=== PATIENT | male | born 1945 | race Caucasian/White ===

== ENCOUNTER 2021-10-22 07:07 | Day surgery (SDC) | payer OTHER ==
[2021-10-22] MEDS ORDERED: CEFAZOLIN SODIUM 1 GM/VIAL ONE (07:29)
[2021-10-22] MEDS ORDERED: Ringers Lactate 1,000 ML IV ONE (07:29)
[2021-10-22] MEDS ORDERED: propofoL 200 MG/20 ML VIAL IV ONE (07:58)
[2021-10-22] MEDS ORDERED: LIDOCAINE 1% MPF 5 ML VIAL ONE (07:58)
--- NOTE | 2021-10-22 08:40 | ENDO RPT ---
[address], [address] EGD WITH PEG PROCEDURE REPORT EXAM DATE: 10/22/2021 PATIENT NAME: Balwinder Cox MR #: [id number] BIRTHDATE: 1945 ATTENDING: Jesse Church DR STATUS: outpatient [employer] VESSEL: Kristine Ledezma RN and El Hobson [facility] INDICATIONS: The patient is a 76 yr old Male here for an EGD with PEG due to dysphagia and Oropharyngeal Cancer PROCEDURE PERFORMED: EGD with PEG placement EGD with snare polypectomy MEDICATIONS: Per Anesthesia. TOPICAL ANESTHETIC: none CONSENT: The patient understands the risks and benefits of the procedure and understands that these risks include, but are not limited to: sedation, allergic reaction, infection, perforation and/or bleeding. Alternative means of evaluation and treatment include, among others: physical exam, x-rays, and/or surgical intervention. The patient elects to proceed with this endoscopic procedure. DESCRIPTION OF PROCEDURE: During intra-op preparation period all mechanical medical equipment was checked for proper function. Hand hygiene and appropriate measures for infection prevention was taken. After the risks, benefits and alternatives of the procedure were thoroughly explained, Informed consent was verified, confirmed and timeout was successfully executed by the treatment team. The patient was anesthetized with topical anesthesia and the EG-[id number] ([id number]) endoscope was introduced through the mouth and advanced to the second portion of the duodenum. The instrument was slowly withdrawn as the mucosa was fully examined. A pedunculated polyp was found in the bulb of the duodenum. Monopolar cautery was performed. Polyp was snared, then cauterized with monopolar cautery. Polyp was retrieved and sent to pathology. The stomach was then inflated with air, and by a combination of transillumination and manual palpation, the site for the gastrostomy tube placement was selected and marked on the anterior abdominal wall. The skin of the anterior abdomen was surgically prepped and draped with sterile towels. Utilizing strict sterile technique, the selected site was then anesthetized with 1% xylocaine by injection into the skin and subcutaneous tissue. A 1 cm incision was made through the skin and subcutaneous tissue, and the needle/cannula assembly was then passed through the abdominal wall and through the anterior wall of the stomach, maintaining visualization with the endoscope. A snare device previously placed through the instrument channel was then opened and placed around the cannula, the needle was removed, and the insertion wire was passed through the cannula and into the stomach lumen. The snare was then loosened from the cannula, and repositioned to snare the insertion wire. The snare was then pulled up to the endoscope distal tip, and the scope was then withdrawn bringing with it the snare and insertion wire. The insertion wire was then released from the snare, and then loop-attached to the PEG PULL gastrostomy tube. Using the pull technique, the G-tube was then pulled into place by traction on the insertion wire at the abdominal wall end. The G-tube insertion site was then cleansed once again, and the external bolster was placed over the tube to secure it to the abdominal wall. A sterile dressing was then applied, and the procedure terminated. Retroflexed views revealed no abnormalities. The gastroscope was then slowly withdrawn and removed. ADVERSE EVENT: There were no complications. IMPRESSIONS: A pedunculated polyp was found in the bulb of the duodenum RECOMMENDATIONS: 1. acid suppression therapy 2. await biopsy results 3. follow-up: office 2 week(s) 4. begin feeding tomorrow 5. avoid NSAIDS 6. follow PEG suggestions REPEAT EXAM: for EGD. Jesse Church DR eSigned: Jesse Church DR 10/22/2021 8:40 AM cc: CPT CODES: ICD9 CODES: PATIENT NAME: Balwinder Cox MR#: [id number]
[2021-10-22 08:58] VITALS: BP 111/58; TEMP 97.6; O2SAT 99
[2021-10-22] MEDS ORDERED: HYDROCODONE/APAP 10/325 TAB ONE (09:04)
== END 2021-10-22 09:35 | disposition home or self-care (01) ==
LOC: OR 07:07
PROVIDERS: ATTEND Surgery
PROC: 0DB98ZX Excision of Duodenum, Via Natural or Artificial Opening Endoscopic, Diagnostic (ICD-10-PCS; 2021-10-22)
PROC: 0DH63UZ Insertion of Feeding Device into Stomach, Percutaneous Approach (ICD-10-PCS; principal; 2021-10-22 08:00)
DX: R13.10 Dysphagia, unspecified (principal); C10.9 Malignant neoplasm of oropharynx, unspecified; K63.5 Polyp of colon
CPT/HCPCS: 88305; 43246; 43251; J2704; J7120; J0690

== ENCOUNTER 2021-12-15 17:10 | Inpatient (IN) | payer OTHER ==
--- NOTE | 2021-12-21 10:51 | R.PREADM ---
PRE-ADMISSION SCREENING FORM SCREENING DATE AND TIME 12/15/2021 08:34 (CDT) ANTICIPATED REHAB ADMISSION DATE 12/17/2021 REFERRING FACILITY [facility] REFERRAL DATE AND TIME 12/15/2021 08:34 (CDT) REFERRAL ROOM# 203 ACUTE ADMIT DATE 12/09/2021 Previous Rehabilitation(s): No. 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 Mikal Clancy M.D. MR# [id number] NAME YE HAMILTON ADDRESS [address] [place] [address] PHONE [facility] [address] DATE OF 1945 AGE 76 SSN# [id number] GENDER male MARITAL STATUS PREF. LANGUAGE (IF NON-MALTESE) Macedonian ADMIT FROM 02 - [facility] PRE-HOSPITAL LIVING SETTING 01 - Home (private home/apt. board/care, assisted living, care home, transitional living) HOME TYPE AND DETAILS Type of home: single family house # of levels in the residence: 1 # of steps within the residence: 0 # of steps to enter the residence: 0 PRE-HOSPITAL LIVING WITH Family/Relatives FAMILY SUPPORT Yes PRIMARY FAMILY CONTACT NAME Ny Hamilton PRIMARY FAMILY CONTACT PHONE PRIMARY FAMILY CONTACT RELATIONSHIP Spouse PHONE PRIMARY FAMILY CONTACT ON ADM.? no IS PRIMARY FAMILY CONTACT AUTH. REP.? no 1ST EMERGENCY CONTACT Ny Hamilton 1ST CONTACT PHONE 1ST CONTACT RELATIONSHIP Spouse PHONE 1ST CONTACT ON ADM. no IS 1ST CONTACT AUTH. REP.? no PHONE 2ND CONTACT ON ADM.? no PATIENT EMPLOYMENT STATUS Retired (for age) PATIENT EMPLOYER No Employer PAYOR INFORMATION: 1ST PAYOR NAME [employer] 1ST PAYOR PHONE [phone] 1ST PAYOR INJURY/ILLNESS DUE TO ACCIDENT? No ANOTHER GREEN PARTY RESPONSIBLE? No PRIMARY REHAB/ACUTE DIAGNOSIS: Bilateral Pneumonia Bilateral Pneumonitis ONSET DATE 12/09/2021 REHAB IMPAIRMENT CATEGORY (CARMEN): 20 Miscellaneous (Misc) does NOT meet 60% rule PRIMARY DIAGNOSIS-RELATED SURGERIES: N/A INTERVENTIONS: - A-Fib Vitals will be monitored regularly and medications administered as indicated by Physician - Hypertension Blood pressure will be monitored regularly and medications administer per MD to manage effective bloo d pressure. - Pancytopenia Monitor lab values regularly and treat medically as indicated by physician - Pneumonia Interval Chest X-Rays as needed pt will be instructed on use of and be encouraged to use incentive spirometry Regular OOB activity and exercise to reduced risk for progression of condition patient has been receiving 2 antibiotics to address this - Orthostatic Hypotension Regularly assess standing blood pressures Manage condition medically as indicated by physician Use of compression stockings and abdominal binder as indicated Monitor level of hydration and ensure adequate fluid consumption - Malnutrition pt has been not tolerating tube feeds well Progress and monitor response to tube feeding to ensure adequate nutrition - Weakness Daily therapy services to enhance patient's functional strength and abilities. - Thrombocytopenia Regularly monitor lab values and transfuse platelets when needed. - COPD Educate pt on use of incentive spirometer and deep breathing exercises Monitory O2 saturation and other vitals RISK FOR COMPLICATIONS: - Weakness Strengthening exercises to be performed Regular therapeutic activity and exercise - Cardiac monitoring heart rate/signs and symptoms for cardiac distress medication management by physician - Skin Breakdown Nursing will assess skin daily using assessment tool and will place on Skin Breakdown Precautions as Indicated per protocol - Malnutrition Progress and monitor response to tube feeding to ensure adequate nutrition - Respiratory Failure pt presenting with pneumonia and bilateral pneumonitis Monitor patient's vitals and provide supplemental O2 if warranted Educate patient on and encourage use of incentive spirometry - Falls Educated pt on fall prevention strategies to reduce/eliminate fall risk pt is high risk for falls due to significant weakness. Monitor and treat orthostatic hypotension - Pain Educate patient on pain management strategies Clinical staff will assess patient's pain level every shift per protocol to monitor for pain manageme nt effectiveness SUMMARY OF ACUTE HOSPITALIZATION: Pt. is a 76 yo Right-handed male. On 12/09/2021 he was admitted to [facility] with diagnosis Bilateral Pneumonia. His impairment category is Medically Complex Conditions 17 - Respiratory Disorders - Non-ventilator Dependent (17.52). Pre-morbidly, Pt. was independent/mod-I in Locomotion, Safety Awareness, and Social Cognition; and he had good Transfers Control, Self-Care, Sphincter Control, Communication, and Endurance. Currently, he has deficits of Locomotion, Safety Awareness, Social Cognition, Balance, Sphincter Cont rol, Self-Care, Communication, Endurance, and Transfers Control. Pt. is now referred to [facility] for acute in-patient rehabilitation in order to maximize patient's functional independence in activities of daily living, strength, ROM, and mobi lity. Patient has realistic goal of being discharged at assistance level 7-Ind to reside at Home with Fami ly/Relatives. PAST MEDICAL HISTORY A-FIB HYPERTENSION Hypo-osmolality and hyponatremia (E87.1) COPD CANCER THROAT CHEMOTHERAPY DIZZINESS SHORTNESS OF BREATH ANEMIA Bilateral Pneumonitis Occlusion and stenosis of right carotid artery (I65.21) LEUKOPENIA Pancytopenia (D61.81) Thrombocytopenia Physical Deconditioning Orthostatic hypotension (I95.1) Autonomic Dysfunction Malnutrition PAST SURGICAL HISTORY: KNEE SURGERY PEG TUBE MEDICATION ALLERGIES: No Known Drug Allergies (NKDA) ENVIRONMENTAL ALLERGIES: - Substance Allergies None Known - Other Allergies None Known CODE STATUS: Full code WEIGHT/HEIGHT/BMI: WEIGHT 210 lbs BMI N/A DIET: - Diet Type Regular - Diet - Solid Texture Regular - Diet - Liquid Texture Regular - Tube Feed N/A SKIN DIAGRAM: on Chest; extent - small; stage - NS(Not Stageable). Treatment - . REVIEW OF SYSTEMS: - Gen Alert and awake Lying in bed No apparent distress Oriented to: person, time, and place - Vital Signs Temperature: 98.0 F SBP/DBP: 136/78 Pulse: 78 Resp: 17 Vital signs stable, afebrile - CVS RRR VITAL SIGNS Temperature: 98.0 F SBP/DBP: 136/78 Pulse: 78 Resp: 17 Vital signs stable, afebrile MEDICATIONS/TREATMENT: Other- See attached MAR (Medication Administration Record). CURRENT SPHINCTER CONTROL: Pre-hospital bladder status: unspecified # of bladder accidents in the last 7 days prior to screenin Pre-hospital bowel status: unspecified # of bowel accidents in the last 7 days prior to screenin Last Bowel Movement Date: 12/15/2021 CURRENT LOCOMOTION STATUS: distance walked 5 feet DETAILED CURRENT FUNCTIONAL STATUS: - Bladder accident frequency: 7-Ind - No accidents in the past 7 days - Bowel accident frequency: 7-Ind - No accidents in the past 7 days - Walking score based on distance walked: 0(N/A) score based on distance walked: 1(<=50ft) - Wheelchair score based on distance traveled: 0(N/A) QI SCORES: - Self-Care A. Eating 03-Partial/moderate assistance B. Oral hygiene 02-Substantial/maximal assistance C. Toileting hygiene 02-Substantial/maximal assistance E. Shower/bathe self 02-Substantial/maximal assistance F. Upper body dressing 02-Substantial/maximal assistance G. Lower body dressing 02-Substantial/maximal assistance H. Putting on/taking off footwear 88-Not attempted due to medical condition or safety concerns - Mobility A. Roll left and right 03-Partial/moderate assistance B. Sit to lying 03-Partial/moderate assistance C. Lying to sitting on side of bed 03-Partial/moderate assistance D. Sit to stand 02-Substantial/maximal assistance E. Chair/wmy-uc-ldayd transfer 02-Substantial/maximal assistance F. Toilet transfer 02-Substantial/maximal assistance G. Car transfer 88-Not attempted due to medical condition or safety concerns I. Walk 10 feet 88-Not attempted due to medical condition or safety concerns J. Walk 50 feet with two turns 88-Not attempted due to medical condition or safety concerns K. Walk 150 feet 88-Not attempted due to medical condition or safety concerns L. Walking 10 feet on uneven surfaces 88-Not attempted due to medical condition or safety concerns M. 1 step (curb) 88-Not attempted due to medical condition or safety concerns N. 4 steps 88-Not attempted due to medical condition or safety concerns O. 12 steps 88-Not attempted due to medical condition or safety concerns P. Picking up object 88-Not attempted due to medical condition or safety concerns R. Wheel 50 feet with two turns 88-Not attempted due to medical condition or safety concerns S. Wheel 150 feet 88-Not attempted due to medical condition or safety concerns - Bladder and Bowel Bladder continence Bowel continence - Endurance Fair - Balance Poor - Safety Awareness Fair CURRENT FUNC. DEFICITS: Self-Care, Mobility, Endurance, Balance, and Safety Awareness CURRENT / PREVIOUS ASSISTIVE DEVICES: Rolling Walker HISTORY OF FALLS. HAS THE PATIENT HAD TWO OR MORE FALLS IN THE PAST YEAR OR ANY FALL WITH INJURY IN T HE PAST YEAR?: Unknown PRIOR SURGERY. DID THE PATIENT HAVE MAJOR SURGERY DURING THE 100 DAYS PRIOR TO ADMISSION?: Yes THERAPY NOTES FROM ACUTE CARE: Attached. SPECIAL NEEDS: - Safety Concerns Skin breakdown precautions needed due to skin breakdown risk PATIENT NEEDS ACTIVE AND ONGOING THERAPEUTIC INTERVENTION OF MULTIPLE THERAPY DISCIPLINES, INCLUDING: - Dietary and Nutrition Adequate Nutrition. Nutritional Education. Nutritional Supplements. Evaluate and Treat. - Occupational Therapy Cognitive Retraining. Patient needs Occupational Therapy for a daily minimum of 1.5 hours at least 5 out of 7 days, to improve Activities of Daily Living, including: Eating, Grooming, Bathing, Dressing, Toileting, Toilet Transfers, Community Reintegration, Higher functional activities, Adaptive Equipme nt, Splinting, Household Tasks, and Other activities as determined. ADL Training. Safety Awareness. H ousehold Tasks. Evaluate and Treat. Patient/Family Education. UE Strengthening. Visual Perceptual Tra ining. - Speech Therapy Cognitive Training. Expressive Language Skills. Memory Strategies. Patient needs Speech Therapy for a daily minimum of 1.5 hours at least 5 out of 7 days, to improve: Swallowing, Cognition, Language Ski lls, and Compensatory Strategies. Receptive Language Skills. Speech Intelligibility Training. Evaluat e and Treat. - Physical Therapy Patient needs Physical Therapy for a daily minimum of 1.5 hours at least 5 out of 7 days, to improve: Mobility, Strengthening, Transfers, Stretching, ROM, Endurance, Ability to manage stairs, Gait, and Balance. Balance Training. Evaluate and Treat. Gait Training. Safety Awareness. LE Strengthening. Tra nsfer Training. Mobility Training. PATIENT NEEDS CLOSE MEDICAL SUPERVISION BY A REHABILITATION PHYSICIAN FOR: Coordination of Treatment Team Wound Care Pain Management Medical and Co-Morbidity Management DVT Management Bowel and Bladder Management PATIENT REQUIRES 24X7 REHAB NURSING FOR MEDICAL AND FUNCTIONAL MGT. OF THE FOLLOWING DEFICITS: Disease Management Medication Management Patient requires 24x7 Rehabilitation Nursing for: Pain Issues, Identifying and preventing risk factor s, Monitoring and reporting current medical conditions, Assisting with ambulation and transfer, Oscar ting with all ADL-s, Teaching patients about disease process and medications, Family teaching, Provid ing safe environment, Bowel and Bladder Issues, Skin Integrity, and Medication Management Patient/Family Education Providing Safe Environment Skin Integrity PATIENT REQUIRES INTENSIVE, COORDINATED INTERDISCIPLINARY APPROACH TO REHAB: Arranging Home Equipment/Services Discharge Planning Family Intervention/Training Patient needs Dietary and Nutrition Services for: Adequate Nutrition, Nutritional Supplements, and Nu tritional Education Patient needs Rubber Goods Finisher and/or Case Management for: Discharge Planning, Arranging Home Equipmen t or Services, and Family Interventions Rubber Goods Finisher/Case Management PATIENT REHAB POTENTIAL: Mumtaz HAMILTON is able and expected to receive 3 hours of individualized therapy daily on at least 5 of every 7 days Mumtaz HAMILTON's prognosis for significant practical improvement within a reasonable period of time appe ars Good Expected level of measurable improvement will be of a practical value to Mumtaz HAMILTON's functional cap acity or adaptations to impairments Has a viable Discharge Plan Medically appropriate; condition is sufficiently stable to participate in intensive rehab program DISCHARGE PLAN: - Estimated Length of Stay (days) 13. - Consensus on plan Discharge plan has been discussed with primary caregiver. Patient/Family is in agreement with the marilyn n. Primary caregiver is in agreement with the plan. - Patient/Family Goals Return home independently. - Planned Living Setting Upon Discharge Home, to live with Family/Relatives. Transitional Living. RECOMMENDED CARE LEVEL: IRF RECOMMENDATION DETAILS: Recommended Admission to Comprehensive Rehabilitation Program to Increase Functional [place] SCREENER'S COMPLETENESS CONFIRMATION: - Screening Confirmation The patient data collection on this preadmission screening form is finished PHYSICIANS REVIEW AND ADMISSION DETERMINATION Admit - Based on my review of the Pre-Admission Screening results, in my medical judgment and experie nce, I concur with the findings and recommend admission to [facility], as this patient requires an IRF level of care. SIGNATURE PANEL: Tube Machine Operator - [electronically] signed by Howard Crooks on 12/20/2021 at 12:22 (CDT) Tube Machine Operator - [electronically] signed by Jorge Green PT on 12/21/2021 at 10:19 (CDT) Physician Reviewer - [electronically] signed by Dr. Mikal Clancy M.D. on 12/21/2021 at 10:50 (CDT )
--- OUTSIDE RECORDS SUMMARY | 2021-12-21 14:26 | XMS REPORT | Continuity of Care Document ---
:1945 Author Organization [facility] t Address [address] [place] [address] Care Team Providers Name Role Phone LISANDRO Primary Care Physician Unavailable Ghassan Attending Clinician Unavailable LISANDRO Attending Clinician Unavailable Ghassan Admitting Clinician Unavailable LISANDRO Admitting Clinician Unavailable Payers Payer Name Policy Type Policy Number Effective Date Expiration Date Juan BARDALES (MEDICARE [id number] 2019 REPLACEMENT PPO) 00:00:00 Problems Condition Condition Condition Status Onset Resolution Last Treating Co mments Source Name Details Category Date Date Treatment Clinician Date Hyperlipid Hyperlipid Problem Active [facility] Essential Essential Problem Active [facility] hypertensi Hypertensi da on [facility] Deep Deep Problem Active [facility] venous Venous da thrombosis Thrombosis Me dical of lower of Lower Group extremity Extremity 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 Social History Smoking Status Start Date Stop Date Source Former Smoker [facility] Medications Ordered Filled Start Stop Current Ordering Indication Dosage Frequency Signature Comments Components Source Medication Medication Date Date Medication? Clinician (SIG) Name Name atorvastati atorvastati No atorvastat [facility] n 40 mg n 40 mg in 40 mg da tablet tablet tablet Medical Group losartan losartan No losartan [facility] 100 mg 100 mg 100 mg da tablet TAKE tablet TAKE tablet Medical 1 TABLET BY 1 TABLET BY TAKE 1 Group MOUTH EVERY MOUTH EVERY TABLET BY DAY DAY MOUTH DIRECTED DIRECTED EVERY DAY DIRECTED losartan losartan No 1 Q1D losartan [facility] 100 100 100 da mg-hydrochl mg-hydrochl mg-hydroch Medical orothiazide orothiazide [facility] 25 mg 25 mg de 25 mg tablet Take tablet Take tablet 1 tablet 1 tablet Take 1 every day every day tablet by oral by oral every day route. route. by oral route. Mucinex Mucinex No Mucinex [facility] sotalol 80 sotalol 80 No sotalol 80 [facility] mg tablet mg tablet mg tablet da Take 1 Take 1 Take 1 Medical tablet tablet tablet Group twice a day twice a day twice a by oral by oral day by route as route as oral route directed directed as for 30 for 30 directed days. days. for 30 days. tamsulosin tamsulosin No tamsulosin [facility] 0.4 mg 0.4 mg 0.4 mg da capsule capsule capsule Medica l Take 1 Take 1 Take 1 Group capsule capsule capsule every day every day every day by oral by oral by oral route as route as route as directed directed directed for 30 for 30 for 30 days. days. days. Tylenol Tylenol No Tylenol [facility] Vitamin D2 Vitamin D2 No Vitamin D2 [facility] Xarelto 20 Xarelto 20 No Xarelto 20 [facility] mg tablet 1 mg tablet 1 mg tablet da tab po qd tab po qd 1 tab po M edical qd Group Zyrtec 10 Zyrtec 10 No 1 Q1D Zyrtec 10 [facility] mg tablet mg tablet mg tablet da Take 1 Take 1 Take 1 Medical tablet tablet tablet Group every day every day every day by oral by oral by oral route. route. route. Vital Signs Vital Name Observation Time Observation Value Comments Source BP Diastolic 2019-08-07 00:00:00 79 mm[Hg] [facility] Height 2019-08-07 00:00:00 74 [in_i] [facility] BMI (Body Mass 2019-08-07 00:00:00 34.8 kg/m2 [facility] Group BP Systolic 2019-08-07 00:00:00 162 mm[Hg] [facility] Body Weight 2019-08-07 00:00:00 271.4 [lb_av] [facility] Procedures Procedure Date / Time Performed Performing Clinician [facility] e TYMPANOMETRY 2019-08-07 00:00:00 [facility] K[facility] Tonsillectomy [facility] Plan of Care Planned Activity Planned Date Details Comments Source Instructions [facility] Encounters Start End Encounter Admission Attending Care Care Encounter Source Date/Time Date/Time Type Type Clinicians Facility Department ID 2020-06-12 2020-06-12 [facility] [id number] [facility] 02:20:00 02:20:00 [id number] 2019-11-03 2019-11-03 [facility] [id number] [facility] 01:25:00 01:25:00 [id number] 2019-09-29 2019-09-29 [facility] [id number] [facility] 10:37:00 10:37:00 0306 [facility] 2019-08-25 2019-08-25 [facility] [id number] [facility] 12:05:00 12:05:00 0131 [facility] 2019-08-09 2019-08-09 [facility] [id number] [facility] 04:06:00 04:06:00 0115 [facility] 2019-08-07 2019-08-07 Out[facility] MMG [id number] [facility] 05:25:00 05:25:00 0113 [facility] 2019-08-07 2019-08-07 [facility] [place] - [id number] [facility] 00:00:00 00:00:00 MD Venancio: [address] - [address], Otolaryngol [place], [facility] [place] [address] , Ph. Results Test Description Test Time Test Comments Results Result Comments Source tympanogram 2019-08-07 14:41:31 Test Item Value Reference Range Interpretation Comme nts Right (test code = Right) Type C Peak is on Left [facility] Disease [id number] 13:43:00 Test Item Value Reference Range Interpretation Comments HLA-B27 Negative HLA-B*27 Negati veB27 allele (test code = interpretation for all loci based 820484) on IMGT/HLAdata base version 3.25This test w as developed and its performance characteristics determined by [facility]. It combs s not been cleared or approvedby [facility] Food and Drug Administration. HLA Lab CLIA ID Number [id number] test was performed using PCR (Polymerase Chain Reaction) /SSOP(Sequence Specific Oligon ucleotide Probes) technique. SBT (SequenceBased Typing) and/or SSP (Sequence Specific Primer s) may be used assupplemental methods when necessary. Ple ase contact HLA CustomerService at if you have any questions. Director of HLA Laboratory Dr Sorin Reza, PhD Sed Rate ESR ([place])2017-04-30 19:13:00 Test Item Value Reference Range Interpretation Comments ESR (test code = HESR) 20 mm/Hr 0-9 H Lipid [id number] 18:59:00 Test Item Value Reference Range Interpretation Comments Cholesterol (test 239 mg/dL 0-200 H code = CHOL) Triglycerides (test 80 mg/dL 9-200 N code = TRIG) HDL (test code = 48 mg/dL 40-60 N HDL) Chol/HDL (test code 5.0 Ratio 0.0-5.0 N = CHOLPHDL) LDL, Calculated 175 mg/dL 0-130 H (NOTE)RISK O F HEART (test code = LDLC) DISEASEPu blished by [place] Heart AssociationAnal yte Optim al Boderline Increased RiskC HOL <200 200-239 >240TRI G <150 150-199 >200HDL Male: >60 <40HDL Female: >60 <50 LDL < 100 130-15 9 >160 LDL NEAR OPTIMAL IS 100- 129 VLDL (test code = 16 mg/dL 5-40 N VLDL) LDL/HDL (test code = 4 LDLPHDL) Comprehensive Metabolic [id number] 18:59:00 Test Item Value Reference Range Interpretation Comments Sodium (test code = 139 mmol/L 135-145 N NA) Potassium (test 4.9 mmol/L 3.5-5.1 N code = K) Chloride (test code 103 mmol/L 98-105 N = CL) Carbon Dioxide 26 mmol/L 22-29 N (test code = CO2) Glucose (test code 92 mg/dL 70-115 N = GLU) Blood Urea Nitrogen 26 mg/dL 8-23 H (test code = BUN) Creatinine (test 1.4 mg/dL 0.7-1.2 H code = CREAT) Calcium (test code 8.8 mg/dL 8.3-10.5 N = CA) Prot Total (test 6.7 g/dL 6.4-8.3 N code = TP) Albumin (test code 4.1 g/dL 3.5-5.2 N = ALB) A/G Ratio (test 1.6 Ratio code = AGRATIO) Globulin (test code 2.6 2.9-3.1 L = GLOB) Bili Total (test 0.5 mg/dL 0.1-0.9 N code = TBIL) Alk Phos (test code 53 U/L 40-129 N = APHOS) AST (test code = 15 U/L 1-40 N AST) ALT (test code = 14 U/L 1-41 N ALT) BUN/Creatinine 18.6 Ratio (test code = BCRATIO) Anion Gap (test 10 mmol/L 7-16 N code = AGAP) Estimated GFR (test 53 eGFR (es timated code = GFR) mL/min/1.73m2 Glomerular Raul tration Rate) is an est imated value,calculate d from the patient's s ti creatinine usin g the MDRD equation.I t is NOT the patient 's actual GFR. The eGFR provides a more clinicallyusefu l measure of kidn ey disease than se rum creatinine alone.This calculation aleksandra es sex and race into account, if the informationis provided. If th e race is not provided , and the patient isAfrican-Ameri can, multiply by 1.2 12. If sex is not prov ided, and thepatient is female, multipl y by 0.742. Results for patients <18 ye ars ofage have not been validated by th e MDRD study and shoul d be interpretedwith caution.eGFR Re sult Interpretation: eGFR > or = 60 is in t he Normal RangeeGF R < 60 may mean kidney diseaseeGFR < 1 5 may mean kidney failureRange s recommended by the National Kidney Foundation,http ://nkd ep.nih.gov [id number] 18:59:00 Test Item Value Reference Range Interpretation Comments NT ProBnp (test code = PBNP) 454 pg/mL 0-124 H CBC with [id number] 18:04:00 Test Item Value Reference Range Interpretation Comments WBC (test code = WBC) 5.4 K/cumm 4.4-10.5 N RBC (test code = RBC) 4.31 M/cumm 4.10-5.70 N Hemoglobin (test code = HGB) 13.7 gm/dL 13.4-17.4 N Hematocrit (test code = HCT) 42.0 % 38.7-52.0 N MCV (test code = MCV) 97.3 fL 80-100 N MCH (test code = MCH) 31.7 pg 27.0-32.5 N MCHC (test code = MCHC) 32.5 g/dL 32.0-37.5 N RDW (test code = RDW) 13.9 % 11.5-14.5 N Platelet Count (test code = 176 K/cumm 140-440 N PLTCT) MPV (test code = MPV) 9.6 fL Diff Method (test code = DIFFM) Auto Neutrophil (test code = NEUT) 65.1 % 36-70 N Lymphocyte (test code = LYMPH) 23.0 % 12-44 N Monocyte (test code = MONO) 7.8 % 0-11 N Eosinophil (test code = EOS) 3.6 % 0-7 N Basophil (test code = BASO) 0.4 % 0-2 N Neutro Abs (test code = ANEUT) 3.5 K/cumm 1.6-7.4 N Lymph Abs (test code = ALYMPH) 1.3 K/cumm 0.5-4.6 N [place] Abs (test code = AMONO) 0.4 K/cumm 0.0-1.2 N Eos Abs (test code = AEOS) 0.20 K/cumm 0.00-0.74 N Baso Abs (test code = ABASO) 0.0 K/cumm 0.00-0.21 N
[2021-12-21] MEDS ORDERED: HYDROCODONE/APAP 5/325 MG TAB PO PRN (15:29)
[2021-12-21] MEDS ORDERED: ACETAMINOPHEN 500 MG TAB PO PRN (15:31)
[2021-12-21] MEDS ORDERED: MAGNESIUM HYDROXIDE 8% 30 ML PO PRN (15:34)
[2021-12-21] MEDS ORDERED: ONDANSETRON 4 MG (ODT) TAB PO PRN (15:40)
[2021-12-21] MEDS ORDERED: IPRATROPIUM BROM 0.5MG/2.5ML NEB PRN (15:41)
[2021-12-21] MEDS ORDERED: LACTULOSE 20 GM/30 ML UCUP PO PRN (15:45)
[2021-12-21] MEDS ORDERED: MECLIZINE HCL 12.5 MG TAB PO PRN (15:46)
[2021-12-21 16:04] VITALS: BMI 26.8
[2021-12-21] MEDS ORDERED: SODIUM CHLORIDE 1 GM TAB PO SCH (17:00)
[2021-12-21] MEDS: JEVITY 1.5 CAL LIQUID 1,000 ML BOT FT SCH ×2 (17:46→19:45)
[2021-12-21 17:54] LABS: Urine Appearance Clear (Clear); Urine Bilirubin Negative (Negative); Urine Blood Negative (Negative); Urine Color Yellow (Yellow); Urine Glucose Negative (Negative); Urine Protein Negative (Negative); Urine Urobilinogen 0.2 mg/dL (0.2-1.0); Urine pH 8.5 (5.0-7.0)
[2021-12-21] MEDS ORDERED: JEVITY 1.5 CAL LIQUID 1,000 ML BOT FT SCH (18:00)
[2021-12-21 18:08] LABS: Urine Microscopic Reflex ORDER UMIC
[2021-12-21 18:13] LABS: Urine Bacteria >50 /HPF (NONE SEEN); Urine RBC NONE SEEN /HPF (NONE SEEN)
[2021-12-21] MEDS ORDERED: cloNIDine HCL 0.1 MG TAB PO PRN (19:11)
[2021-12-21] MEDS ORDERED: cloNIDine HCL 0.1 MG TAB FT PRN (19:14)
[2021-12-21] MEDS: ZINC OXIDE 20% OINTMENT 60gm TOP SCH (19:44)
[2021-12-21] MEDS: MELATONIN 5 MG TABLET PO PRN (19:45)
[2021-12-21] MEDS: CRANBERRY FRUIT EXTRACT 400 MG CAP FT SCH (19:45)
[2021-12-21] MEDS: ATORVASTATIN 40 MG TAB FT SCH (19:46)
[2021-12-21] MEDS ORDERED: APIXABAN 2.5 MG TABLET PO SCH (20:00)
[2021-12-21] MEDS ORDERED: clonazePAM 0.5 MG TAB PO PRN (20:14)
[2021-12-21] MEDS: APIXABAN 2.5 MG TABLET FT SCH (20:14)
[2021-12-21] MEDS ORDERED: ACETAMINOPHEN 325 MG TABLET PO PRN (20:14)
[2021-12-21] MEDS ORDERED: clonazePAM 0.5 MG TAB FT PRN (20:16)
[2021-12-21] MEDS ORDERED: ATORVASTATIN 40 MG TAB PO SCH (21:00)
[2021-12-21] MEDS ORDERED: ONDANSETRON 4 MG (ODT) TAB FT PRN (21:31)
[2021-12-21] MEDS ORDERED: MECLIZINE HCL 12.5 MG TAB FT PRN (21:31)
[2021-12-21] MEDS ORDERED: MAGNESIUM HYDROXIDE 8% 30 ML FT PRN (21:31)
[2021-12-22 04:53] LABS: Absolute Lymphocytes (CBC) 0.6 K/uL (0.7-4.9); Hematocrit 25.1 % (39.6-49.0); MPV 8.2 fL (7.6-11.3); RBC Red Blood Cell Count 2.59 M/uL (4.33-5.43)
[2021-12-22 05:17] LABS: Albumin 2.4 g/dL (3.4-5.0); Magnesium 1.8 mg/dL (1.8-2.4); Potassium 4.2 mmol/L (3.5-5.1); Prealbumin 14.2 mg/dL (20-40)
[2021-12-22 05:33] LABS: Blood Morphology Comment NOT SEEN (NOT SEEN); Platelet Estimate ADEQ
[2021-12-22] MEDS ORDERED: DIGOXIN 0.25 MG TABLET PO SCH (08:00)
[2021-12-22] MEDS ORDERED: TAMSULOSIN 0.4 MG SR CAP PO SCH (08:00)
[2021-12-22] MEDS ORDERED: FAMOTIDINE 20 MG TAB FT SCH (08:00)
[2021-12-22] MEDS ORDERED: FAMOTIDINE 20 MG TAB PO SCH (08:00)
[2021-12-22] MEDS ORDERED: TAMSULOSIN 0.4 MG SR CAP FT SCH (08:00)
[2021-12-22] MEDS ORDERED: FLUDROCORTISONE 0.1 MG TAB PO SCH (08:00)
[2021-12-22] MEDS ORDERED: TBO-FILGRASTIM 480 MCG/0.8 ML SYR SQ SCH (08:00)
[2021-12-22] MEDS: CRANBERRY FRUIT EXTRACT 400 MG CAP FT SCH ×2 (08:13→20:25)
--- NOTE | 2021-12-22 08:13 | P.CNS ---
Date of Consult: 12/22/21 Reason for Consult: Hyponatremia Requesting Physician: Mikal Clancy Chief Complaint: Weakness History of Present Illness: 76 yo WM BPH transferred from [facility] for moderate, persistent weakness requiring rehabilitation. His admission at [facility] was complicated by hypotension and hyponatremia. Allergies No Known Allergies Allergy (Verified 10/21/21 14:44) Home medications list reviewed: Yes Home Medications: Atorvastatin Calcium [Lipitor] 40 mg PO BEDTIME 10/21/21 Tamsulosin HCl [Flomax] 0.4 mg PO DAILY 10/21/21 Acetaminophen [Tylenol Extra Strength] 500 mg FT Q6H PRN MDD max 4gm/24hrs 12/21/21 Digoxin [Lanoxin] 0.25 mg FT DAILY 12/21/21 Famotidine [Pepcid] 20 mg FT BEDTIME 12/21/21 Filgrastim [Neupogen] 300 mcg SQ DAILY 12/21/21 Fludrocortisone [Florinef] 0.1 mg FT DAILY 12/21/21 Hydrocodone 5/APAP 325 [[place] 5/325] 1 tab FT Q6H PRN 12/21/21 Ipratropium/Albuterol Sulfate [Iprat-Albut 0.5-3(2.5) mg/3 ml] 1 inh NEB Q4H PRN 12/21/21 Mag Hydroxide 8% [Milk Of Magnesia] 30 ml FT Q12H PRN 12/21/21 Magic Mouthwash [Magic Mouthwash*] 15 ml PO Q6H PRN 12/21/21 Meclizine HCl [Antivert] 25 mg FT Q6H PRN 12/21/21 Melatonin 10 mg PO BEDTIME PRN 12/21/21 Ondansetron [Zofran] 4 mg FT Q6H PRN 12/21/21 Sodium Chloride 1 gm FT BID 12/21/21 Zinc Oxide [Diaper Rash Ointment] 1 juan TOP TID 12/21/21 - Past Medical/Surgical History Diabetic: No -: BPH with LUTS -: Hyponatremia -: Malnutrition - Social History Alcohol use: No CD- Drugs: Yes Caffeine use: No Place of Residence: Home Review of Systems 10-point ROS is otherwise unremarkable Physical Examination Temp Pulse Resp BP Pulse Ox 98.4 F 70 17 179/79 H 97 05/30/22 07:30 12/22/21 07:30 12/22/21 07:30 12/22/21 07:30 12/22/21 07:30 General: In no apparent distress, Oriented x3, Cooperative HEENT: Atraumatic Neck: Supple Respiratory: Clear to auscultation bilaterally Cardiovascular: Regular rate/rhythm, Edema Gastrointestinal: Soft and benign, Non-distended Musculoskeletal: No clubbing, No contractures Integumentary: No rashes, No cyanosis Neurological: Abnormal speech Laboratory Data (last 24 hrs) 12/22/21 04:22: Sodium 135 L, Potassium 4.2, BUN 13, Creatinine 0.73, Glucose 91, Magnesium 1.8 12/22/21 04:22: WBC 6.4, Hgb 8.6 L, Hct 25.1 L, Plt Count 68 L Conclusions/Impression: Hyponatremia -Continue Florinef -Continue NaCl tabs HTN -Consider reducing Florinef LE Edema -Daily weight Moderate malnutrition -Continue Jevity Anemia in chronic illness Iron Deficiency 15% Thrombocytopenia -Monitor H&H -Continue iron supplementation BPH with LUTS -Continue Flomax Thank you kindly for the consultation.
[2021-12-22] MEDS: SODIUM CHLORIDE 1 GM TAB FT SCH ×2 (08:14→17:09)
[2021-12-22] MEDS: JEVITY 1.5 CAL LIQUID 1,000 ML BOT FT SCH ×5 (08:14→20:27)
[2021-12-22] MEDS: FLUDROCORTISONE 0.1 MG TAB FT SCH (08:14)
[2021-12-22] MEDS: DIGOXIN 0.25 MG TABLET FT SCH (08:14)
[2021-12-22] MEDS: APIXABAN 2.5 MG TABLET FT SCH ×2 (08:15→20:26)
[2021-12-22] MEDS: ZINC OXIDE 20% OINTMENT 60gm TOP SCH ×3 (08:15→20:27)
[2021-12-22] MEDS: HYDROCODONE/APAP 5/325 MG TAB FT PRN ×3 (08:21→20:32)
[2021-12-22] MEDS: MAGIC MOUTHWASH 180 ML BTL PO PRN (15:32)
--- NOTE | 2021-12-22 17:19 | R.HP ---
HISTORY AND PHYSICAL FACILITY: [facility] ENCOUNTER DATE AND TIME: 12/22/2021 13:21 (CDT) MR#: [id number] NAME YE HAMILTON ADDRESS: [address] [place] [address] CITY: [place]IP [phone] PHONE: DATE OF : 1945 AGE: 76 SSN# [id number] GENDER: Male MARITAL STATUS PRE-HOSPITAL LIVING SETTING 01 - Home (private home/apt. board/care, assisted living, chcf, transitional living) PRE-HOSPITAL LIVING WITH Family/Relatives ENCOUNTER PHYSICIAN: Dr. Mikal Clancy M.D. REFERRING DOCTOR: SHINE SOOD MD DATE OF ADMISSION: 12/21/2021 15:21 (CDT) REFERRING FACILITY [facility] HOME TYPE AND DETAILS: Type of home: single family house # of levels in the residence: 1 # of steps within the residence: 0 # of steps to enter the residence: 0 ONSET DATE: 12/09/2021 PRIMARY DIAGNOSIS-RELATED SURGERIES: N/A HISTORY OF PRESENT ILLNESS (HPI): Pt. is a 76 yo Right-handed male. On 12/09/2021 he was admitted to [facility] with diagnosis Bilateral Pneumonia. His impairment category is Medically Complex Conditions 17 - Respiratory Disorders - Non-ventilator Dependent (17.52). Pre-morbidly, Pt. was independent/mod-I in Locomotion, Safety Awareness, and Social Cognition; and he had good Transfers Control, Self-Care, Sphincter Control, Communication, and Endurance. Currently, he has deficits of Locomotion, Safety Awareness, Social Cognition, Balance, Sphincter Cont rol, Self-Care, Communication, Endurance, and Transfers Control. Pt. is now referred to [facility] for acute in-patient rehabilitation in order to maximize patient's functional independence in activities of daily living, strength, ROM, and mobi lity. Patient has realistic goal of being discharged at assistance level 7-Ind to reside at Home with Fami ly/Relatives. 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) LEUKOPENIA Pancytopenia (D61.81) Thrombocytopenia Physical Deconditioning Orthostatic hypotension (I95.1) Autonomic Dysfunction Malnutrition PAST SURGICAL HISTORY: KNEE SURGERY PEG TUBE SOCIAL HISTORY: - Home Living Family/Relatives REVIEW OF SYSTEMS: - Gen No Chills Fatigue No Fever - Eyes No Double Vision No itchiness - ENMT Difficulty Swallowing - CVS No Chest Discomfort No Chest Pain Fatigue No Weight Gain - Resp No Cough No Shortness of Breath - GI Continent No Abdominal Pain No Constipation No Diarrhea - Continent No Kidney Pain No Painful Urination No Urinary Urgency - MSK No Joint Pain Muscle Cramps Stiffness - Skin No Itching No Rash No Suspicious Lesions - Neuro Coordination Difficulty Difficulty with Concentration No Memory Loss No Seizures Weakness - Psych No Anxiety No Depression No HIV Exposure No Persistent Infections No Seasonal Allergies - Endo No Cold/Heat Intolerance No Excessive Hunger No Excessive Thirst No Excessive Urination PHYSICAL EXAM - Gen Alert and awake Lying in bed No apparent distress Oriented to: person, time, and place - Skin No skin breakdown. Normacephalic - Eyes No abnormalities - ENMT No abnormalities - Neck No pain - CVS RRR - Chest No abnormalities - Resp No wheezing - Abd Soft - GI Non distended Deferred - No abnormalities - Ext No significant edema - MSK 4+/5 weakness in left lower extremity - Neuro 4/5 strength left lower extremity. - Psych No abnormalities VITAL SIGNS Temperature: 98.2 F SBP/DBP: 130/75 Pulse: 75 Resp: 16 NURSING: - Shower allowing shower ACTIVITIES OOB only with supervision QI SCORES: - Self-Care A. Eating 03-Partial/moderate assistance B. Oral hygiene 02-Substantial/maximal assistance C. Toileting hygiene 02-Substantial/maximal assistance E. Shower/bathe self 02-Substantial/maximal assistance F. Upper body dressing 02-Substantial/maximal assistance G. Lower body dressing 02-Substantial/maximal assistance H. Putting on/taking off footwear 88-Not attempted due to medical condition or safety concerns - Mobility A. Roll left and right 03-Partial/moderate assistance B. Sit to lying 03-Partial/moderate assistance C. Lying to sitting on side of bed 03-Partial/moderate assistance D. Sit to stand 02-Substantial/maximal assistance E. Chair/bre-mt-errrl transfer 02-Substantial/maximal assistance F. Toilet transfer 02-Substantial/maximal assistance G. Car transfer 88-Not attempted due to medical condition or safety concerns I. Walk 10 feet 88-Not attempted due to medical condition or safety concerns J. Walk 50 feet with two turns 88-Not attempted due to medical condition or safety concerns K. Walk 150 feet 88-Not attempted due to medical condition or safety concerns L. Walking 10 feet on uneven surfaces 88-Not attempted due to medical condition or safety concerns M. 1 step (curb) 88-Not attempted due to medical condition or safety concerns N. 4 steps 88-Not attempted due to medical condition or safety concerns O. 12 steps 88-Not attempted due to medical condition or safety concerns P. Picking up object 88-Not attempted due to medical condition or safety concerns R. Wheel 50 feet with two turns 88-Not attempted due to medical condition or safety concerns S. Wheel 150 feet 88-Not attempted due to medical condition or safety concerns - Bladder and Bowel Bladder continence Bowel continence - Endurance Fair - Balance Poor - Safety Awareness Fair CURRENT FUNC. DEFICITS: Self-Care, Mobility, Endurance, Balance, and Safety Awareness MEDICATIONS: - Other See attached MAR (Medication Administration Record) ASSESSMENT: Pt. is a 76 yo Right-handed male.On 12/09/2021 he was admitted to [facility] with diagnosis B ilateral Pneumonia.His impairment category is Medically Complex Conditions 17 - Respiratory Disorder s - Non-ventilator Dependent (17.52).Pre-morbidly, Pt. was independent/mod-I in Locomotion, Safety Aw areness, and Social Cognition; and he had good Transfers Control, Self-Care, Sphincter Control, Commu nication, and Endurance.Currently, he has deficits of Locomotion, Safety Awareness, Social Cognition, Balance, Sphincter Control, Self-Care, Communication, Endurance, and Transfers Control.Pt. is now re ferred to [facility] for acute in-patient rehabilitation in order to maximize patient's functional independence in activities of daily living, strength, ROM, and mobility.- Rehab Goal Patient has realistic goal of being discharged at assistance level 7-Ind to reside at Home with Fami ly/Relatives. - Physical Therapy Gait dysfunction - to improve, our physical therapists will perform initial evaluation of pt's status upon admission and devise an individualized program for Gait Training, and Wheel Chair mobility Inability to transfer - to improve, our physical therapists will perform initial evaluation of pt's s tatus upon admission and devise an individualized program for Bed mobility Need for home safety evaluation - to improve, our physical therapists will perform initial evaluation of pt's status upon admission and devise an individualized program for Home Evaluation Need in caregiver upon discharge - to improve, our physical therapists will perform initial evaluatio n of pt's status upon admission and devise an individualized program for Caregiver Training New precaution - to improve, our physical therapists will perform initial evaluation of pt's status u blessing admission and devise an individualized program for Patient precaution education Edema - to improve, our physical therapists will perform initial evaluation of pt's status upon admi ssion and devise an individualized program for Elevation Training, and Lymphedema Therapy Poor balance - to improve, our physical therapists will perform initial evaluation of pt's status upo n admission and devise an individualized program for Balance Training Poor endurance - to improve, our physical therapists will perform initial evaluation of pt's status u blessing admission and devise an individualized program for Endurance Training Weakness - to improve, our physical therapists will perform initial evaluation of pt's status upon ad mission and devise an individualized program for Aquatic Therapy, Neuromuscular Reeducation, and Stre ngthening Achieving independence - to improve, our physical therapists will perform initial evaluation of pt's status upon admission and devise an individualized program for Community Reintegration Activities - Occupational Therapy ADL deficits - to improve, our occupation therapists will perform initial evaluation of pt's status u blessing admission and devise an individualized program for Bathing, Bed mobility, Community Reintegration , Cooking, Dressing, Eating, Fine Motor Skills, Grooming, Homemaking, Kitchen Mobility, Laundry, Arti ent Education, Safety Awareness, Splinting - Positioning, Transfers(Toilet, Tub, Shower), and Wheel C hair Management Cognitive deficits - to improve, our occupation therapists will perform initial evaluation of pt's st atus upon admission and devise an individualized program for Cognition - orientation Need for occasional caregiver - to improve, our occupation therapists will perform initial evaluation of pt's s tatus upon admission and devise an individualized program for Caregiver Training Weakness - to improve, our occupation therapists will perform initial evaluation of pt's status upon admission and devise an individualized program for Aquatic Therapy, Balance, Endurance, UE ROM, and U E strengthening MEDICAL PLAN: - Diet Type Start Regular - Diet - Liquid Texture Start Regular - Tube Feed Start N/A - Other See attached MAR (Medication Administration Record) - Diet - Solid Texture Regular - Shower shower DISCHARGE PLAN: - Estimated Length of Stay (days) 13. - Consensus on plan Discharge plan has been discussed with primary caregiver. Patient/Family is in agreement with the marilyn n. Primary caregiver is in agreement with the plan. - Patient/Family Goals Return home independently. - Planned Living Setting Upon Discharge Home, to live with Family/Relatives. Transitional Living. SIGNATURE PANEL: (CDT)
--- NOTE | 2021-12-22 17:21 | PAPE ---
POST ADMISSION PHYSICIAN EVALUATION PATIENT: [facility] MR# [id number] REFERRING DOCTOR SHINE SOOD MD EVALUATION DATE AND TIME 12/22/2021 13:22 (CDT) NAME YE HAMILTON DATE OF 1945 AGE 76 PHONE N# [id number] GENDER male EVALUATING PHYSICIAN Dr. Mikal Clancy M.D. ADMISSION DIAGNOSIS: Bilateral Pneumonia Bilateral Pneumonitis ONSET DATE 12/09/2021 POST-ADMISSION FUNCTIONAL/MEDICAL STATUS: - Bladder Same accident frequency: 7-Ind - No accidents in the past 7 days - Bowel Same accident frequency: 7-Ind - No accidents in the past 7 days - Walking Same score based on distance walked: 0(N/A) Same score based on distance walked: 1(<=50ft) - Wheelchair Same score based on distance traveled: 0(N/A) STATUS CHANGE EVALUATION: No change in Functional or Medical Status is identified compared with Pre-Admission screening. PATIENT NEEDS CLOSE MEDICAL SUPERVISION BY A REHABILITATION PHYSICIAN FOR: Coordination of Treatment Team Wound Care Pain Management Medical and Co-Morbidity Management DVT Management Bowel and Bladder Management PATIENT REQUIRES 24X7 REHAB NURSING FOR MEDICAL AND FUNCTIONAL MGT. OF THE FOLLOWING DEFICITS: Disease Management Medication Management Patient requires 24x7 Rehabilitation Nursing for: Pain Issues, Identifying and preventing risk factor s, Monitoring and reporting current medical conditions, Assisting with ambulation and transfer, Oscar ting with all ADL-s, Teaching patients about disease process and medications, Family teaching, Provid ing safe environment, Bowel and Bladder Issues, Skin Integrity, and Medication Management Patient/Family Education Providing Safe Environment Skin Integrity PATIENT REQUIRES INTENSIVE, COORDINATED INTERDISCIPLINARY APPROACH TO REHAB: Arranging Home Equipment/Services Discharge Planning Family Intervention/Training Patient needs Dietary and Nutrition Services for: Adequate Nutrition, Nutritional Supplements, and Nu tritional Education Patient needs Wedding Planner and/or Case Management for: Discharge Planning, Arranging Home Equipmen t or Services, and Family Interventions Wedding Planner/Case Management LIST OF IDENTIFIED AND POTENTIAL PROBLEMS: Alteration in leisure activities Bladder, Incontinence Bowel, Incontinence Infection, Actual or Potential Mobility Impaired Pain, Alteration in Comfort Self Care Deficit Skin Integrity, Actual or Potential Urinary Tract Infection (UTI), Actual or Potential RISK FOR COMPLICATIONS - Weakness Strengthening exercises to be performed. Regular therapeutic activity and exercise. - Cardiac monitoring heart rate/signs and symptoms for cardiac distress. medication management by physician. - Skin Breakdown Nursing will assess skin daily using assessment tool and will place on Skin Breakdown Precautions as Indicated per protocol. - Malnutrition Progress and monitor response to tube feeding to ensure adequate nutrition. - Respiratory Failure pt presenting with pneumonia and bilateral pneumonitis. Monitor patient's vitals and provide suppleme ntal O2 if warranted. Educate patient on and encourage use of incentive spirometry. - Falls Educated pt on fall prevention strategies to reduce/eliminate fall risk. pt is high risk for falls du e to significant weakness. Monitor and treat orthostatic hypotension. - Pain Educate patient on pain management strategies. Clinical staff will assess patient's pain level every shift per protocol to monitor for pain management effectiveness. INTERVENTIONS - A-Fib Vitals will be monitored regularly and medications administered as indicated by Physician. - Hypertension Blood pressure will be monitored regularly and medications administer per MD to manage effective bloo d pressure. - Pancytopenia Monitor lab values regularly and treat medically as indicated by physician. - Pneumonia Interval Chest X-Rays as needed. pt will be instructed on use of and be encouraged to use incentive s pirometry. Regular OOB activity and exercise to reduced risk for progression of condition. patient combs s been receiving 2 antibiotics to address this. - Orthostatic Hypotension Regularly assess standing blood pressures. Manage condition medically as indicated by physician. Use of compression stockings and abdominal binder as indicated. Monitor level of hydration and ensure zak quate fluid consumption. - Malnutrition pt has been not tolerating tube feeds well. Progress and monitor response to tube feeding to ensure a dequate nutrition. - Weakness Daily therapy services to enhance patient's functional strength and abilities. - Thrombocytopenia Regularly monitor lab values and transfuse platelets when needed. - COPD Educate pt on use of incentive spirometer and deep breathing exercises. Monitory O2 saturation and ot her vitals. PATIENT COULD BE AT RISK FOR COMPLICATIONS FROM ADVERSE MEDICAL CONDITIONS DUE TO HIS/HER COMORBIDITI ES AND THE RIGORS OF THE INTENSIVE REHABILLITATION PROGRAM. METHODS OR INTERVENTIONS TO AVOID COMPLIC ATIONS INCLUDE: - Deep Vein Thrombosis (DVT) Prophylaxis therapy for prevention . Sequential Compression Device (SCD). TE D Roberto. - Bleeding Assess lab values and manage abnormalities. Nursing to teach precautions for anti-coagulation therapy . Wound to be assessed every shift. - Infection Clinical staff to assess and manage the signs and symptoms of infection including fever, redness, war mth, etc. - Urinary Tract Infection - Falls Patient will be evaluated for Fall Precautions and will be placed on Fall Precautions as indicated pe r protocol. - Skin Breakdown Nursing will assess skin daily using assessment tool and will place on Skin Breakdown Precautions as indicated per protocol. - Pain Clinical staff may employ non-medication methods such as massage, distraction, decrease stimulus, etc . as needed. Clinical staff will assess patient's pain level every shift per protocol to assess and e nsure pain management effectiveness. Medications will be given and the pain level re-assessed. PRELIMINARY PLAN OF CARE: - Physical Therapy Patient needs Physical Therapy for a daily minimum of 1.5 hours at least 5 out of 7 days, to improve: Mobility, Strengthening, Transfers, Stretching, ROM, Endurance, Ability to manage stairs, Gait, and Balance. - Speech Therapy Patient needs Speech Therapy for a daily minimum of 0.5 hours at least 5 out of 7 days, to improve: S wallowing, Cognition, Language Skills, and Compensatory Strategies. - Rehabilitation Nursing Patient requires 24x7 Rehabilitation Nursing for: Pain Issues, Identifying and preventing risk factor s, Monitoring and reporting current medical conditions, Assisting with ambulation and transfer, Oscar ting with all ADL-s, Teaching patients about disease process and medications, Family teaching, Provid ing safe environment, Bowel and Bladder Issues, Skin Integrity, and Medication Management. Patient needs Wedding Planner and/or Case Management for: Discharge Planning, Arranging Home Equipmen t or Services, and Family Interventions. - Dietary and Nutrition Services Patient needs Dietary and Nutrition Services for: Adequate Nutrition, Nutritional Supplements, and Nu tritional Education. - Occupational Therapy Patient needs Occupational Therapy for a daily minimum of 1.5 hours at least 5 out of 7 days, to impr ove Activities of Daily Living, including: Eating, Grooming, Bathing, Dressing, Toileting, Toilet Tra nsfers, Community Reintegration, Higher functional activities, Adaptive Equipment, Splinting, Househo ld Tasks, and Other activities as determined. QI SCORES: - Self-Care A. Eating 03-Partial/moderate assistance B. Oral hygiene 02-Substantial/maximal assistance C. Toileting hygiene 02-Substantial/maximal assistance E. Shower/bathe self 02-Substantial/maximal assistance F. Upper body dressing 02-Substantial/maximal assistance G. Lower body dressing 02-Substantial/maximal assistance H. Putting on/taking off footwear 88-Not attempted due to medical condition or safety concerns - Mobility A. Roll left and right 03-Partial/moderate assistance B. Sit to lying 03-Partial/moderate assistance C. Lying to sitting on side of bed 03-Partial/moderate assistance D. Sit to stand 02-Substantial/maximal assistance E. Chair/[id number] transfer 02-Substantial/maximal assistance F. Toilet transfer 02-Substantial/maximal assistance G. Car transfer 88-Not attempted due to medical condition or safety concerns I. Walk 10 feet 88-Not attempted due to medical condition or safety concerns J. Walk 50 feet with two turns 88-Not attempted due to medical condition or safety concerns K. Walk 150 feet 88-Not attempted due to medical condition or safety concerns L. Walking 10 feet on uneven surfaces 88-Not attempted due to medical condition or safety concerns M. 1 step (curb) 88-Not attempted due to medical condition or safety concerns N. 4 steps 88-Not attempted due to medical condition or safety concerns O. 12 steps 88-Not attempted due to medical condition or safety concerns P. Picking up object 88-Not attempted due to medical condition or safety concerns R. Wheel 50 feet with two turns 88-Not attempted due to medical condition or safety concerns S. Wheel 150 feet 88-Not attempted due to medical condition or safety concerns - Bladder and Bowel Bladder continence Bowel continence - Endurance Fair - Balance Poor - Safety Awareness Fair POTENTIAL FUNCTIONAL GOALS FOR PATIENT TO ACHIEVE BY DISCHARGE: - Safety Precaution Patient will remain free from falls or injury at time of discharge. - Bed Mobility Patient will perform bed mobility at 4-Klaus level of assistance. - Transfers Patient will complete transfers from bed to chair at 4-Klaus level of assistance. - Mobility Patient will ambulate 150 ft with 4-Klaus level of assistance with RW. PATIENT REHAB POTENTIAL Mumtaz HAMILTON is able and expected to receive 3 hours of individualized therapy daily on at least 5 of every 7 days Mumtaz HAMILTON's prognosis for significant practical improvement within a reasonable period of time appe ars Good Expected level of measurable improvement will be of a practical value to Mumtaz HAMILTON's functional cap acity or adaptations to impairments Has a viable Discharge Plan Medically appropriate; condition is sufficiently stable to participate in intensive rehab program DISCHARGE PLAN: - Estimated Length of Stay (days) 13. - Consensus on plan Discharge plan has been discussed with primary caregiver. Patient/Family is in agreement with the marilyn n. Primary caregiver is in agreement with the plan. - Patient/Family Goals Return home independently. - Planned Living Setting Upon Discharge Home, to live with Family/Relatives. Transitional Living. CONCLUSION ON REHABILITATION NECESSITY: I have evaluated patient's pre-admission functional status and, comparing it to the patient's post-ad mission functional status now, I conclude that the pre-admission assessment was accurate. Patient's c ondition on admission supports the medical necessity of admission to IRF. It is safe to proceed with patient's therapy program. SIGNATURE PANEL: (CDT)
--- NOTE | 2021-12-22 20:22 | RAD REPORT ---
EXAM DESCRIPTION: RAD - Chest Single View - 12/22/2021 8:11 pm CLINICAL HISTORY: hx of pnuemonitis COMPARISON: No comparisons FINDINGS: Lines: None. Lungs: No evidence of edema or pneumonia. Calcified nodule in the right upper lobe. Pleural: No significant pleural effusions or pneumothorax. Cardiac: The heart size is within normal limits. Bones: No acute fractures. Other: IMPRESSION: No acute cardiopulmonary disease.
[2021-12-22] MEDS: FAMOTIDINE 20 MG TAB FT SCH (20:25)
[2021-12-22] MEDS: DOXAZOSIN 2 MG TAB PO SCH (20:25)
[2021-12-22] MEDS: ATORVASTATIN 40 MG TAB FT SCH (20:26)
[2021-12-22] MEDS: clonazePAM 0.5 MG TAB FT SCH (20:26)
[2021-12-22] MEDS: MELATONIN 5 MG TABLET PO PRN (20:50)
[2021-12-23] MEDS: JEVITY 1.5 CAL LIQUID 1,000 ML BOT FT SCH ×5 (07:30→20:34)
[2021-12-23] MEDS: FLUDROCORTISONE 0.1 MG TAB FT SCH (07:41)
[2021-12-23] MEDS: APIXABAN 2.5 MG TABLET FT SCH ×2 (07:41→20:32)
[2021-12-23] MEDS: SODIUM CHLORIDE 1 GM TAB FT SCH ×2 (07:41→16:40)
[2021-12-23] MEDS: CRANBERRY FRUIT EXTRACT 400 MG CAP FT SCH ×2 (07:41→20:34)
[2021-12-23] MEDS: DIGOXIN 0.25 MG TABLET FT SCH (07:41)
[2021-12-23] MEDS: HYDROCODONE/APAP 5/325 MG TAB FT PRN ×2 (07:41→20:32)
[2021-12-23] MEDS: clonazePAM 0.5 MG TAB FT SCH (07:42)
[2021-12-23] MEDS: MAGIC MOUTHWASH 180 ML BTL PO PRN ×2 (07:50→20:54)
[2021-12-23] MEDS ORDERED: TAMSULOSIN 0.4 MG SR CAP FT SCH (08:00)
[2021-12-23] MEDS: ZINC OXIDE 20% OINTMENT 60gm TOP SCH ×2 (09:00→14:00)
[2021-12-23] MEDS: ACETAMINOPHEN 500 MG TAB FT PRN (11:32)
[2021-12-23] MEDS: TBO-FILGRASTIM 480 MCG/0.8 ML SYR SQ SCH ×2 (16:40→17:00)
--- NOTE | 2021-12-23 17:52 | R.PN ---
PROGRESS NOTES ENCOUNTER DATE AND TIME: 12/23/2021 17:17 (CDT) NAME YE HAMILTON DATE OF : 1945 DATE OF ADMISSION: 12/21/2021 15:21 (CDT) Bilateral PneumoniaBilateral PneumonitisMetastatic throat cancer (C79.9), dyarthria, dysphagia, left lower extremity weakness.CHIEF COMPLAINT: Metastatic throat cancer, severe dysphagia, debility, left lower extremity weakness, SIADH SUBJECTIVE: Pt denied any depression. Pt denied any Shortness of Breath. WBCj 7.4, Hgb 8.6, band neutrophils 22, Na 135, prealbumin 14.2, covid-19 negative Ambulated total of 535' with CGA using a rolling walker. Self propelled wheelchair 500' with standby assistance. He is 2 and 1/2 weeks out from much needed radiation 5 days per week for throat cancer. That is being worked out with radiation oncologist Dr. Isaac Winter. VITAL SIGNS Temperature: 97.0 F SBP/DBP: 174/74 Pulse: 76 Resp: 16 MEDICATION ALLERGIES: No Known Drug Allergies (NKDA) ENVIRONMENTAL ALLERGIES: - Substance Allergies None Known - Other Allergies None Known NURSING: - Shower allowing shower ACTIVITIES OOB only with supervision THERAPIES: - Dietary and Nutrition Adequate Nutrition. Nutritional Education. Nutritional Supplements. Evaluate and Treat. - Occupational Therapy Cognitive Retraining. Patient needs Occupational Therapy for a daily minimum of 1.5 hours at least 5 out of 7 days, to improve Activities of Daily Living, including: Eating, Grooming, Bathing, Dressing, Toileting, Toilet Transfers, Community Reintegration, Higher functional activities, Adaptive Equipme nt, Splinting, Household Tasks, and Other activities as determined. ADL Training. Safety Awareness. H ousehold Tasks. Evaluate and Treat. Patient/Family Education. UE Strengthening. Visual Perceptual Tra ining. - Speech Therapy Cognitive Training. Expressive Language Skills. Memory Strategies. Patient needs Speech Therapy for a daily minimum of 1.5 hours at least 5 out of 7 days, to improve: Swallowing, Cognition, Language Ski lls, and Compensatory Strategies. Receptive Language Skills. Speech Intelligibility Training. Evaluat e and Treat. - Physical Therapy Patient needs Physical Therapy for a daily minimum of 1.5 hours at least 5 out of 7 days, to improve: Mobility, Strengthening, Transfers, Stretching, ROM, Endurance, Ability to manage stairs, Gait, and Balance. Balance Training. Evaluate and Treat. Gait Training. Safety Awareness. LE Strengthening. Tra nsfer Training. Mobility Training. PHYSICAL EXAM - Gen Alert and awake Lying in bed No apparent distress Oriented to: person, time, and place - Skin No skin breakdown. Normacephalic - Eyes No abnormalities - ENMT Severe dysphagia and dysarthria - Neck No pain - CVS RRR - Chest No abnormalities - Resp No wheezing - Abd Soft - GI Non distended Deferred - No abnormalities - Ext No significant edema - MSK 4+/5 weakness in left lower extremity - Neuro 4/5 strength left lower extremity. - Psych No abnormalities ASSESSMENT: Pt. 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 was independent/mod-I in Locomotion, Safety Aw areness, and Social Cognition; and he had good Transfers Control, Self-Care, Sphincter Control, Commu nication, and Endurance.Currently, he has deficits of Locomotion, Safety Awareness, Social Cognition, Balance, Sphincter Control, Self-Care, Communication, Endurance, and Transfers Control.Pt. is now re ferred to [facility] for acute in-patient rehabilitation in order to maximize patient's functional independence in activities of daily living, strength, ROM, and mobility.- Rehab Goal Patient has realistic goal of being discharged at assistance level 7-Ind to reside at Home with Fami ly/Relatives. MDM/PLAN: - Balance for Weakness - Bed mobility for ADL deficits - Lymphedema Therapy for Edema - Physical Therapy Gait dysfunction - to improve, our physical therapists will perform initial evaluation of pt's status upon admission and devise an individualized program for Gait Training, and Wheel Chair mobility Inability to transfer - to improve, our physical therapists will perform initial evaluation of pt's status upon admission and devise an individualized program for Bed mobility Need for home safety evaluation - to improve, our physical therapists will perform initial evaluatio n of pt's status upon admission and devise an individualized program for Home Evaluation Need in caregiver upon discharge - to improve, our physical therapists will perform initial evaluatio n of pt's status upon admission and devise an individualized program for Caregiver Training New precaution - to improve, our physical therapists will perform initial evaluation of pt's status u blessing admission and devise an individualized program for Patient precaution education Edema - to improve, our physical therapists will perform initial evaluation of pt's status upon admis harvinder and devise an individualized program for Elevation Training, and Lymphedema Therapy Poor balance - to improve, our physical therapists will perform initial evaluation of pt's status up on admission and devise an individualized program for Balance Training Poor endurance - to improve, our physical therapists will perform initial evaluation of pt's status upon admission and devise an individualized program for Endurance Training Weakness - to improve, our physical therapists will perform initial evaluation of pt's status upon ad mission and devise an individualized program for Aquatic Therapy, Neuromuscular Reeducation, and Stre ngthening Achieving independence - to improve, our physical therapists will perform initial evaluation of pt's status upon admission and devise an individualized program for Community Reintegration Activities - Occupational Therapy ADL deficits - to improve, our occupation therapists will perform initial evaluation of pt's status upon admission and devise an individualized program for Bathing, Bed mobility, Community Reintegratio n, Cooking, Dressing, Eating, Fine Motor Skills, Grooming, Homemaking, Kitchen Mobility, Laundry, Pat ient Education, Safety Awareness, Splinting - Positioning, Transfers(Toilet, Tub, Shower), and Wheel Chair Management Cognitive deficits - to improve, our occupation therapists will perform initial evaluation of pt's s tatus upon admission and devise an individualized program for Cognition - orientation Need for home care liaison - to improve, our occupation therapists will perform initial evaluation of pt's s tatus upon admission and devise an individualized program for Caregiver Training Weakness - to improve, our occupation therapists will perform initial evaluation of pt's status upon admission and devise an individualized program for Aquatic Therapy, Balance, Endurance, UE ROM, and U E strengthening - Other See attached MAR (Medication Administration Record) - Diet Type Regular - Diet - Liquid Texture Regular - Tube Feed N/A - Diet - Solid Texture Regular - Shower allowing shower FUNCTIONAL STATUS: UPDATED AT WEEKLY TEAM CONFERENCE - Bladder Same accident frequency: 7-Ind - No accidents in the past 7 days - Bowel Same accident frequency: 7-Ind - No accidents in the past 7 days - Walking Same score based on distance walked: 0(N/A) Same score based on distance walked: 1(<=50ft) - Wheelchair Same score based on distance traveled: 0(N/A) FUNCTIONAL STATUS: - Self-Care A. Eating Dep B. Grooming sup C. Bathing modA D. Dressing - Upper Klaus E. Dressing - Lower modA F. Toileting Marbella - Sphincter Control G. Bladder control Marbella H. Bowel control Marbella - Transfers Control I. Bed/Chair/Wheelchair Klaus J. Toilet Klaus K. Tub/Shower modA - Locomotion L. Walk/Wheelchair (B) Klaus M. Stairs maxA - Communication N. Comprehension (B) Marbella O. Expression (B) Marbella - Social Cognition P. Social Interaction Marbella Q. Problem Solving Marbella R. Memory Marbella - Endurance Good - Balance Fair - Safety Awareness Good QI SCORES: - Self-Care A. Eating 03-Partial/moderate assistance B. Oral hygiene 02-Substantial/maximal assistance C. Toileting hygiene 02-Substantial/maximal assistance E. Shower/bathe self 02-Substantial/maximal assistance F. Upper body dressing 02-Substantial/maximal assistance G. Lower body dressing 02-Substantial/maximal assistance H. Putting on/taking off footwear 88-Not attempted due to medical condition or safety concerns - Mobility A. Roll left and right 03-Partial/moderate assistance B. Sit to lying 03-Partial/moderate assistance C. Lying to sitting on side of bed 03-Partial/moderate assistance D. Sit to stand 02-Substantial/maximal assistance E. Chair/[id number] transfer 02-Substantial/maximal assistance F. Toilet transfer 02-Substantial/maximal assistance G. Car transfer 88-Not attempted due to medical condition or safety concerns I. Walk 10 feet 88-Not attempted due to medical condition or safety concerns J. Walk 50 feet with two turns 88-Not attempted due to medical condition or safety concerns K. Walk 150 feet 88-Not attempted due to medical condition or safety concerns L. Walking 10 feet on uneven surfaces 88-Not attempted due to medical condition or safety concerns M. 1 step (curb) 88-Not attempted due to medical condition or safety concerns N. 4 steps 88-Not attempted due to medical condition or safety concerns O. 12 steps 88-Not attempted due to medical condition or safety concerns P. Picking up object 88-Not attempted due to medical condition or safety concerns R. Wheel 50 feet with two turns 88-Not attempted due to medical condition or safety concerns S. Wheel 150 feet 88-Not attempted due to medical condition or safety concerns - Bladder and Bowel Bladder continence Bowel continence - Endurance Fair - Balance Poor - Safety Awareness Fair [facility]. DEFICITS: Self-Care, Mobility, Endurance, Balance, and Safety Awareness SIGNATURE PANEL: (CDT)
[2021-12-23] MEDS: FAMOTIDINE 20 MG TAB FT SCH (20:31)
[2021-12-23] MEDS: DOXAZOSIN 2 MG TAB PO SCH (20:31)
[2021-12-23] MEDS: ATORVASTATIN 40 MG TAB FT SCH (20:32)
[2021-12-23] MEDS: lisinopriL 5 MG TAB PO SCH (20:33)
[2021-12-23] MEDS: clonazePAM 0.5 MG TAB FT PRN (20:33)
[2021-12-23] MEDS: MELATONIN 5 MG TABLET PO PRN (20:33)
[2021-12-23] MEDS: LACTULOSE 20 GM/30 ML UCUP FT PRN (20:55)
[2021-12-24] MEDS: FLUDROCORTISONE 0.1 MG TAB FT SCH (07:36)
[2021-12-24] MEDS: DIGOXIN 0.25 MG TABLET FT SCH (07:36)
[2021-12-24] MEDS: CRANBERRY FRUIT EXTRACT 400 MG CAP FT SCH ×2 (07:36→21:12)
[2021-12-24] MEDS: SODIUM CHLORIDE 1 GM TAB FT SCH ×2 (07:36→17:39)
[2021-12-24] MEDS: lisinopriL 5 MG TAB PO SCH ×2 (07:36→21:12)
[2021-12-24] MEDS: JEVITY 1.5 CAL LIQUID 1,000 ML BOT FT SCH ×5 (07:37→21:16)
[2021-12-24] MEDS: APIXABAN 2.5 MG TABLET FT SCH ×2 (08:11→21:00)
[2021-12-24] MEDS: MAGIC MOUTHWASH 180 ML BTL PO PRN ×2 (08:12→21:11)
[2021-12-24] MEDS: ACETAMINOPHEN 500 MG TAB FT PRN ×2 (09:39→15:54)
[2021-12-24] MEDS: NYSTATIN 500,000 UNIT/5 ML UDC PO SCH ×2 (13:45→21:16)
[2021-12-24] MEDS: TBO-FILGRASTIM 480 MCG/0.8 ML SYR SQ SCH (17:00)
--- NOTE | 2021-12-24 17:16 | R.PN ---
PROGRESS NOTES ENCOUNTER DATE AND TIME: 12/24/2021 13:56 (CDT) NAME YE HAMILTON DATE OF : 1945 DATE OF ADMISSION: 12/21/2021 15:21 (CDT) Bilateral PneumoniaBilateral PneumonitisMetastatic throat cancer (C79.9), dyarthria, dysphagia, left lower extremity weakness.CHIEF COMPLAINT: Metastatic throat cancer, severe dysphagia, debility, left lower extremity weakness, SIADH SUBJECTIVE: Pt denied any depression. Pt denied any Shortness of Breath. WBCj 7.4, Hgb 8.6, band neutrophils 22, Na 135, prealbumin 14.2, covid-19 negative He is 2 and 1/2 weeks out from much needed radiation 5 days per week for throat cancer. That is being worked out with radiation oncologist Dr. Isaac Winter. Bed mobility done with modified independence. Dysphagia training done with supervision. 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 His left lower extremity is being addressed with directe d exercises with evaluation of an AFO as needed. VITAL SIGNS Temperature: 97.5 F SBP/DBP: 163/72 Pulse: 76 Resp: 15 MEDICATION ALLERGIES: No Known Drug Allergies (NKDA) ENVIRONMENTAL ALLERGIES: - Substance Allergies None Known - Other Allergies None Known NURSING: - Shower allowing shower ACTIVITIES OOB only with supervision THERAPIES: - Dietary and Nutrition Adequate Nutrition. Nutritional Education. Nutritional Supplements. Evaluate and Treat. - Occupational Therapy Cognitive Retraining. Patient needs Occupational Therapy for a daily minimum of 1.5 hours at least 5 out of 7 days, to improve Activities of Daily Living, including: Eating, Grooming, Bathing, Dressing, Toileting, Toilet Transfers, Community Reintegration, Higher functional activities, Adaptive Equipme nt, Splinting, Household Tasks, and Other activities as determined. ADL Training. Safety Awareness. H ousehold Tasks. Evaluate and Treat. Patient/Family Education. UE Strengthening. Visual Perceptual Tra ining. - Speech Therapy Cognitive Training. Expressive Language Skills. Memory Strategies. Patient needs Speech Therapy for a daily minimum of 1.5 hours at least 5 out of 7 days, to improve: Swallowing, Cognition, Language Ski lls, and Compensatory Strategies. Receptive Language Skills. Speech Intelligibility Training. Evaluat e and Treat. - Physical Therapy Patient needs Physical Therapy for a daily minimum of 1.5 hours at least 5 out of 7 days, to improve: Mobility, Strengthening, Transfers, Stretching, ROM, Endurance, Ability to manage stairs, Gait, and Balance. Balance Training. Evaluate and Treat. Gait Training. Safety Awareness. LE Strengthening. Tra nsfer Training. Mobility Training. PHYSICAL EXAM - Gen Alert and awake Lying in bed No apparent distress Oriented to: person, time, and place - Skin No skin breakdown. Normacephalic - Eyes No abnormalities - ENMT Severe dysphagia and dysarthria - Neck No pain - CVS RRR - Chest No abnormalities - Resp No wheezing - Abd Soft - GI Non distended Deferred - No abnormalities - Ext No significant edema - MSK 4+/5 weakness in left lower extremity - Neuro 4/5 strength left lower extremity. - Psych No abnormalities ASSESSMENT: Pt. is a 76 yo Right-handed male.On 12/09/2021 he was admitted to [facility] with diagnosis B ilateral Pneumonia.His impairment category is Medically Complex Conditions 17 - Respiratory Disorder s - Non-ventilator Dependent (17.52).Pre-morbidly, Pt. was independent/mod-I in Locomotion, Safety Aw areness, and Social Cognition; and he had good Transfers Control, Self-Care, Sphincter Control, Commu nication, and Endurance.Currently, he has deficits of Locomotion, Safety Awareness, Social Cognition, Balance, Sphincter Control, Self-Care, Communication, Endurance, and Transfers Control.Pt. is now re ferred to [facility] for acute in-patient rehabilitation in order to maximize patient's functional independence in activities of daily living, strength, ROM, and mobility.- Rehab Goal Patient has realistic goal of being discharged at assistance level 7-Ind to reside at Home with Fami ly/Relatives. MDM/PLAN: - Physical Therapy Gait dysfunction - to improve, our physical therapists will perform initial evaluation of pt's statu s upon admission and devise an individualized program for Gait Training, and Wheel Chair mobility Inability to transfer - to improve, our physical therapists will perform initial evaluation of pt's status upon admission and devise an individualized program for Bed mobility Need for home safety evaluation - to improve, our physical therapists will perform initial evaluatio n of pt's status upon admission and devise an individualized program for Home Evaluation Need in caregiver upon discharge - to improve, our physical therapists will perform initial evaluati on of pt's status upon admission and devise an individualized program for Caregiver Training New precaution - to improve, our physical therapists will perform initial evaluation of pt's status upon admission and devise an individualized program for Patient precaution education Edema - to improve, our physical therapists will perform initial evaluation of pt's status upon admis harvinder and devise an individualized program for Elevation Training, and Lymphedema Therapy Poor balance - to improve, our physical therapists will perform initial evaluation of pt's status up on admission and devise an individualized program for Balance Training Poor endurance - to improve, our physical therapists will perform initial evaluation of pt's status upon admission and devise an individualized program for Endurance Training Weakness - to improve, our physical therapists will perform initial evaluation of pt's status upon a dmission and devise an individualized program for Aquatic Therapy, Neuromuscular Reeducation, and Str engthening Achieving independence - to improve, our physical therapists will perform initial evaluation of pt's status upon admission and devise an individualized program for Community Reintegration Activities - Occupational Therapy ADL deficits - to improve, our occupation therapists will perform initial evaluation of pt's status upon admission and devise an individualized program for Bathing, Bed mobility, Community Reintegratio n, Cooking, Dressing, Eating, Fine Motor Skills, Grooming, Homemaking, Kitchen Mobility, Laundry, Pat ient Education, Safety Awareness, Splinting - Positioning, Transfers(Toilet, Tub, Shower), and Wheel Chair Management Cognitive deficits - to improve, our occupation therapists will perform initial evaluation of pt's s tatus upon admission and devise an individualized program for Cognition - orientation Need for hemodialysis patient care specialist - to improve, our occupation therapists will perform initial evaluation of pt's status upon admission and devise an individualized program for Caregiver Training Weakness - to improve, our occupation therapists will perform initial evaluation of pt's status upon admission and devise an individualized program for Aquatic Therapy, Balance, Endurance, UE ROM, and UE strengthening - Other See attached MAR (Medication Administration Record) - Diet Type Continue Regular - Diet - Liquid Texture Continue Regular - Tube Feed Continue N/A - Diet - Solid Texture Continue Regular - Shower allowing shower FUNCTIONAL STATUS: UPDATED AT WEEKLY TEAM CONFERENCE - Bladder Same accident frequency: 7-Ind - No accidents in the past 7 days - Bowel Same accident frequency: 7-Ind - No accidents in the past 7 days - Walking Same score based on distance walked: 0(N/A) Same score based on distance walked: 1(<=50ft) - Wheelchair Same score based on distance traveled: 0(N/A) FUNCTIONAL STATUS: - Self-Care A. Eating Dep B. Grooming sup C. Bathing modA D. Dressing - Upper Klasu E. Dressing - Lower modA F. Toileting Marbella - Sphincter Control G. Bladder control Marbella H. Bowel control Marbella - Transfers Control I. Bed/Chair/Wheelchair Klaus J. Toilet Klaus K. Tub/Shower modA - Locomotion L. Walk/Wheelchair (B) Klaus M. Stairs maxA - Communication N. Comprehension (B) Marbella O. Expression (B) Marbella - Social Cognition P. Social Interaction Marbella Q. Problem Solving Marbella R. Memory Marbella - Endurance Good - Balance Fair - Safety Awareness Good QI SCORES: - Self-Care A. Eating 03-Partial/moderate assistance B. Oral hygiene 02-Substantial/maximal assistance C. Toileting hygiene 02-Substantial/maximal assistance E. Shower/bathe self 02-Substantial/maximal assistance F. Upper body dressing 02-Substantial/maximal assistance G. Lower body dressing 02-Substantial/maximal assistance H. Putting on/taking off footwear 88-Not attempted due to medical condition or safety concerns - Mobility A. Roll left and right 03-Partial/moderate assistance B. Sit to lying 03-Partial/moderate assistance C. Lying to sitting on side of bed 03-Partial/moderate assistance D. Sit to stand 02-Substantial/maximal assistance E. Chair/[id number] transfer 02-Substantial/maximal assistance F. Toilet transfer 02-Substantial/maximal assistance G. Car transfer 88-Not attempted due to medical condition or safety concerns I. Walk 10 feet 88-Not attempted due to medical condition or safety concerns J. Walk 50 feet with two turns 88-Not attempted due to medical condition or safety concerns K. Walk 150 feet 88-Not attempted due to medical condition or safety concerns L. Walking 10 feet on uneven surfaces 88-Not attempted due to medical condition or safety concerns M. 1 step (curb) 88-Not attempted due to medical condition or safety concerns N. 4 steps 88-Not attempted due to medical condition or safety concerns O. 12 steps 88-Not attempted due to medical condition or safety concerns P. Picking up object 88-Not attempted due to medical condition or safety concerns R. Wheel 50 feet with two turns 88-Not attempted due to medical condition or safety concerns S. Wheel 150 feet 88-Not attempted due to medical condition or safety concerns - Bladder and Bowel Bladder continence Bowel continence - Endurance Fair - Balance Poor - Safety Awareness Fair CURRENT [facility]. DEFICITS: Self-Care, Mobility, Endurance, Balance, and Safety Awareness SIGNATURE PANEL: (CDT)
[2021-12-24] MEDS: HYDROCODONE/APAP 5/325 MG TAB FT PRN (21:12)
[2021-12-24] MEDS: FAMOTIDINE 20 MG TAB FT SCH (21:12)
[2021-12-24] MEDS: ATORVASTATIN 40 MG TAB FT SCH (21:12)
[2021-12-24] MEDS: MELATONIN 5 MG TABLET PO PRN (21:13)
[2021-12-24] MEDS: clonazePAM 0.5 MG TAB FT PRN (21:13)
[2021-12-24] MEDS: DOXAZOSIN 2 MG TAB PO SCH (21:15)
[2021-12-25 04:47] LABS: Absolute Lymphocytes (CBC) 0.6 K/uL (0.7-4.9); Hematocrit 24.8 % (39.6-49.0); Lymphocytes % 9.8 % (15.3-44.8); MPV 8.2 fL (7.6-11.3); RBC Red Blood Cell Count 2.57 M/uL (4.33-5.43)
[2021-12-25 05:04] LABS: Albumin 2.3 g/dL (3.4-5.0); Magnesium 1.9 mg/dL (1.8-2.4); Potassium 4.3 mmol/L (3.5-5.1); Prealbumin 15.4 mg/dL (20-40)
[2021-12-25] MEDS: CRANBERRY FRUIT EXTRACT 400 MG CAP FT SCH ×2 (07:27→20:24)
[2021-12-25] MEDS: JEVITY 1.5 CAL LIQUID 1,000 ML BOT FT SCH ×5 (07:27→21:10)
[2021-12-25] MEDS: SODIUM CHLORIDE 1 GM TAB FT SCH ×2 (07:27→17:19)
[2021-12-25] MEDS: DIGOXIN 0.25 MG TABLET FT SCH (07:28)
[2021-12-25] MEDS: FLUDROCORTISONE 0.1 MG TAB FT SCH (07:28)
[2021-12-25] MEDS: NYSTATIN 500,000 UNIT/5 ML UDC PO SCH ×3 (07:28→20:24)
[2021-12-25] MEDS: APIXABAN 2.5 MG TABLET FT SCH ×2 (07:28→20:27)
[2021-12-25] MEDS: ACETAMINOPHEN 500 MG TAB FT PRN ×2 (07:38→14:32)
[2021-12-25] MEDS: MAGIC MOUTHWASH 180 ML BTL PO PRN ×2 (07:48→20:28)
[2021-12-25] MEDS: lisinopriL 5 MG TAB PO SCH (08:00)
[2021-12-25] MEDS ORDERED: lisinopriL 5 MG TAB PO SCH (13:25)
[2021-12-25] MEDS: FAMOTIDINE 20 MG TAB FT SCH (16:33)
--- NOTE | 2021-12-25 18:58 | R.PN ---
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 Pt denied any Shortness of Breath. WBC 6.0, Hgb 8.6, band neutrophils 22, Na 136, prealbumin 15.4, covid-19 negative He is 2 and 1/2 weeks out from much needed radiation 5 days per week for throat cancer. That has been worked out with radiation oncologist Dr. Isaac Winter. The patient with restart radiation and yoan motherapy next Wednesday. Bed mobility done with modified independence. Dysphagia training done with supervision. 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 His left lower extremity is being addressed with directe d exercises with evaluation of an AFO as needed. VITAL SIGNS Temperature: 97.2 F SBP/DBP: 153/71 Pulse: 74 Resp: 15 MEDICATION ALLERGIES: No Known Drug Allergies (NKDA) ENVIRONMENTAL ALLERGIES: - Substance Allergies None Known - Other Allergies None Known NURSING: - Shower allowing shower ACTIVITIES OOB only with supervision THERAPIES: - Dietary and Nutrition Adequate Nutrition. Nutritional Education. Nutritional Supplements. Evaluate and Treat. - Occupational Therapy Cognitive Retraining. Patient needs Occupational Therapy for a daily minimum of 1.5 hours at least 5 out of 7 days, to improve Activities of Daily Living, including: Eating, Grooming, Bathing, Dressing, Toileting, Toilet Transfers, Community Reintegration, Higher functional activities, Adaptive Equipme nt, Splinting, Household Tasks, and Other activities as determined. ADL Training. Safety Awareness. H ousehold Tasks. Evaluate and Treat. Patient/Family Education. UE Strengthening. Visual Perceptual Tra ining. - Speech Therapy Cognitive Training. Expressive Language Skills. Memory Strategies. Patient needs Speech Therapy for a daily minimum of 1.5 hours at least 5 out of 7 days, to improve: Swallowing, Cognition, Language Ski lls, and Compensatory Strategies. Receptive Language Skills. Speech Intelligibility Training. Evaluat e and Treat. - Physical Therapy Patient needs Physical Therapy for a daily minimum of 1.5 hours at least 5 out of 7 days, to improve: Mobility, Strengthening, Transfers, Stretching, ROM, Endurance, Ability to manage stairs, Gait, and Balance. Balance Training. Evaluate and Treat. Gait Training. Safety Awareness. LE Strengthening. Tra nsfer Training. Mobility Training. PHYSICAL EXAM - Gen Alert and awake Lying in bed No apparent distress Oriented to: person, time, and place - Skin No skin breakdown. Normacephalic - Eyes No abnormalities - ENMT Severe dysphagia and dysarthria - Neck No pain - CVS RRR - Chest No abnormalities - Resp No wheezing - Abd Soft - GI Non distended Deferred - No abnormalities - Ext No significant edema - MSK 4+/5 weakness in left lower extremity - Neuro 4/5 strength left lower extremity. - Psych No abnormalities ASSESSMENT: [12/24/2021 13:48 (CDT), by Dr. Mikal Clancy]His impairment category is Neoplasms (17.2).Pt. is a 76 yo Right-handed male.On 12/09/2021 he was admitted to [facility] with diagnosis Bilatera l Pneumonia and issues related to his ongoing tongue and throat metastatic cancer..Pre-morbidly, Pt. was independent/mod-I in Locomotion, Safety Awareness, and Social Cognition; and he had good Transfer s Control, Self-Care, Sphincter Control, Communication, and Endurance.Currently, he has deficits of L ocomotion, Safety Awareness, Social Cognition, Balance, Sphincter Control, Self-Care, Communication, Endurance, and Transfers Control.Pt. is now referred to [facility] for acute i n-patient rehabilitation in order to maximize patient's functional independence in activities of piotr y living, strength, ROM, and mobility.- Rehab Goal Patient has realistic goal of being discharged at assistance level 7-Ind to reside at Home with Fami ly/Relatives. MDM/PLAN: - Physical Therapy Gait dysfunction - to improve, our physical therapists will perform initial evaluation of pt's statu s upon admission and devise an individualized program for Gait Training, and Wheel Chair mobility Inability to transfer - to improve, our physical therapists will perform initial evaluation of pt's status upon admission and devise an individualized program for Bed mobility Need for home safety evaluation - to improve, our physical therapists will perform initial evaluatio n of pt's status upon admission and devise an individualized program for Home Evaluation Need in caregiver upon discharge - to improve, our physical therapists will perform initial evaluati on of pt's status upon admission and devise an individualized program for Caregiver Training New precaution - to improve, our physical therapists will perform initial evaluation of pt's status upon admission and devise an individualized program for Patient precaution education Edema - to improve, our physical therapists will perform initial evaluation of pt's status upon admi ssion and devise an individualized program for Elevation Training, and Lymphedema Therapy Poor balance - to improve, our physical therapists will perform initial evaluation of pt's status up on admission and devise an individualized program for Balance Training Poor endurance - to improve, our physical therapists will perform initial evaluation of pt's status upon admission and devise an individualized program for Endurance Training Weakness - to improve, our physical therapists will perform initial evaluation of pt's status upon a dmission and devise an individualized program for Aquatic Therapy, Neuromuscular Reeducation, and Str engthening Achieving independence - to improve, our physical therapists will perform initial evaluation of pt's status upon admission and devise an individualized program for Community Reintegration Activities - Occupational Therapy ADL deficits - to improve, our occupation therapists will perform initial evaluation of pt's status upon admission and devise an individualized program for Bathing, Bed mobility, Community Reintegratio n, Cooking, Dressing, Eating, Fine Motor Skills, Grooming, Homemaking, Kitchen Mobility, Laundry, Pat ient Education, Safety Awareness, Splinting - Positioning, Transfers(Toilet, Tub, Shower), and Wheel Chair Management Cognitive deficits - to improve, our occupation therapists will perform initial evaluation of pt's s tatus upon admission and devise an individualized program for Cognition - orientation Need for home care manager rn - to improve, our occupation therapists will perform initial evaluation of pt's status upon admission and devise an individualized program for Caregiver Training Weakness - to improve, our occupation therapists will perform initial evaluation of pt's status upon admission and devise an individualized program for Aquatic Therapy, Balance, Endurance, UE ROM, and UE strengthening - Other See attached MAR (Medication Administration Record) - Diet Type Continue Regular - Diet - Liquid Texture Continue Regular - Tube Feed Continue N/A - Diet - Solid Texture Continue Regular - Shower allowing shower FUNCTIONAL STATUS: UPDATED AT WEEKLY TEAM CONFERENCE - Bladder Same accident frequency: 7-Ind - No accidents in the past 7 days - Bowel Same accident frequency: 7-Ind - No accidents in the past 7 days - Walking Same score based on distance walked: 0(N/A) Same score based on distance walked: 1(<=50ft) - Wheelchair Same score based on distance traveled: 0(N/A) FUNCTIONAL STATUS: - Self-Care A. Eating Dep B. Grooming sup C. Bathing modA D. Dressing - Upper Klaus E. Dressing - Lower modA F. Toileting Marbella - Sphincter Control G. Bladder control Marbella H. Bowel control Marbella - Transfers Control I. Bed/Chair/Wheelchair Klaus J. Toilet Klaus K. Tub/Shower modA - Locomotion L. Walk/Wheelchair (B) Klaus M. Stairs maxA - Communication N. Comprehension (B) Marbella O. Expression (B) Marbella - Social Cognition P. Social Interaction Marbella Q. Problem Solving Marbella R. Memory Marbella - Endurance Good - Balance Fair - Safety Awareness Good QI SCORES: - Self-Care A. Eating 03-Partial/moderate assistance B. Oral hygiene 02-Substantial/maximal assistance C. Toileting hygiene 02-Substantial/maximal assistance E. Shower/bathe self 02-Substantial/maximal assistance F. Upper body dressing 02-Substantial/maximal assistance G. Lower body dressing 02-Substantial/maximal assistance H. Putting on/taking off footwear 88-Not attempted due to medical condition or safety concerns - Mobility A. Roll left and right 03-Partial/moderate assistance B. Sit to lying 03-Partial/moderate assistance C. Lying to sitting on side of bed 03-Partial/moderate assistance D. Sit to stand 02-Substantial/maximal assistance E. Chair/[id number] transfer 02-Substantial/maximal assistance F. Toilet transfer 02-Substantial/maximal assistance G. Car transfer 88-Not attempted due to medical condition or safety concerns I. Walk 10 feet 88-Not attempted due to medical condition or safety concerns J. Walk 50 feet with two turns 88-Not attempted due to medical condition or safety concerns K. Walk 150 feet 88-Not attempted due to medical condition or safety concerns L. Walking 10 feet on uneven surfaces 88-Not attempted due to medical condition or safety concerns M. 1 step (curb) 88-Not attempted due to medical condition or safety concerns N. 4 steps 88-Not attempted due to medical condition or safety concerns O. 12 steps 88-Not attempted due to medical condition or safety concerns P. Picking up object 88-Not attempted due to medical condition or safety concerns R. Wheel 50 feet with two turns 88-Not attempted due to medical condition or safety concerns S. Wheel 150 feet 88-Not attempted due to medical condition or safety concerns - Bladder and Bowel Bladder continence Bowel continence - Endurance Fair - Balance Poor - Safety Awareness Fair [facility]RENT [facility]. DEFICITS: Self-Care, Mobility, Endurance, Balance, and Safety Awareness SIGNATURE PANEL: (CDT)
[2021-12-25] MEDS ORDERED: MIDODRINE HCL 5 MG TABLET PO SCH (20:00)
[2021-12-25] MEDS: clonazePAM 0.5 MG TAB FT PRN (20:24)
[2021-12-25] MEDS: HYDROCODONE/APAP 5/325 MG TAB FT PRN (20:26)
[2021-12-25] MEDS: MIDODRINE HCL 5 MG TABLET PO SCH (20:26)
[2021-12-25] MEDS: DOXAZOSIN 2 MG TAB PO SCH (20:27)
[2021-12-25] MEDS: MELATONIN 5 MG TABLET PO PRN (20:27)
[2021-12-25] MEDS: ATORVASTATIN 40 MG TAB FT SCH (20:27)
--- NOTE | 2021-12-25 21:19 | P.PN ---
Date of Service: 12/25/21 Vital Signs Temp Pulse Resp BP Pulse Ox 97 F 77 18 165/70 H 98 12/25/21 07:02 12/25/21 20:27 12/25/21 20:26 12/25/21 20:27 12/25/21 20:26 Medications Acetaminophen (Acetaminophen 500 Mg Tab) 500 mg FT Q4HP PRN PRN Reason: Pain scale 2-4 (Mild) Last Admin: 12/25/21 14:32 Dose: 500 mg Documented by: Hydrocodone Bitart/Acetaminophen (Hydrocodone/Apap 5/325 Mg Tab) 1 tab FT Q6H PRN PRN Reason: Pain scale 5-7 (Moderate) Last Admin: 12/25/21 20:26 Dose: 1 tab Documented by: Apixaban (Apixaban 2.5 Mg Tablet) 2.5 mg FT BID JAMES Last Admin: 12/25/21 20:27 Dose: 2.5 mg Documented by: Atorvastatin Calcium (Atorvastatin 40 Mg Tab) 40 mg FT BEDTIME JAMES Last Admin: 12/25/21 20:27 Dose: 40 mg Documented by: Clonazepam (Clonazepam 0.5 Mg Tab) 0.5 mg FT BID PRN PRN Reason: ANXIETY Last Admin: 12/25/21 20:24 Dose: 0.5 mg Documented by: Clonidine HCl (Clonidine Hcl 0.1 Mg Tab) 0.1 mg FT Q4H PRN PRN Reason: for sbp >170 Last Admin: 12/21/21 19:44 Dose: 0.1 mg Documented by: Digoxin (Digoxin 0.25 Mg Tablet) 0.25 mg FT DAILY JAMES Last Admin: 12/25/21 07:28 Dose: 0.25 mg Documented by: Diphenhydr/Magaldrate/Simeth/Lidoca (Magic Mouthwash 180 Ml Btl) 5 ml PO Q6H PRN PRN Reason: SORE THROAT Last Admin: 12/25/21 20:28 Dose: 5 ml Documented by: Doxazosin Mesylate (Doxazosin 2 Mg Tab) 1 mg PO BEDTIME JAMES Last Admin: 12/25/21 20:27 Dose: 1 mg Documented by: Famotidine (Famotidine 20 Mg Tab) 20 mg FT 2100 JAMES; Protocol Last Admin: 12/25/21 16:33 Dose: 20 mg Documented by: Ferrous Sulfate (Ferrous Sulfate 220 Mg/5 Ml Elixir) 220 mg PO BIDWM [facility] Last Admin: 12/25/21 17:19 Dose: 220 mg Documented by: Fludrocortisone Acetate (Fludrocortisone 0.1 Mg Tab) 0.1 mg FT DAILY [facility] Last Admin: 12/25/21 07:28 Dose: 0.1 mg Documented by: Ipratropium [place] (Ipratropium Brom 0.5mg/2.5ml) 0.5 mg NEB [id number] PRN PRN Reason: SHORTNESS OF BREATH Lactulose (Lactulose 20 Gm/30 Ml Ucup) 20 gm FT Q6H PRN PRN Reason: CONSTIPATION Last Admin: 12/23/21 20:55 Dose: 20 gm Documented by: Lisinopril (Lisinopril 5 Mg Tab) 2.5 mg PO BID [facility] Last Admin: 12/25/21 20:25 Dose: 2.5 mg Documented by: Magnesium Hydroxide (Magnesium Hydroxide 8% 30 Ml) 30 ml FT BID PRN PRN Reason: CONSTIPATION Meclizine HCl (Meclizine Hcl 12.5 Mg Tab) 25 mg FT Q6H PRN PRN Reason: DIZZINESS Last Admin: 12/24/21 09:27 Dose: 25 mg Documented by: Melatonin (Melatonin 5 Mg Tablet) 10 mg PO BEDTIME PRN PRN PRN Reason: INSOMNIA Last Admin: 12/25/21 20:27 Dose: 10 mg Documented by: Midodrine (Midodrine Hcl 5 Mg Tablet) 5 mg PO BID [facility] Last Admin: 12/25/21 20:26 Dose: 5 mg Documented by: Nystatin (Nystatin 500,000 Unit/5 Ml Udc) 500,000 unit PO TID [facility] Last Admin: 12/25/21 20:24 Dose: 500,000 unit Documented by: Ondansetron HCl (Ondansetron 4 Mg (Odt) Tab) 4 mg FT Q4H PRN PRN Reason: NAUSEA / VOMITING Last Admin: 12/24/21 09:27 Dose: 4 mg Documented by: Sodium Chloride (Sodium Chloride 1 Gm Tab) 1 gm FT BIDWM [facility] Last Admin: 12/25/21 17:19 Dose: 1 gm Documented by: Lab Results (last 24 hrs) 12/25/21 04:13: Sodium 136, Potassium 4.3, Chloride 103, Carbon Dioxide 31, Anion Gap 6.3, BUN 16, Creatinine 0.77, Est GFR (CKD-EPI) 92, Glucose 85, Calcium 8.1 L, Magnesium 1.9, Albumin 2.3 L, Prealbumin 15.4 L 12/25/21 04:13: WBC 6.0, RBC 2.57 L, Hgb 8.6 L, Hct 24.8 L, MCV 96.5, MCH 33.7, MCHC 34.9, RDW 13.9, Plt Count 96 L D, MPV 8.2, Neutrophils % 74.9 H, Lymphocytes % 9.8 L, Monocytes % 14.8 H, Eosinophils % 0.3, Basophils % 0.2, Absolute Neutrophils 4.5, Absolute Lymphocytes 0.6 L, Absolute Monocytes 0.9, Absolute Eosinophils 0.0, Absolute Basophils 0.0 Microbiology Results 12/21/21 17:20 Clean Catch Urine Matthews Count - Final >100,000 CFU/ML. 12/21/21 17:20 Clean Catch Urine - Final Enterococcus Faecalis Assessment/ Plan: Nephrology No dyspnea No chest pain Episode of hypotension with near syncope yesterday Difficulty with PT due to hypotension Vitals, medications, blood work and imaging reviewed in the chart. General: In no apparent distress, Oriented x3, Cooperative HEENT: Atraumatic Neck: Supple Respiratory: Clear to auscultation bilaterally Cardiovascular: Regular rate/rhythm, Edema Gastrointestinal: Soft and benign, Non-distended Musculoskeletal: No clubbing, No contractures Integumentary: No rashes, No cyanosis Neurological: Abnormal speech Laboratory Data (last 24 hrs) 12/22/21 04:22: Sodium 135 L, Potassium 4.2, BUN 13, Creatinine 0.73, Glucose 91, Magnesium 1.8 12/22/21 04:22: WBC 6.4, Hgb 8.6 L, Hct 25.1 L, Plt Count 68 L Conclusions/Impression: Hyponatremia -Continue Florinef -Continue NaCl tabs HTN complicated by episodes of hypotension -Continue Florinef -Caution with anti-hypertensives due to orthostatic hypotension LE Edema -Daily weight Moderate malnutrition -Continue Jevity Anemia in chronic illness Iron Deficiency 15% Thrombocytopenia -Monitor H&H -Continue iron supplementation BPH with LUTS -Continue Flomax
[2021-12-26] MEDS: ACETAMINOPHEN 500 MG TAB FT PRN ×2 (07:36→15:16)
[2021-12-26] MEDS: DIGOXIN 0.25 MG TABLET FT SCH (07:37)
[2021-12-26] MEDS: SODIUM CHLORIDE 1 GM TAB FT SCH ×2 (07:37→17:20)
[2021-12-26] MEDS: NYSTATIN 500,000 UNIT/5 ML UDC PO SCH ×3 (07:37→21:02)
[2021-12-26] MEDS: CRANBERRY FRUIT EXTRACT 400 MG CAP FT SCH ×2 (07:37→21:01)
[2021-12-26] MEDS: JEVITY 1.5 CAL LIQUID 1,000 ML BOT FT SCH ×5 (07:38→21:00)
[2021-12-26] MEDS: FLUDROCORTISONE 0.1 MG TAB FT SCH (07:38)
[2021-12-26] MEDS: APIXABAN 2.5 MG TABLET FT SCH ×2 (07:38→21:01)
[2021-12-26] MEDS: MIDODRINE HCL 5 MG TABLET PO SCH (07:38)
--- NOTE | 2021-12-26 07:41 | P.PN ---
Date of Service: 12/26/21 Vital Signs Temp Pulse Resp BP Pulse Ox 97.2 F 77 18 165/70 H 96 12/25/21 21:42 12/25/21 20:27 12/25/21 21:42 12/25/21 20:27 12/25/21 21:42 Medications Acetaminophen (Acetaminophen 500 Mg Tab) 500 mg FT Q4HP PRN PRN Reason: Pain scale 2-4 (Mild) Last Admin: 12/26/21 07:36 Dose: 500 mg Documented by: Hydrocodone Bitart/Acetaminophen (Hydrocodone/Apap 5/325 Mg Tab) 1 tab FT Q6H PRN PRN Reason: Pain scale 5-7 (Moderate) Last Admin: 12/25/21 20:26 Dose: 1 tab Documented by: Apixaban (Apixaban 2.5 Mg Tablet) 2.5 mg FT BID JAMES Last Admin: 12/26/21 07:38 Dose: 2.5 mg Documented by: Atorvastatin Calcium (Atorvastatin 40 Mg Tab) 40 mg FT BEDTIME JAMES Last Admin: 12/25/21 20:27 Dose: 40 mg Documented by: Clonazepam (Clonazepam 0.5 Mg Tab) 0.5 mg FT BID PRN PRN Reason: ANXIETY Last Admin: 12/25/21 20:24 Dose: 0.5 mg Documented by: Clonidine HCl (Clonidine Hcl 0.1 Mg Tab) 0.1 mg FT Q4H PRN PRN Reason: for sbp >170 Last Admin: 12/21/21 19:44 Dose: 0.1 mg Documented by: Digoxin (Digoxin 0.25 Mg Tablet) 0.25 mg FT DAILY [facility] Last Admin: 12/26/21 07:37 Dose: 0.25 mg Documented by: Diphenhydr/Magaldrate/Simeth/Lidoca (Magic Mouthwash 180 Ml Btl) 5 ml PO Q6H PRN PRN Reason: SORE THROAT Last Admin: 12/25/21 20:28 Dose: 5 ml Documented by: Doxazosin Mesylate (Doxazosin 2 Mg Tab) 1 mg PO BEDTIME JAMES Last Admin: 12/25/21 20:27 Dose: 1 mg Documented by: Famotidine (Famotidine 20 Mg Tab) 20 mg FT 1800 JAMES; Protocol Ferrous Sulfate (Ferrous Sulfate 220 Mg/5 Ml Elixir) 220 mg PO BIDWM [facility] Last Admin: 12/26/21 07:37 Dose: 220 mg Documented by: Fludrocortisone Acetate (Fludrocortisone 0.1 Mg Tab) 0.1 mg FT DAILY [facility] Last Admin: 12/26/21 07:38 Dose: 0.1 mg Documented by: Ipratropium [place] (Ipratropium Brom 0.5mg/2.5ml) 0.5 mg NEB [id number] PRN PRN Reason: SHORTNESS OF BREATH Lactulose (Lactulose 20 Gm/30 Ml Ucup) 20 gm FT Q6H PRN PRN Reason: CONSTIPATION Last Admin: 12/23/21 20:55 Dose: 20 gm Documented by: Lisinopril (Lisinopril 5 Mg Tab) 2.5 mg PO BID [facility] Last Admin: 12/25/21 20:25 Dose: 2.5 mg Documented by: Magnesium Hydroxide (Magnesium Hydroxide 8% 30 Ml) 30 ml FT BID PRN PRN Reason: CONSTIPATION Meclizine HCl (Meclizine Hcl 12.5 Mg Tab) 25 mg FT Q6H PRN PRN Reason: DIZZINESS Last Admin: 12/24/21 09:27 Dose: 25 mg Documented by: Melatonin (Melatonin 5 Mg Tablet) 10 mg PO BEDTIME PRN PRN PRN Reason: INSOMNIA Last Admin: 12/25/21 20:27 Dose: 10 mg Documented by: Midodrine (Midodrine Hcl 5 Mg Tablet) 5 mg PO BID [facility] Last Admin: 12/26/21 07:38 Dose: 5 mg Documented by: Nystatin (Nystatin 500,000 Unit/5 Ml Udc) 500,000 unit PO TID [facility] Last Admin: 12/26/21 07:37 Dose: 500,000 unit Documented by: Ondansetron HCl (Ondansetron 4 Mg (Odt) Tab) 4 mg FT Q4H PRN PRN Reason: NAUSEA / VOMITING Last Admin: 12/24/21 09:27 Dose: 4 mg Documented by: Sodium Chloride (Sodium Chloride 1 Gm Tab) 1 gm FT BIDWM [facility] Last Admin: 12/26/21 07:37 Dose: 1 gm Documented by: Microbiology Results 12/21/21 17:20 Clean Catch Urine Jewell Count - Final >100,000 CFU/ML. 12/21/21 17:20 Clean Catch Urine - Final Enterococcus Faecalis Assessment/ Plan: Nephrology No dyspnea No chest pain Episode of hypotension with near syncope yesterday Difficulty with PT due to hypotension Vitals, medications, blood work and imaging reviewed in the chart. General: In no apparent distress, Oriented x3, Cooperative HEENT: Atraumatic Neck: Supple Respiratory: Clear to auscultation bilaterally Cardiovascular: Regular rate/rhythm, Edema Gastrointestinal: Soft and benign, Non-distended Musculoskeletal: No clubbing, No contractures Integumentary: No rashes, No cyanosis Neurological: Abnormal speech Laboratory Data (last 24 hrs) 12/22/21 04:22: Sodium 135 L, Potassium 4.2, BUN 13, Creatinine 0.73, Glucose 91, Magnesium 1.8 12/22/21 04:22: WBC 6.4, Hgb 8.6 L, Hct 25.1 L, Plt Count 68 L Conclusions/Impression: Hyponatremia -Continue Florinef -Continue NaCl tabs Hypocalcemia -Start Vitamin D3 HTN complicated by episodes of hypotension with standing -Continue Florinef -Change anti-hypertensives to short-acting night time doses -Increase Midodrine 10mg daily LE Edema -Daily weight Moderate malnutrition -Continue Jevity Anemia in chronic illness Iron Deficiency 15% Thrombocytopenia -Monitor H&H -Continue iron supplementation -Start Colace; monitor for constipation BPH with LUTS -Continue Flomax
[2021-12-26] MEDS ORDERED: DOCUSATE NA 100 MG CAP PO SCH (08:00)
[2021-12-26] MEDS ORDERED: MIDODRINE HCL 5 MG TABLET PO SCH (08:00)
[2021-12-26] MEDS: MAGIC MOUTHWASH 180 ML BTL PO PRN (08:02)
[2021-12-26] MEDS ORDERED: MIDODRINE HCL 5 MG TABLET PO ONE (08:30)
[2021-12-26] MEDS: VITAMIN D 5,000 UNIT CAP PO SCH (08:49)
[2021-12-26] MEDS: DOCUSATE NA 50 MG/5 ML UCUP FT SCH ×2 (08:50→21:00)
--- NOTE | 2021-12-26 09:45 | P.RH.PN ---
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 Goal: Mobility, Transfers, Self Care Vital Signs: Last Vital Signs Temp 96.8 F 12/26/21 07:53 Pulse 73 12/26/21 07:53 Resp 17 12/26/21 07:53 BP 146/67 H 12/26/21 07:53 Pulse Ox 97 12/26/21 07:53 Laboratory: Laboratory Last Values WBC 6.0 K/uL (4.3-10.9) 12/25/21 04:13 RBC 2.57 M/uL (4.33-5.43) L 12/25/21 04:13 Hgb 8.6 g/dL (13.6-17.9) L 12/25/21 04:13 Hct 24.8 % (39.6-49.0) L 12/25/21 04:13 MCV 96.5 fL (80-100) 12/25/21 04:13 MCH 33.7 pg (27.0-35.0) 12/25/21 04:13 MCHC 34.9 g/dL (32.0-36.0) 12/25/21 04:13 RDW 13.9 % (12.1-15.2) 12/25/21 04:13 Plt Count 96 K/uL (152-406) L D 12/25/21 04:13 MPV 8.2 fL (7.6-11.3) 12/25/21 04:13 Neutrophils % 74.9 % (41.7-73.7) H 12/25/21 04:13 Lymphocytes % 9.8 % (15.3-44.8) L 12/25/21 04:13 Monocytes % 14.8 % (3.3-12.3) H 12/25/21 04:13 Eosinophils % 0.3 % (0-4.4) 12/25/21 04:13 Basophils % 0.2 % (0-1.3) 12/25/21 04:13 Absolute Neutrophils 4.5 K/uL (1.8-8.0) 12/25/21 04:13 Segmented Neutrophils 51 % (40-80) 12/22/21 04:22 Band Neutrophils 22 % (0-1) H* 12/22/21 04:22 Absolute Lymphocytes 0.6 K/uL (0.7-4.9) L 12/25/21 04:13 Lymphocytes 7 % (15-42) L 12/22/21 04:22 Monocytes 10 % (0-10) 12/22/21 04:22 Absolute Monocytes 0.9 K/uL (0.1-1.3) 12/25/21 04:13 Eosinophils 2 % (0-3) 12/22/21 04:22 Absolute Eosinophils 0.0 K/uL (0-0.5) 12/25/21 04:13 Absolute Basophils 0.0 K/uL (0-0.5) 12/25/21 04:13 Metamyelocytes 1 % (0-0) H 12/22/21 04:22 Myelocytes 1 % (0-0) H 12/22/21 04:22 Nucleated RBCs 2 /100WBC 12/22/21 04:22 Reactive Lymphocytes 6 % 12/22/21 04:22 Platelet Estimate Adeq 12/22/21 04:22 Morphology Comment Not seen (NOT SEEN) 12/22/21 04:22 Sodium 136 mmol/L (136-145) 12/25/21 04:13 Potassium 4.3 mmol/L (3.5-5.1) 12/25/21 04:13 Chloride 103 mmol/L (98-107) 12/25/21 04:13 Carbon Dioxide 31 mmol/L (21-32) 12/25/21 04:13 Anion Gap 6.3 mEq/L (5.0-15.0) 12/25/21 04:13 BUN 16 mg/dL (7-18) 12/25/21 04:13 Creatinine 0.77 mg/dL (0.55-1.3) 12/25/21 04:13 Est GFR (CKD-EPI) 92 ml/min (=/>90) 12/25/21 04:13 Glucose 85 mg/dL (74-106) 12/25/21 04:13 Calcium 8.1 mg/dL (8.5-10.1) L 12/25/21 04:13 Magnesium 1.9 mg/dL (1.8-2.4) 12/25/21 04:13 Albumin 2.3 g/dL (3.4-5.0) L 12/25/21 04:13 Prealbumin 15.4 mg/dL (20-40) L 12/25/21 04:13 Urine Color Yellow (Yellow) 12/21/21 17:39 Urine Appearance Clear (Clear) 12/21/21 17:39 Urine pH 8.5 (5.0-7.0) H 12/21/21 17:39 Ur Specific Mathews 1.020 (1.005-1.030) 12/21/21 17:39 Glucose (UA)(Auto) Negative (Negative) 12/21/21 17:39 Urine Ketones Negative (Negative) 12/21/21 17:39 Urine Blood Negative (Negative) 12/21/21 17:39 Urine Nitrite Negative (Negative) 12/21/21 17:39 Urine Bilirubin Negative (Negative) 12/21/21 17:39 Urine Urobilinogen 0.2 mg/dL (0.2-1.0) 12/21/21 17:39 Ur Leukocyte Esterase Negative (Negative) 12/21/21 17:39 Urine RBC None seen /HPF (NONE SEEN) 12/21/21 17:39 Urine WBC <5 /HPF (<5) 12/21/21 17:39 Ur Squamous Epith Cells <5 /HPF (NONE SEEN) 12/21/21 17:39 Ur Urothelial Cells Cancelled 12/21/21 17:20 Calcium Oxalate Crystal Cancelled 12/21/21 17:20 Uric Acid Crystals Cancelled 12/21/21 17:20 Triple Phos Crystals Cancelled 12/21/21 17:20 Other Crystals Cancelled 12/21/21 17:20 Amorphous Sediment Cancelled 12/21/21 17:20 Glitter Cells Cancelled 12/21/21 17:20 Urine Bacteria >50 /HPF (NONE SEEN) H 12/21/21 17:39 Hyaline Casts Cancelled 12/21/21 17:20 Fine Granular Casts Cancelled 12/21/21 17:20 Coarse Granular Casts Cancelled 12/21/21 17:20 Waxy Casts Cancelled 12/21/21 17:20 RBC Casts Cancelled 12/21/21 17:20 WBC Casts Cancelled 12/21/21 17:20 Urine Mucus Cancelled 12/21/21 17:20 Urine Other Cancelled 12/21/21 17:20 Urine Trichomonas Cancelled 12/21/21 17:20 Urine Yeast Cancelled 12/21/21 17:20 Ur Yeast w Hyphae Cancelled 12/21/21 17:20 Urine Yeast (Budding) Cancelled 12/21/21 17:20 Urine Sperm Cancelled 12/21/21 17:20 Urine Culture Reflexed Not needed 12/21/21 17:39 Urine Total Volume Cancelled 12/21/21 17:20 Urine Total Protein Negative (Negative) 12/21/21 17:39 SARS-CoV-2 Rap RNA(RT-PCR) Negative (NEGATIVE) 12/21/21 14:50 Weight: 209 lb 1.6 oz Wound Present: No Closed Surgical Incision Present: No Negative Pressure Wound Therapy Present: No Physician Update: Labs reviewed. Bed mobility is CGA, transfers CGA. Wheelchair 500' with standby assistance. Activities done in bed due to drop in SBP with SBA. He has a left lower extremity AFO. Summary: Patient's care plan and retirement goals have been reviewed and revised as necessary. Please see the Rehabilitation Signature page for all necessary signatures.
--- NOTE | 2021-12-26 14:40 | RAD REPORT ---
EXAM DESCRIPTION: RAD - Hip Left 2 View - 12/26/2021 2:14 pm CLINICAL HISTORY: Left groin/hip pain COMPARISON: No comparisons FINDINGS: AP and frogleg views of the left hip were obtained. There is no fracture or dislocation. No AVN or focal femoral head abnormality. Mild degenerative spu rring changes are seen along the superior rim of the acetabulum. No periarticular abnormality. No sig nificant SI joint degenerative change seen. No soft tissue abnormality. IMPRESSION: Mild degenerative change along the superior acetabular rim.
[2021-12-26] MEDS: FAMOTIDINE 20 MG TAB FT SCH (17:20)
[2021-12-26] MEDS: CAPTOPRIL 25 MG TABLET PO SCH (21:01)
[2021-12-26] MEDS: METOPROLOL TAR 25 MG TAB PO SCH (21:02)
[2021-12-26] MEDS: ATORVASTATIN 40 MG TAB FT SCH (21:02)
[2021-12-26] MEDS: MELATONIN 5 MG TABLET PO PRN (21:02)
[2021-12-27] MEDS: VITAMIN D 5,000 UNIT CAP PO SCH ×2 (08:00→08:24)
[2021-12-27] MEDS: DOCUSATE NA 50 MG/5 ML UCUP FT SCH ×2 (08:21→20:35)
[2021-12-27] MEDS: NYSTATIN 500,000 UNIT/5 ML UDC PO SCH ×3 (08:21→20:41)
[2021-12-27] MEDS: APIXABAN 2.5 MG TABLET FT SCH ×2 (08:22→20:34)
[2021-12-27] MEDS: FLUDROCORTISONE 0.1 MG TAB FT SCH (08:22)
[2021-12-27] MEDS: CRANBERRY FRUIT EXTRACT 400 MG CAP FT SCH ×2 (08:22→20:33)
[2021-12-27] MEDS: SODIUM CHLORIDE 1 GM TAB FT SCH ×2 (08:22→17:04)
[2021-12-27] MEDS: DIGOXIN 0.25 MG TABLET FT SCH (08:23)
[2021-12-27] MEDS: JEVITY 1.5 CAL LIQUID 1,000 ML BOT FT SCH ×5 (08:23→20:42)
[2021-12-27] MEDS: MIDODRINE HCL 5 MG TABLET PO SCH (08:23)
[2021-12-27] MEDS: ACETAMINOPHEN 500 MG TAB FT PRN ×2 (08:32→14:51)
[2021-12-27] MEDS: FAMOTIDINE 20 MG TAB FT SCH (17:04)
[2021-12-27] MEDS: METOPROLOL TAR 25 MG TAB PO SCH (20:33)
[2021-12-27] MEDS: clonazePAM 0.5 MG TAB FT PRN (20:33)
[2021-12-27] MEDS: ATORVASTATIN 40 MG TAB FT SCH (20:33)
[2021-12-27] MEDS: MELATONIN 5 MG TABLET PO PRN (20:33)
[2021-12-27] MEDS: CAPTOPRIL 25 MG TABLET PO SCH (20:34)
[2021-12-27] MEDS: HYDROCODONE/APAP 5/325 MG TAB FT PRN (20:37)
[2021-12-28] MEDS: VITAMIN D 5,000 UNIT CAP PO SCH (07:13)
[2021-12-28] MEDS: APIXABAN 2.5 MG TABLET FT SCH ×2 (07:19→20:41)
[2021-12-28] MEDS: DOCUSATE NA 50 MG/5 ML UCUP FT SCH ×2 (07:19→20:40)
[2021-12-28] MEDS: MIDODRINE HCL 5 MG TABLET PO SCH (07:19)
[2021-12-28] MEDS: SODIUM CHLORIDE 1 GM TAB FT SCH ×2 (07:19→17:28)
[2021-12-28] MEDS: NYSTATIN 500,000 UNIT/5 ML UDC PO SCH ×3 (07:19→20:42)
[2021-12-28] MEDS: CRANBERRY FRUIT EXTRACT 400 MG CAP FT SCH ×2 (07:19→20:41)
[2021-12-28] MEDS: JEVITY 1.5 CAL LIQUID 1,000 ML BOT FT SCH ×5 (07:20→20:41)
[2021-12-28] MEDS: FLUDROCORTISONE 0.1 MG TAB FT SCH (07:20)
[2021-12-28] MEDS: ACETAMINOPHEN 500 MG TAB FT PRN (07:36)
[2021-12-28] MEDS: DIGOXIN 0.25 MG TABLET FT SCH (07:37)
[2021-12-28] MEDS: FAMOTIDINE 20 MG TAB FT SCH (17:28)
[2021-12-28] MEDS: HYDROCODONE/APAP 5/325 MG TAB FT PRN (17:51)
[2021-12-28] MEDS: CAPTOPRIL 25 MG TABLET PO SCH (20:40)
[2021-12-28] MEDS: clonazePAM 0.5 MG TAB FT PRN (20:40)
[2021-12-28] MEDS: METOPROLOL TAR 25 MG TAB PO SCH (20:41)
[2021-12-28] MEDS: ATORVASTATIN 40 MG TAB FT SCH (20:41)
[2021-12-28] MEDS: MELATONIN 5 MG TABLET PO PRN (20:41)
[2021-12-29 04:23] LABS: Absolute Lymphocytes (CBC) 0.6 K/uL (0.7-4.9); Hematocrit 24.1 % (39.6-49.0); Lymphocytes % 13.3 % (15.3-44.8); MPV 7.6 fL (7.6-11.3); RBC Red Blood Cell Count 2.52 M/uL (4.33-5.43)
[2021-12-29 04:34] LABS: Potassium 4.1 mmol/L (3.5-5.1)
[2021-12-29 05:44] LABS: Blood Morphology Comment NOT SEEN (NOT SEEN); Platelet Estimate ADEQ
[2021-12-29] MEDS: JEVITY 1.5 CAL LIQUID 1,000 ML BOT FT SCH ×5 (07:30→20:59)
[2021-12-29] MEDS: ACETAMINOPHEN 500 MG TAB FT PRN ×2 (07:44→14:36)
[2021-12-29] MEDS: CRANBERRY FRUIT EXTRACT 400 MG CAP FT SCH ×2 (07:45→20:40)
[2021-12-29] MEDS: NYSTATIN 500,000 UNIT/5 ML UDC PO SCH ×3 (07:45→20:41)
[2021-12-29] MEDS: FLUDROCORTISONE 0.1 MG TAB FT SCH (07:46)
[2021-12-29] MEDS: APIXABAN 2.5 MG TABLET FT SCH ×2 (07:46→20:41)
[2021-12-29] MEDS: MIDODRINE HCL 5 MG TABLET PO SCH (07:46)
[2021-12-29] MEDS: SODIUM CHLORIDE 1 GM TAB FT SCH (07:46)
[2021-12-29] MEDS: VITAMIN D 5,000 UNIT CAP PO SCH (07:47)
[2021-12-29] MEDS: DIGOXIN 0.25 MG TABLET FT SCH (07:47)
[2021-12-29] MEDS: DOCUSATE NA 50 MG/5 ML UCUP FT SCH ×2 (08:00→20:42)
[2021-12-29] MEDS: LACTULOSE 20 GM/30 ML UCUP FT PRN (11:20)
--- NOTE | 2021-12-29 14:38 | PN ---
Date of Progress Note: 12/29/2021 Subjective: The patient is seen in room 509 at [facility]. The patient is a lert, awake, was with Physical Therapy earlier, walking around. His blood pressures have been high a t night between 140 to 180 systolic despite getting captopril which has improved it somewhat; however , in the morning when the patient gets up or when he is standing up, his blood pressures stay in the [address] Weaver has given him captopril at night where he is getting midodrine during the day to keep this under control. His sodium level was reasonable at about 136 range on the last l ab work. BMP is pending for tomorrow. The patient is on salt tablets twice a day. His vitals other machado are stable. His blood pressure lying was 188/82, sitting 149/77, standing up 112/49. Despite t his change in blood pressure with positioning, his volume status seems okay. He does not have any sw elling. He has been taking intake for his fluids and for his nutrition through the PEG tube. He is dealing with oral cancer that is being treated by Dr. Dimas and also by Radiation Oncology. Objective: Vital Signs: The patient's pulse is around 70, not much changed, between standing to sit ting has been about 72 to 74, standing goes to about 79. Lungs: Clear to auscultation. Abdomen: Soft. PEG tube is in place. Extremities: Revealed no edema. The patient has been able to walk around with physical therapy a li ttle bit. His strength is improving. His energy level is improving. Neurologic: He is alert, awake, able to talk and answer questions appropriately. Medications: In the chart reviewed. The patient has been on midodrine. He has been on captopril at bedtime. He is on midodrine in the morning. He is on Florinef. He is on salt tablets twice a day with 1 g tablet in the morning and evening. Laboratory Data: Reviewed labs from December 29 showed WBC of 4.3, hemoglobin 8.7, hematocrit 24.1, marilyn telet count of 207. Chemistry shows sodium 136, potassium 4.1, chloride 100, bicarb is 31, BUN and c reatinine are 19 and 0.8. Assessment/plan: The patient with fluctuating blood pressure, renal function reasonably stable. Sod ium low, but now stable. The patient with debilitation and cancer, being treated by Dr. Dimas and [facility]. Plan: Cut back on salt tablets to 1 tablet daily, continue midodrine judiciously. Fall precautions counseled. The patient's CBC and BMP seem reasonably stable today. Sodium level seems stable at 136 , do not need blood work to be repeated tomorrow morning. The patient will need quick followup in [facility] once discharged. I have advised him and given him information on our clinic in [place] as well . The patient can choose to follow up in [facility] with Dr. Weaver or come to our clinic in [place] with myself, Dr. Huddleston or Dr. Guadalupe. Will need medication and blood pressure m onitoring closely once discharged. The patient already has plans to follow up with on-call Oncology and Radiation Oncology as well. /JULIANNA Voice ID: [id number] Report ID: [id number]
--- NOTE | 2021-12-29 17:07 | R.PN ---
PROGRESS NOTES ENCOUNTER DATE AND TIME: 12/29/2021 11:11 (CDT) NAME YE HAMILTON DATE OF : 1945 DATE OF ADMISSION: 12/21/2021 15:21 (CDT) C02.8 Malignant neoplasm of overlapping sites of tongue, C79.9 Secondary malignant neoplasm site unsp ecified including lymph nodesCHIEF COMPLAINT: Metastatic throat cancer, severe dysphagia, debility, left lower extremity weakness, SIADH SUBJECTIVE: Pt denied any depression. Pt denied any Shortness of Breath. WBC 4.3, Hgb 8.7, Ca 8.1, band neutrophils 22, Na 136, prealbumin 15.4, covid-19 negative Bed mobility done with modified independence. Dysphagia training done with supervision. 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 His left lower extremity is being addressed with directe d exercises with evaluation of an AFO as needed. Ambulated 180' with CGA using a rolling walker. VITAL SIGNS Temperature: 97.1F SBP/DBP: 112/49 standing Pulse: 79 standing Resp: 16 MEDICATION ALLERGIES: No Known Drug Allergies (NKDA) ENVIRONMENTAL ALLERGIES: - Substance Allergies None Known - Other Allergies None Known NURSING: - Shower allowing shower ACTIVITIES OOB only with supervision THERAPIES: - Dietary and Nutrition Adequate Nutrition. Nutritional Education. Nutritional Supplements. Evaluate and Treat. - Occupational Therapy Cognitive Retraining. Patient needs Occupational Therapy for a daily minimum of 1.5 hours at least 5 out of 7 days, to improve Activities of Daily Living, including: Eating, Grooming, Bathing, Dressing, Toileting, Toilet Transfers, Community Reintegration, Higher functional activities, Adaptive Equipme nt, Splinting, Household Tasks, and Other activities as determined. ADL Training. Safety Awareness. H ousehold Tasks. Evaluate and Treat. Patient/Family Education. UE Strengthening. Visual Perceptual Tra ining. - Speech Therapy Cognitive Training. Expressive Language Skills. Memory Strategies. Patient needs Speech Therapy for a daily minimum of 1.5 hours at least 5 out of 7 days, to improve: Swallowing, Cognition, Language Ski lls, and Compensatory Strategies. Receptive Language Skills. Speech Intelligibility Training. Evaluat e and Treat. - Physical Therapy Patient needs Physical Therapy for a daily minimum of 1.5 hours at least 5 out of 7 days, to improve: Mobility, Strengthening, Transfers, Stretching, ROM, Endurance, Ability to manage stairs, Gait, and Balance. Balance Training. Evaluate and Treat. Gait Training. Safety Awareness. LE Strengthening. Tra nsfer Training. Mobility Training. PHYSICAL EXAM - Gen Alert and awake Lying in bed No apparent distress Oriented to: person, time, and place - Skin No skin breakdown. Normacephalic - Eyes No abnormalities - ENMT Severe dysphagia and dysarthria - Neck No pain - CVS RRR - Chest No abnormalities - Resp No wheezing - Abd Soft - GI Non distended Deferred - No abnormalities - Ext No significant edema - MSK 4+/5 weakness in left lower extremity - Neuro 4/5 strength left lower extremity. - Psych No abnormalities ASSESSMENT: [12/24/2021 13:48 (CDT), by Dr. Mikal Clancy]His impairment category is Neoplasms (17.2).Pt. is a 76 yo Right-handed male.On 12/09/[address] [facility] with diagnosis Bilatera l Pneumonia and issues related to his ongoing tongue and throat metastatic cancer..Pre-morbidly, Pt. was independent/mod-I in Locomotion, Safety Awareness, and Social Cognition; and he had good Transfer s Control, Self-Care, Sphincter Control, Communication, and Endurance.Currently, he has deficits of L ocomotion, Safety Awareness, Social Cognition, Balance, Sphincter Control, Self-Care, Communication, Endurance, and Transfers Control.Pt. is now referred to [facility] for acute i n-patient rehabilitation in order to maximize patient's functional independence in activities of piotr y living, strength, ROM, and mobility.- Rehab Goal Patient has realistic goal of being discharged at assistance level 7-Ind to reside at Home with Fami ly/Relatives. MDM/PLAN: - Physical Therapy Gait dysfunction - to improve, our physical therapists will perform initial evaluation of pt's statu s upon admission and devise an individualized program for Gait Training, and Wheel Chair mobility Inability to transfer - to improve, our physical therapists will perform initial evaluation of pt's status upon admission and devise an individualized program for Bed mobility Need for home safety evaluation - to improve, our physical therapists will perform initial evaluatio n of pt's status upon admission and devise an individualized program for Home Evaluation Need in caregiver upon discharge - to improve, our physical therapists will perform initial evaluati on of pt's status upon admission and devise an individualized program for Caregiver Training New precaution - to improve, our physical therapists will perform initial evaluation of pt's status upon admission and devise an individualized program for Patient precaution education Edema - to improve, our physical therapists will perform initial evaluation of pt's status upon admi ssion and devise an individualized program for Elevation Training, and Lymphedema Therapy Poor balance - to improve, our physical therapists will perform initial evaluation of pt's status up on admission and devise an individualized program for Balance Training Poor endurance - to improve, our physical therapists will perform initial evaluation of pt's status upon admission and devise an individualized program for Endurance Training Weakness - to improve, our physical therapists will perform initial evaluation of pt's status upon a dmission and devise an individualized program for Aquatic Therapy, Neuromuscular Reeducation, and Str engthening Achieving independence - to improve, our physical therapists will perform initial evaluation of pt's status upon admission and devise an individualized program for Community Reintegration Activities - Occupational Therapy ADL deficits - to improve, our occupation therapists will perform initial evaluation of pt's status upon admission and devise an individualized program for Bathing, Bed mobility, Community Reintegratio n, Cooking, Dressing, Eating, Fine Motor Skills, Grooming, Homemaking, Kitchen Mobility, Laundry, Pat ient Education, Safety Awareness, Splinting - Positioning, Transfers(Toilet, Tub, Shower), and Wheel Chair Management Cognitive deficits - to improve, our occupation therapists will perform initial evaluation of pt's s tatus upon admission and devise an individualized program for Cognition - orientation Need for wound care coordinator - to improve, our occupation therapists will perform initial evaluation of pt's status upon admission and devise an individualized program for Caregiver Training Weakness - to improve, our occupation therapists will perform initial evaluation of pt's status upon admission and devise an individualized program for Aquatic Therapy, Balance, Endurance, UE ROM, and UE strengthening - Other See attached MAR (Medication Administration Record) - Diet Type Continue Regular - Diet - Liquid Texture Continue Regular - Tube Feed Continue N/A - Diet - Solid Texture Continue Regular - Shower allowing shower FUNCTIONAL STATUS: UPDATED AT WEEKLY TEAM CONFERENCE - Bladder Same accident frequency: 7-Ind - No accidents in the past 7 days - Bowel Same accident frequency: 7-Ind - No accidents in the past 7 days - Walking Same score based on distance walked: 0(N/A) Same score based on distance walked: 1(<=50ft) - Wheelchair Same score based on distance traveled: 0(N/A) FUNCTIONAL STATUS: - Self-Care A. Eating Dep B. Grooming sup C. Bathing modA D. Dressing - Upper Klaus E. Dressing - Lower modA F. Toileting Marbella - Sphincter Control G. Bladder control Marbella H. Bowel control Marbella - Transfers Control I. Bed/Chair/Wheelchair Klaus J. Toilet Klaus K. Tub/Shower modA - Locomotion L. Walk/Wheelchair (B) Klaus M. Stairs maxA - Communication N. Comprehension (B) Marbella O. Expression (B) Marbella - Social Cognition P. Social Interaction Marbella Q. Problem Solving Marbella R. Memory Marbella - Endurance Good - Balance Fair - Safety Awareness Good QI SCORES: - Self-Care A. Eating 03-Partial/moderate assistance B. Oral hygiene 02-Substantial/maximal assistance C. Toileting hygiene 02-Substantial/maximal assistance E. Shower/bathe self 02-Substantial/maximal assistance F. Upper body dressing 02-Substantial/maximal assistance G. Lower body dressing 02-Substantial/maximal assistance H. Putting on/taking off footwear 88-Not attempted due to medical condition or safety concerns - Mobility A. Roll left and right 03-Partial/moderate assistance B. Sit to lying 03-Partial/moderate assistance C. Lying to sitting on side of bed 03-Partial/moderate assistance D. Sit to stand 02-Substantial/maximal assistance E. Chair/[id number] transfer 02-Substantial/maximal assistance F. Toilet transfer 02-Substantial/maximal assistance G. Car transfer 88-Not attempted due to medical condition or safety concerns I. Walk 10 feet 88-Not attempted due to medical condition or safety concerns J. Walk 50 feet with two turns 88-Not attempted due to medical condition or safety concerns K. Walk 150 feet 88-Not attempted due to medical condition or safety concerns L. Walking 10 feet on uneven surfaces 88-Not attempted due to medical condition or safety concerns M. 1 step (curb) 88-Not attempted due to medical condition or safety concerns N. 4 steps 88-Not attempted due to medical condition or safety concerns O. 12 steps 88-Not attempted due to medical condition or safety concerns P. Picking up object 88-Not attempted due to medical condition or safety concerns R. Wheel 50 feet with two turns 88-Not attempted due to medical condition or safety concerns S. Wheel 150 feet 88-Not attempted due to medical condition or safety concerns - Bladder and Bowel Bladder continence Bowel continence - Endurance Fair - Balance Poor - Safety Awareness Fair CURRENT [facility]. DEFICITS: Self-Care, Mobility, Endurance, Balance, and Safety Awareness SIGNATURE PANEL: (CDT)
[2021-12-29] MEDS: FAMOTIDINE 20 MG TAB FT SCH (17:09)
[2021-12-29] MEDS: HYDROCODONE/APAP 5/325 MG TAB FT PRN (17:27)
[2021-12-29 20:40] VITALS: TEMP 97.4
[2021-12-29] MEDS: METOPROLOL TAR 25 MG TAB PO SCH (20:40)
[2021-12-29] MEDS: CAPTOPRIL 25 MG TABLET PO SCH (20:40)
[2021-12-29] MEDS: MELATONIN 5 MG TABLET PO PRN (20:41)
[2021-12-29] MEDS: clonazePAM 0.5 MG TAB FT PRN (20:41)
[2021-12-29] MEDS: ATORVASTATIN 40 MG TAB FT SCH (20:41)
[2021-12-29 20:59] VITALS: BP 161/70
[2021-12-30] MEDS: ACETAMINOPHEN 500 MG TAB FT PRN ×2 (07:26→14:21)
[2021-12-30] MEDS: MAGIC MOUTHWASH 180 ML BTL PO PRN (07:27)
[2021-12-30] MEDS: NYSTATIN 500,000 UNIT/5 ML UDC PO SCH ×2 (07:27→14:12)
[2021-12-30] MEDS: CRANBERRY FRUIT EXTRACT 400 MG CAP FT SCH (07:27)
[2021-12-30] MEDS: DOCUSATE NA 50 MG/5 ML UCUP FT SCH (07:27)
[2021-12-30] MEDS: DIGOXIN 0.25 MG TABLET FT SCH (07:28)
[2021-12-30] MEDS: MIDODRINE HCL 5 MG TABLET PO SCH (07:28)
[2021-12-30] MEDS: FLUDROCORTISONE 0.1 MG TAB FT SCH (07:28)
[2021-12-30] MEDS: APIXABAN 2.5 MG TABLET FT SCH (07:29)
[2021-12-30] MEDS: VITAMIN D 5,000 UNIT CAP PO SCH (07:29)
[2021-12-30] MEDS: JEVITY 1.5 CAL LIQUID 1,000 ML BOT FT SCH ×3 (07:29→14:11)
[2021-12-30] MEDS ORDERED: SODIUM CHLORIDE 1 GM TAB FT SCH (08:00)
--- NOTE | 2021-12-30 18:28 | R.PN ---
PROGRESS NOTES ENCOUNTER DATE AND TIME: 12/30/2021 18:25 (CDT) NAME YE HAMILTON DATE OF : 1945 DATE OF ADMISSION: 12/21/2021 15:21 (CDT) C02.8 Malignant neoplasm of overlapping sites of tongue, C79.9 Secondary malignant neoplasm site unsp ecified including lymph nodesCHIEF COMPLAINT: Metastatic throat cancer, severe dysphagia, debility, left lower extremity weakness, SIADH SUBJECTIVE: Pt denied any depression. Pt denied any Shortness of Breath. WBC 4.3, Hgb 8.7, Ca 8.1, band neutrophils 22, Na 136, prealbumin 15.4, covid-19 negative Bed mobility done with modified independence. Dysphagia training done with supervision. 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 His left lower extremity is being addressed with directe d exercises with evaluation of an AFO as needed. Ambulated 480' with CGA using a rolling walker. VITAL SIGNS Temperature: 97.4 F SBP/DBP: 161/70 Pulse: 75 Resp: 16 MEDICATION ALLERGIES: No Known Drug Allergies (NKDA) ENVIRONMENTAL ALLERGIES: - Substance Allergies None Known - Other Allergies None Known NURSING: - Shower allowing shower ACTIVITIES OOB only with supervision THERAPIES: - Dietary and Nutrition Adequate Nutrition. Nutritional Education. Nutritional Supplements. Evaluate and Treat. - Occupational Therapy Cognitive Retraining. Patient needs Occupational Therapy for a daily minimum of 1.5 hours at least 5 out of 7 days, to improve Activities of Daily Living, including: Eating, Grooming, Bathing, Dressing, Toileting, Toilet Transfers, Community Reintegration, Higher functional activities, Adaptive Equipme nt, Splinting, Household Tasks, and Other activities as determined. ADL Training. Safety Awareness. H ousehold Tasks. Evaluate and Treat. Patient/Family Education. UE Strengthening. Visual Perceptual Tra ining. - Speech Therapy Cognitive Training. Expressive Language Skills. Memory Strategies. Patient needs Speech Therapy for a daily minimum of 1.5 hours at least 5 out of 7 days, to improve: Swallowing, Cognition, Language Ski lls, and Compensatory Strategies. Receptive Language Skills. Speech Intelligibility Training. Evaluat e and Treat. - Physical Therapy Patient needs Physical Therapy for a daily minimum of 1.5 hours at least 5 out of 7 days, to improve: Mobility, Strengthening, Transfers, Stretching, ROM, Endurance, Ability to manage stairs, Gait, and Balance. Balance Training. Evaluate and Treat. Gait Training. Safety Awareness. LE Strengthening. Tra nsfer Training. Mobility Training. PHYSICAL EXAM - Gen Alert and awake Lying in bed No apparent distress Oriented to: person, time, and place - Skin No skin breakdown. Normacephalic - Eyes No abnormalities - ENMT Severe dysphagia and dysarthria - Neck No pain - CVS RRR - Chest No abnormalities - Resp No wheezing - Abd Soft - GI Non distended Deferred - No abnormalities - Ext No significant edema - MSK 4+/5 weakness in left lower extremity - Neuro 4/5 strength left lower extremity. - Psych No abnormalities ASSESSMENT: [12/24/2021 13:48 (CDT), by Dr. Mikal Clancy]His impairment category is Neoplasms (17.2).Pt. is a 76 yo Right-handed male.On 12/09/2021 he was admitted to [facility] with diagnosis Bilatera l Pneumonia and issues related to his ongoing tongue and throat metastatic cancer..Pre-morbidly, Pt. was independent/mod-I in Locomotion, Safety Awareness, and Social Cognition; and he had good Transfer s Control, Self-Care, Sphincter Control, Communication, and Endurance.Currently, he has deficits of L ocomotion, Safety Awareness, Social Cognition, Balance, Sphincter Control, Self-Care, Communication, Endurance, and Transfers Control.Pt. is now referred to [facility] for acute i n-patient rehabilitation in order to maximize patient's functional independence in activities of piotr y living, strength, ROM, and mobility.- Rehab Goal Patient has realistic goal of being discharged at assistance level 7-Ind to reside at Home with Fami ly/Relatives. MDM/PLAN: - Physical Therapy Gait dysfunction - to improve, our physical therapists will perform initial evaluation of pt's statu s upon admission and devise an individualized program for Gait Training, and Wheel Chair mobility Inability to transfer - to improve, our physical therapists will perform initial evaluation of pt's status upon admission and devise an individualized program for Bed mobility Need for home safety evaluation - to improve, our physical therapists will perform initial evaluatio n of pt's status upon admission and devise an individualized program for Home Evaluation Need in caregiver upon discharge - to improve, our physical therapists will perform initial evaluati on of pt's status upon admission and devise an individualized program for Caregiver Training New precaution - to improve, our physical therapists will perform initial evaluation of pt's status upon admission and devise an individualized program for Patient precaution education Edema - to improve, our physical therapists will perform initial evaluation of pt's status upon admi ssion and devise an individualized program for Elevation Training, and Lymphedema Therapy Poor balance - to improve, our physical therapists will perform initial evaluation of pt's status up on admission and devise an individualized program for Balance Training Poor endurance - to improve, our physical therapists will perform initial evaluation of pt's status upon admission and devise an individualized program for Endurance Training Weakness - to improve, our physical therapists will perform initial evaluation of pt's status upon a dmission and devise an individualized program for Aquatic Therapy, Neuromuscular Reeducation, and Str engthening Achieving independence - to improve, our physical therapists will perform initial evaluation of pt's status upon admission and devise an individualized program for Community Reintegration Activities - Occupational Therapy ADL deficits - to improve, our occupation therapists will perform initial evaluation of pt's status upon admission and devise an individualized program for Bathing, Bed mobility, Community Reintegratio n, Cooking, Dressing, Eating, Fine Motor Skills, Grooming, Homemaking, Kitchen Mobility, Laundry, Pat ient Education, Safety Awareness, Splinting - Positioning, Transfers(Toilet, Tub, Shower), and Wheel Chair Management Cognitive deficits - to improve, our occupation therapists will perform initial evaluation of pt's s tatus upon admission and devise an individualized program for Cognition - orientation Need for respiratory care specialist - to improve, our occupation therapists will perform initial evaluation of pt's status upon admission and devise an individualized program for Caregiver Training Weakness - to improve, our occupation therapists will perform initial evaluation of pt's status upon admission and devise an individualized program for Aquatic Therapy, Balance, Endurance, UE ROM, and UE strengthening - Other See attached MAR (Medication Administration Record) - Diet Type Continue Regular - Diet - Liquid Texture Continue Regular - Tube Feed Continue N/A - Diet - Solid Texture Continue Regular - Shower allowing shower FUNCTIONAL STATUS: UPDATED AT WEEKLY TEAM CONFERENCE - Bladder Same accident frequency: 7-Ind - No accidents in the past 7 days - Bowel Same accident frequency: 7-Ind - No accidents in the past 7 days - Walking Same score based on distance walked: 0(N/A) Same score based on distance walked: 1(<=50ft) - Wheelchair Same score based on distance traveled: 0(N/A) FUNCTIONAL STATUS: - Self-Care A. Eating Dep B. Grooming sup C. Bathing modA D. Dressing - Upper Klaus E. Dressing - Lower modA F. Toileting Marbella - Sphincter Control G. Bladder control Marbella H. Bowel control Marbella - Transfers Control I. Bed/Chair/Wheelchair Klaus J. Toilet Klaus K. Tub/Shower modA - Locomotion L. Walk/Wheelchair (B) Klaus M. Stairs maxA - Communication N. Comprehension (B) Marbella O. Expression (B) Marbella - Social Cognition P. Social Interaction Marbella Q. Problem Solving Marbella R. Memory Marbella - Endurance Good - Balance Fair - Safety Awareness Good QI SCORES: - Self-Care A. Eating 03-Partial/moderate assistance B. Oral hygiene 02-Substantial/maximal assistance C. Toileting hygiene 02-Substantial/maximal assistance E. Shower/bathe self 02-Substantial/maximal assistance F. Upper body dressing 02-Substantial/maximal assistance G. Lower body dressing 02-Substantial/maximal assistance H. Putting on/taking off footwear 88-Not attempted due to medical condition or safety concerns - Mobility A. Roll left and right 03-Partial/moderate assistance B. Sit to lying 03-Partial/moderate assistance C. Lying to sitting on side of bed 03-Partial/moderate assistance D. Sit to stand 02-Substantial/maximal assistance E. Chair/[id number] transfer 02-Substantial/maximal assistance F. Toilet transfer 02-Substantial/maximal assistance G. Car transfer 88-Not attempted due to medical condition or safety concerns I. Walk 10 feet 88-Not attempted due to medical condition or safety concerns J. Walk 50 feet with two turns 88-Not attempted due to medical condition or safety concerns K. Walk 150 feet 88-Not attempted due to medical condition or safety concerns L. Walking 10 feet on uneven surfaces 88-Not attempted due to medical condition or safety concerns M. 1 step (curb) 88-Not attempted due to medical condition or safety concerns N. 4 steps 88-Not attempted due to medical condition or safety concerns O. 12 steps 88-Not attempted due to medical condition or safety concerns P. Picking up object 88-Not attempted due to medical condition or safety concerns R. Wheel 50 feet with two turns 88-Not attempted due to medical condition or safety concerns S. Wheel 150 feet 88-Not attempted due to medical condition or safety concerns - Bladder and Bowel Bladder continence Bowel continence - Endurance Fair - Balance Poor - Safety Awareness Fair CURRENT [facility]. DEFICITS: Self-Care, Mobility, Endurance, Balance, and Safety Awareness SIGNATURE PANEL: (CDT)
--- NOTE | 2022-01-02 15:48 | R.DS ---
DISCHARGE SUMMARY FACILITY [facility] MR# [id number] NAME YE HAMILTON ADDRESS [address] [place] [address] [address] [id number] PHONE DATE OF 1945 AGE 76 SSN# [id number] GENDER Male MARITAL STATUS ENCOUNTER PHYSICIAN Dr. Mikal Clancy M.D. 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 DATE OF ADMISSION 12/21/2021 15:21 (CDT) MEDICATION ALLERGIES: No Known Drug Allergies (NKDA) ENVIRONMENTAL ALLERGIES: - Substance Allergies None Known - Other Allergies None Known DISCHARGE MEDICATIONS: Other- ContinueSee attached MAR (Medication Administration Record). NURSING: - Shower allowing shower ACTIVITIES OOB only with supervision THERAPIES: - Dietary and Nutrition Adequate Nutrition Nutritional Education Nutritional Supplements Evaluate and Treat - Occupational Therapy Cognitive Retraining Patient needs Occupational Therapy for a daily minimum of 1.5 hours at least 5 out of 7 days, to impr ove Activities of Daily Living, including: Eating, Grooming, Bathing, Dressing, Toileting, Toilet Tra nsfers, Community Reintegration, Higher functional activities, Adaptive Equipment, Splinting, Househo ld Tasks, and Other activities as determined ADL Training Safety Awareness Household Tasks Evaluate and Treat Patient/Family Education UE Strengthening Visual Perceptual Training - Speech Therapy Cognitive Training Expressive Language Skills Memory Strategies Patient needs Speech Therapy for a daily minimum of 1.5 hours at least 5 out of 7 days, to improve: S wallowing, Cognition, Language Skills, and Compensatory Strategies Receptive Language Skills Speech Intelligibility Training Evaluate and Treat - Physical Therapy Patient needs Physical Therapy for a daily minimum of 1.5 hours at least 5 out of 7 days, to improve: Mobility, Strengthening, Transfers, Stretching, ROM, Endurance, Ability to manage stairs, Gait, and Balance Balance Training Evaluate and Treat Gait Training Safety Awareness LE Strengthening Transfer Training Mobility Training HISTORY OF PRESENT ILLNESS: [12/24/2021 13:48 (CDT), by Dr. Mikal Clancy]His impairment category is Neoplasms (17.2).Pt. is a 76 yo Right-handed male.On 12/09/2021 [facility] diagnosis Bilatera l Pneumonia and issues related to his ongoing tongue and throat metastatic cancer..Pre-morbidly, Pt. was independent/mod-I in Locomotion, Safety Awareness, and Social Cognition; and he had good Transfer s Control, Self-Care, Sphincter Control, Communication, and Endurance.Currently, he has deficits of L ocomotion, Safety Awareness, Social Cognition, Balance, Sphincter Control, Self-Care, Communication, Endurance, and Transfers Control.Pt. is now referred to [facility] for acute i n-patient rehabilitation in order to maximize patient's functional independence in activities of piotr y living, strength, ROM, and mobility.- Rehab Goal Patient has realistic goal of being discharged at assistance level 7-Ind to reside at Home with Fami ly/Relatives. DIET - LIQUID TEXTURE: On 12/15/2021 Pt was upgraded to Regular Diet - Liquid Texture. DIET - SOLID TEXTURE: On 12/15/2021 Pt was upgraded to Regular Diet - Solid Texture. DIET TYPE: On 12/15/2021 Pt was upgraded to Regular Diet Type. TUBE FEED: On 12/15/2021 Pt was changed to N/A Tube Feed. DISCHARGE PHYSICAL EXAM - Gen Alert and awake Lying in bed No apparent distress Oriented to: person, time, and place - Skin No skin breakdown. Normacephalic - Eyes No abnormalities - ENMT Severe dysphagia and dysarthria - Neck No pain - CVS RRR - Chest No abnormalities - Resp No wheezing - Abd Soft - GI Non distended Deferred - No abnormalities - Ext No significant edema - MSK 4+/5 weakness in left lower extremity - Neuro 4/5 strength left lower extremity. - Psych No abnormalities FUNCTIONAL STATUS: - Self-Care A. Eating 3-modA B. Grooming 5-sup C. Bathing 5-sup D. Dressing - Upper 5-sup E. Dressing - Lower 5-sup F. Toileting 6-Marbella - Sphincter Control G. Bladder control 6-Marbella H. Bowel control 6-Marbella - Transfers Control I. Bed/Chair/Wheelchair 5-sup J. Toilet 5-sup K. Tub/Shower 5-sup - Locomotion L. Walk/Wheelchair (B) 5-sup M. Stairs 3-modA - Communication N. Comprehension (B) 6-Marbella O. Expression (B) 6-Marbella - Social Cognition P. Social Interaction 6-Marbella Q. Problem Solving 6-Marbella R. Memory 6-Marbella - Endurance Good - Balance Good - Safety Awareness Good QI SCORES: - Self-Care A. Eating 03-Partial/moderate assistance B. Oral hygiene 02-Substantial/maximal assistance C. Toileting hygiene 02-Substantial/maximal assistance E. Shower/bathe self 02-Substantial/maximal assistance F. Upper body dressing 02-Substantial/maximal assistance G. Lower body dressing 02-Substantial/maximal assistance H. Putting on/taking off footwear 88-Not attempted due to medical condition or safety concerns - Mobility A. Roll left and right 03-Partial/moderate assistance B. Sit to lying 03-Partial/moderate assistance C. Lying to sitting on side of bed 03-Partial/moderate assistance D. Sit to stand 02-Substantial/maximal assistance E. Chair/jid-jt-skayi transfer 02-Substantial/maximal assistance F. Toilet transfer 02-Substantial/maximal assistance G. Car transfer 88-Not attempted due to medical condition or safety concerns I. Walk 10 feet 88-Not attempted due to medical condition or safety concerns J. Walk 50 feet with two turns 88-Not attempted due to medical condition or safety concerns K. Walk 150 feet 88-Not attempted due to medical condition or safety concerns L. Walking 10 feet on uneven surfaces 88-Not attempted due to medical condition or safety concerns M. 1 step (curb) 88-Not attempted due to medical condition or safety concerns N. 4 steps 88-Not attempted due to medical condition or safety concerns O. 12 steps 88-Not attempted due to medical condition or safety concerns P. Picking up object 88-Not attempted due to medical condition or safety concerns R. Wheel 50 feet with two turns 88-Not attempted due to medical condition or safety concerns S. Wheel 150 feet 88-Not attempted due to medical condition or safety concerns - Bladder and Bowel Bladder continence Bowel continence - Endurance Fair - Balance Poor - Safety Awareness Fair DISCHARGE INSTRUCTIONS: - N/A Eliquis 2.5 mg twice daily. DISCHARGE PLAN, FOLLOW UP CARE PROVISIONS: - Estimated Length of Stay (days) 13. - Consensus on plan Discharge plan has been discussed with primary caregiver. Patient/Family is in agreement with the marilyn n. Primary caregiver is in agreement with the plan. - Patient/Family Goals Return home independently. - Planned Living Setting Upon Discharge Home, to live with Family/Relatives. Transitional Living. SIGNATURE PANEL: (CDT)
== END 2021-12-30 15:30 | disposition home health service (06) | DRG 948 ==
LOC: 5TH 12-21 14:24
PROVIDERS: ADMIT Psychiatry & Neurology Neurology with Special Qualifications in Child Neurology; ATTEND Psychiatry & Neurology Neurology with Special Qualifications in Child Neurology
DX: R53.81 Other malaise (principal); C77.9 Secondary and unspecified malignant neoplasm of lymph node, unspecified; C79.89 Secondary malignant neoplasm of other specified sites; E22.2 Syndrome of inappropriate secretion of antidiuretic hormone; E87.1 Hypo-osmolality and hyponatremia; E44.0 Moderate protein-calorie malnutrition; C02.9 Malignant neoplasm of tongue, unspecified; R13.10 Dysphagia, unspecified; I95.9 Hypotension, unspecified; R55 Syncope and collapse; E83.51 Hypocalcemia; I10 Essential (primary) hypertension; D69.6 Thrombocytopenia, unspecified; N40.1 Benign prostatic hyperplasia with lower urinary tract symptoms; Z68.26 Body mass index [BMI] 26.0-26.9, adult; I48.91 Unspecified atrial fibrillation; J44.9 Chronic obstructive pulmonary disease, unspecified; Z93.1 Gastrostomy status; Z87.01 Personal history of pneumonia (recurrent); Z20.822 Contact with and (suspected) exposure to COVID-19
CPT/HCPCS: 36415; 71045; 80048; 81003; 81015; 82040; 83735; 84134; 85025; 87077; 87086; 87088; 87186; 92523; 92526; 97110; 97116; 97129; 97130; 97161; 97165; 97530; 97542; J1447; J8597; U0003

== ENCOUNTER 2022-04-02 10:39 | Day surgery (SDC) | payer OTHER ==
[2022-04-01 15:44] LABS: SARS-CoV-2 Antigen Rapid Res Negative (Negative)
[2022-04-02] MEDS ORDERED: CEFAZOLIN SODIUM 1 GM/VIAL ONE (11:18)
[2022-04-02] MEDS ORDERED: Ringers Lactate 1,000 ML IV ONE (11:18)
[2022-04-02] MEDS ORDERED: BUPIVACAINE 0.25% PF 10 ML VIAL IJ ONE ×2 (11:59)
[2022-04-02] MEDS ORDERED: FENTANYL CITR 100 MCG/2 ML ONE (12:03)
[2022-04-02] MEDS ORDERED: ONDANSETRON 4 MG/2 ML VIAL ONE (12:04)
[2022-04-02] MEDS ORDERED: MIDAZOLAM HCL 2 MG/2 ML INJ ONE (12:04)
[2022-04-02] MEDS ORDERED: propofoL 200 MG/20 ML VIAL IV ONE (12:04)
[2022-04-02] MEDS ORDERED: LIDOCAINE 1% MPF 5 ML VIAL ONE (12:06)
[2022-04-02] MEDS ORDERED: BUPIVACAINE 0.25% PF 30 ML VIAL ONE (12:13)
[2022-04-02] MEDS ORDERED: SODIUM HYPOCHLORITE 0.25% 473 ML ONE (12:14)
[2022-04-02] MEDS ORDERED: LIDOCAINE 1.5% W/EPI AMP 5 ML ONE (12:46)
--- NOTE | 2022-04-02 12:55 | P.OP ---
Preoperative diagnosis: RIGHT upper back infected sebaceous cyst Postoperative diagnosis: RIGHT upper back infected sebaceous cyst Primary procedure: Wide local excision of RIGHT upper back infected sebaceous cyst Anesthesia: IV Sedation + Local Estimated blood loss: <10cc Specimen: debridement tissue Findings: ruptured sebaceous cyst Complications: None Transferred to: Recovery Room Condition: Good
[2022-04-02 13:07] VITALS: O2SAT 100
[2022-04-02 14:10] VITALS: BP 140/63; TEMP 97.5
--- NOTE | 2022-04-02 23:54 | OP ---
Date of Procedure: 04/02/2022 Surgeon: Jesse Church MD, Preoperative Diagnosis: Right upper back infected sebaceous cyst. Postoperative Diagnosis: Right upper back infected sebaceous cyst. Procedure Performed: Wide local excision of right upper back infected sebaceous cyst. Anesthesia: IV sedation with local with 4% Marcaine without epinephrine. Estimated Blood Loss: Less than 10 cc. Specimen: Debrided tissue. Findings: Ruptured sebaceous cyst. Complications: None. Patient transferred to recovery room in good condition. Procedure In Detail: After informed consent was obtained, the patient was brought to the operating r oom and prepped and draped in the usual sterile fashion. After adequate anesthesia was achieved, I m zak a linear incision overlying the upper back infected sebaceous cyst that had sebaceous material em anating from this, in a curvilinear fashion. This was circumferentially dissected down through subcu taneous tissues using a 15 blade and then I dissected down through subcutaneous tissue to remove the entire sac down to fascia overlying muscle. This was then sent off for pathologic examination. The area was copiously irrigated and hemostasis was achieved with electrocautery. The wound was then pac ked with Dakin-soaked Kerlix and a sterile dressing was placed over top. The patient tolerated the p rocedure without any evidence of complication and transferred back in good condition. All counts were correct at the end of the case. ROLY/JULIANNA Voice ID: [id number] Report ID: [id number]
== END 2022-04-02 14:24 | disposition home or self-care (01) ==
LOC: OR 10:39
PROVIDERS: ATTEND Surgery
PROC: 0JB70ZZ Excision of Back Subcutaneous Tissue and Fascia, Open Approach (ICD-10-PCS; principal; 2022-04-02 12:30)
DX: L72.0 Epidermal cyst (principal); Z20.822 Contact with and (suspected) exposure to COVID-19
CPT/HCPCS: 36415; 88304; 87811; 11406; J2704; J2001; J2250; J3010; J7120; J2405; J0690

== ENCOUNTER 2022-04-24 08:42 | Day surgery (SDC) | payer OTHER ==
[2022-04-24 09:18] LABS: Potassium 4.7 mmol/L (3.5-5.1)
[2022-04-24 09:22] LABS: SARS-CoV-2 Antigen Rapid Res Negative (Negative)
[2022-04-24] MEDS ORDERED: Ringers Lactate 1,000 ML IV ONE (10:22)
[2022-04-24] MEDS ORDERED: FENTANYL CITR 100 MCG/2 ML ONE (11:35)
[2022-04-24] MEDS ORDERED: propofoL 200 MG/20 ML VIAL IV ONE (11:35)
[2022-04-24] MEDS ORDERED: MIDAZOLAM HCL 2 MG/2 ML INJ ONE (11:35)
[2022-04-24] MEDS ORDERED: LIDOCAINE 2% MPF 5 ML VIAL ONE (11:35)
[2022-04-24] MEDS ORDERED: NA CHLORIDE 0.9% 50 ML ONE (11:54)
[2022-04-24] MEDS ORDERED: CEFAZOLIN SODIUM 1 GM/VIAL ONE (11:54)
[2022-04-24] MEDS ORDERED: BUPIVACAINE 0.25% PF 30 ML VIAL ONE (12:01)
[2022-04-24] MEDS ORDERED: LIDOCAINE 1% W/EPI 1:100,000 10 ML VIAL ONE (12:45)
--- NOTE | 2022-04-24 13:07 | P.OP ---
Preoperative diagnosis: LEFT frontal scalp skin cancer, RIGHT post scalp katina cyst Postoperative diagnosis: LEFT frontal scalp skin cancer, RIGHT post scalp katina cyst Primary procedure: Wide local excision of LEFT frontal scalp skin cancer Secondary procedure: Excision of RIGHT posterior scalp cyst Anesthesia: GETA + Local Estimated blood loss: <10cc Specimen: sebaceous cyst, skin cancer Findings: skin cancer, sebaceous cyst Complications: None Transferred to: Recovery Room Condition: Good
[2022-04-24 13:20] VITALS: O2SAT 100
[2022-04-24 14:01] VITALS: BP 150/65; TEMP 97
--- NOTE | 2022-04-25 00:49 | OP ---
Date of Procedure: 04/24/2022 Surgeon: Jesse Church MD, Preoperative Diagnoses: Left frontal scalp skin cancer and right posterior scalp sebaceous cyst. Postoperative Diagnoses: Left frontal scalp skin cancer and right posterior scalp sebaceous cyst. Procedures Performed: 1.Wide local excision of left frontal scalp skin cancer. 2.Excision of right posterior scalp cyst. Anesthesia: General endotracheal, plus local with 0.25% Marcaine as well as 1% lidocaine with epinep hrine. Estimated Blood Loss: Less than 10 cc. Specimens: 1.Sebaceous cyst. 2.Skin cancer reexcision from left frontal scalp. Findings: Skin cancer from left frontal scalp and sebaceous cysts of the right posterior scalp. Complications: None. Disposition: The patient was transferred to the recovery room in good condition. Procedure In Detail: After informed consent was obtained, the patient was brought to the operating r oom, prepped and draped in the usual sterile fashion. After adequate anesthesia achieved, an area of the left frontal scalp was demarcated with approximately 0.5 cm margins. This was then taken down u sing elliptical incision over the left frontal scalp, previous excision biopsy-proven sebaceous skin cancer. This was taken down with a 15 blade down to subcutaneous tissues extending to the layer over lying the galea. The galea was left intact and the tissue was then removed using electrocautery. Th e tissue was then marked with short superior, long lateral marking sutures, and sent off for patholog ic examination. Hemostasis was achieved with electrocautery. At this point, the area was then irrig ated and reapproximated using interrupted 0 Prolene sutures in an interrupted fashion with good appro ximation of tissues. I then turned my attention and a sterile drape placed over top. I then turned my attention to the right posterior scalp cyst consistent with a sebaceous cyst. I made a linear inc ision overlying this area and followed it with elliptical incision circumferentially dissecting down using a blunt dissection to remove a sebaceous cyst. In fact, it appeared to be 2 sebaceous cysts of this area with sebaceous material contained. This was removed in its entirety, sent off for patholo gic examination. The area was copiously irrigated. Hemostasis was achieved with electrocautery. Th e wound was also reapproximated using same said 0 Prolene suture in interrupted fashion. Good approx imation of tissues. The patient tolerated the procedure well without evidence of any complication an d transferred to PACU in good condition. All counts were correct at the end of the case. ROLY/JULIANNA Voice ID: [id number] Report ID: [id number]
--- NOTE | 2022-04-26 07:47 | EKG ---
Test Date: 2022-04-24 Test Time: 08:31:37 [place]furter Inspector: RADHA MEASUREMENT RESULTS: Intervals: Rate: 59 MS: 172 QRSD: 94 QT: 378 QTc: 374 [place]: P: MS: 172 QRS: 21 T: 23 INTERPRETIVE STATEMENTS: Sinus bradycardia Nonspecific ST and T wave abnormality Abnormal ECG Compared to ECG 01/13/2007 18:43:06 ST (T wave) deviation now present Sinus rhythm no longer present T-wave abnormality no longer present Possible ischemia no longer present Electronically Signed On 04-26-22 07:44:34 CDT by Francis Harper
== END 2022-04-24 14:30 | disposition home or self-care (01) ==
LOC: OR 08:42
PROVIDERS: ATTEND Surgery
PROC: 0JB00ZZ Excision of Scalp Subcutaneous Tissue and Fascia, Open Approach (ICD-10-PCS; principal; 2022-04-24 12:00)
DX: C44.42 Squamous cell carcinoma of skin of scalp and neck (principal); L57.0 Actinic keratosis; L72.11 Pilar cyst; Z20.822 Contact with and (suspected) exposure to COVID-19
CPT/HCPCS: 93005; 80048; 36415; 88304; 88305; 87811; 11622; J2704; J2001; J3010; J7120; J0690; J2250

== ENCOUNTER 2022-05-09 19:58 | Emergency (ER) | payer OTHER ==
--- OUTSIDE RECORDS SUMMARY | 2022-05-09 20:01 | XMS REPORT | Continuity of Care Document ---
:1945 Author Organization [facility] t Address [address] [place] [address] Care Team Providers Name Role Phone FRANCESCA MCMAHON Primary Care Physician Unavailable ELSI CHUNG Attending Clinician Unavailable DAGO CODY Attending Clinician Unavailable Elsi Chung DO Attending Clinician LAB90 Attending Clinician Unavailable Ghassan Attending Clinician Unavailable FRANCESCA MCMAHON Attending Clinician Unavailable Ghassan Admitting Clinician Unavailable FRANCESCA MCMAHON Admitting Clinician Unavailable Payers Payer Name Policy Type Policy Number Effective Date Expiration Date S tone [employer] [place] PPO 5 [id number] 2021 00:00:00 [employer] (MEDICARE [id number] 2019 REPLACEMENT PPO) 00:00:00 Problems Condition Condition [...] Start Date Stop Date Source Former Smoker [facility] Medications Ordered Filled Start [...] by oral route. Mucinex Mucinex No Mucinex [facility] sotalol 80 sotalol 80 No [...] days. days. days. Tylenol Tylenol No Tylenol [facility] Vitamin D2 Vitamin D2 No Vitamin D2 [facility] Xarelto 20 Xarelto 20 No [...] Source BP Diastolic 2019-08-07 00:00:00 79 mm[Hg] [facility] Height 2019-08-07 00:00:00 74 [in_i] [facility] BMI (Body Mass 2019-08-07 00:00:00 34.8 kg/m2 [facility] BP Systolic 2019-08-07 00:00:00 162 mm[Hg] [facility] Body Weight 2019-08-07 00:00:00 271.4 [lb_av] [facility] Procedures Procedure Date / Time Performed Performing Clinician Sourc e TYMPANOMETRY 2019-08-07 00:00:00 [facility] Knee Surgery [facility] Tonsillectomy [facility] Plan of Care Planned Activity Planned Date Details Comments Source Instructions [facility] Encounters Start End Encounter Admission Attending Care Care Encounter Source Date/Time Date/Time Type Type Clinicians Facility Department ID 2022-06-17 2022-06-17 Outpatient NILSA CHUNG [id number] [place] 15:00:00 15:00:00 ELSI Rdzybol bekah 2022-04-27 2022-04-27 Outpatient NILSA CHUNG [id number] [place] 00:00:00 00:00:00 ELSI Seybol bekah 2022-03-31 2022-03-31 Outpatient DAGO CODY [id number] [place] 14:30:00 14:30:00 Seybaidan godfrey 2022-03-31 2022-03-31 Outpatient NILSA CHUNG [id number] [place] 00:00:00 00:00:00 ELSI Seybol bekah 2022-03-31 2022-03-31 Outpatient NILSA CHUNG [id number] [place] 00:00:00 00:00:00 ELSI Seybol bekah 2022-03-17 2022-03-17 Office Dago Chung [id number] [place] 15:45:00 16:30:00 Visit Elsi Orozco [id number] Se ybold [id number] 2022-03-16 2022-03-16 Outpatient LAB90 NILSA NILSA [id number] [place] 13:45:00 13:45:00 Seybol d 2022-02-16 2022-02-16 Outpatient PREZAS, NILSA OBRIEN [id number] [place] 00:00:00 00:00:00 ELSI Seybol d 2022-02-03 2022-02-03 Office Dago Chung [id number] [place] 15:45:00 16:15:00 Visit Elsi Orozco [id number] Se ybold [id number] 2022-02-02 2022-02-02 Outpatient PREZAJuan, NILSA OBRIEN [id number] [place] 00:00:00 00:00:00 ELSI Seybol d 2022-01-30 2022-01-30 Outpatient LAB90 NILSA NILSA [id number] [place] 15:20:00 15:20:00 Seybol d 2022-01-30 2022-01-30 Outpatient PREZAS, NILSA OBRIEN [id number] [place] 00:00:00 00:00:00 ELSI Seybol d 2022-01-30 2022-01-30 Outpatient PREZAS, NILSA OBRIEN [id number] [place] 00:00:00 00:00:00 ELSI Seybol d 2022-01-09 2022-01-09 Outpatient PREZAS, NILSA OBRIEN [id number] [place] 00:00:00 00:00:00 ELSI Seybol d 2022-01-08 2022-01-08 Office Dago Chung [id number] [place] 16:00:00 16:30:00 Visit Elsi Orozco [id number] Se ybold [id number] 2020-06-12 2020-06-12 Outpatient Brown_R MMG MMG [id number] [place] 02:20:00 02:20:00 1118 [facility] 2019-11-03 2019-11-03 Outpatient Brown_R MMG MMG [id number] [place] 01:25:00 01:25:00 0410 [facility] 2019-09-29 2019-09-29 Outpatient Brown_R MMG MMG [id number] [place] 10:37:00 10:37:00 0306 [facility] 2019-08-25 2019-08-25 Outpatient Brown_R MMG MMG [id number] [place] 12:05:00 12:05:00 0131 [facility] 2019-08-09 2019-08-09 Outpatient Brown_R MMG MMG [id number] [place] 04:06:00 04:06:00 0115 [facility] 2019-08-07 2019-08-07 Outpatient Brown_R MMG MMG [id number] [place] 05:25:00 05:25:00 0113 [facility] 2019-08-07 2019-08-07 Palivela MM [place] - [id number] [place] 00:00:00 00:00:00 MD Venancio: [address], Otolaryngol [facility] [address] , Ph. Results Test Description Test Time Test Comments Results Result Comments Source tympanogram 2019-08-07 14:41:31 Test Item Value Reference Range Interpretation Comme nts Right (test code = Right) Type C Peak [facility] on [facility] Disease [id number] 13:43:00 Test Item Value Reference Range Interpretation Comments HLA-B27 Negative HLA-B*27 Negati veB27 allele (test code = interpretation for all loci based 815018) on IMGT/HLAdata base version 3.25This test w as developed and its performance characteristics determined by [facility]. It has not been cleared or approvedby [facility] Food and Drug Administration. HLA Lab CLIA ID Number [id number] test was performed using PCR (Polymerase Chain Reaction) /SSOP(Sequence Specific Oligon ucleotide Probes) technique. SBT (SequenceBased Typing) and/or SSP (Sequence Specific Primer s) may be used assupplemental methods when necessary. Sanjeev rdz contact HLA CustomerService at if you have any questions. Director of HLA Laboratory Dr Francesca Reza, PhD Sed Rate ESR ([place])2017-04-30 19:13:00 Test Item Value Reference Range Interpretation Comments ESR (test code = HESR) 20 mm/Hr 0-9 H Lipid [id number] 18:59:00 Test Item Value Reference Range Interpretation Comments Cholesterol (test 239 mg/dL 0-200 H code = CHOL) Triglycerides (test 80 mg/dL 9-200 N code = TRIG) HDL (test code = 48 mg/dL 40-60 N HDL) Chol/HDL (test code 5.0 Ratio 0.0-5.0 N = CHOLPHDL) LDL, Calculated 175 mg/dL 0-130 H (NOTE)RISK O F HEART (test code = LDLC) DISEASEPu blished by Swedish Heart AssociationAnal yte Optimal Boderli ne Increased RiskC HOL <200 200-239 >240TRI G <150 150-199 >200HDL Male: >60 <40HDL Fem gwendolyn: >60 <50LDL <100 130 -159 >160LDL NEAR O PTIMAL IS 100-129 VLDL (test code = 16 mg/dL 5-40 N VLDL) LDL/HDL (test code = 4 LDLPHDL) Comprehensive Metabolic [id number] 18:59:00 Test Item Value Reference Range Interpretation [...] by the National Kidney Foundation,http ://nkd ep.nih.gov [id number] 18:59:00 Test Item Value Reference Range Interpretation Comments NT ProBnp (test code = PBNP) 454 pg/mL 0-124 H CBC with [id number] 18:04:00 Test Item Value Reference Range Interpretation [...] code = ALYMPH) 1.3 K/cumm 0.5-4.6 N Hand Abs (test code = AMONO) 0.4 K/cumm 0.0-1.2 N Eos Abs (test code = AEOS) 0.20 K/cumm 0.00-0.74 N Baso Abs (test code = ABASO) 0.0 K/cumm 0.00-0.21 N
--- NOTE | 2022-05-09 22:12 | ER ---
Nurse's Notes [facility] Name: Balwinder Cox Age: 77 yrs Sex: Male : 1945 Arrival Date: 05/09/2022 Time: 20:00 Bed DIS1 Private MD: Jesse Church Diagnosis: Encounter for PEG tube repair Presentation: 05/09 20:07 Chief complaint: Cut a hole in PEG tube while attempting to remove tap, Dr. Church hb instructed to come to ED. Coronavirus screen: At this time, the client does not indicate any symptoms associated with coronavirus-19. Ebola Screen: No symptoms or risks identified at this time. Initial Sepsis Screen: Does the patient meet any 2 criteria? No. Patient's initial sepsis screen is negative. Does the patient have a suspected source of infection? No. Patient's initial sepsis screen is negative. Risk Assessment: Do you want to hurt yourself or someone else? Patient reports no desire to harm self or others. Onset of symptoms was May 09, 2022. 20:07 Method Of Arrival: Ambulatory hb 20:07 Acuity: MARIPOSA 3 hb Triage Assessment: 20:30 General: Appears in no apparent distress. comfortable, Behavior is calm, cooperative. ll3 Pain: Denies pain. GI: PEG tube in place, clamped. to gravity drainage. Pt states cut peg tube with carola at home. Derm: Skin is pink, warm \T\ dry. Historical: - Allergies: 20:08 No Known Allergies; hb Screenin:19 Abuse screen: Denies threats or abuse. Denies injuries from another. Nutritional ll3 screening: No deficits noted. Tuberculosis screening: No symptoms or risk factors identified. Fall Risk None identified. Vital Signs: 20:07 BP 199 / 78; Pulse 83; Resp 16; Temp 98.1; Pulse Ox 100% on R/A; Weight 90.72 kg; hb Height 6 ft. 2 in. (187.96 cm); Pain 0/10; 20:07 Body Mass Index 25.68 (90.72 kg, 187.96 cm) hb ED Course: 20:00 Patient arrived in ED. as 20:00 Jesse Church MD is Private Physician. as 20:03 Alina Orozco FNP-C [facility]. kb 20:03 Nikhil Eubanks DO is Attending Physician. kb 20:08 Triage completed. hb 20:09 Arm band placed on. hb 22:19 Patient has correct armband on for positive identification. Bed in low position. Call ll3 light in reach. Side rails up X 1. Adult w/ patient. 22:19 No provider procedures requiring assistance completed. Patient did not have IV access ll3 during this emergency room visit. Administered Medications: No medications were administered Medication: 22:21 VIS not applicable for this client. ll3 Outcome: 22:12 Discharge ordered by MD. kb 22:19 Discharged to home ambulatory, with family. ll3 22:19 Condition: stable 22:19 Discharge instructions given to patient, family, Instructed on discharge instructions, follow up and referral plans. Demonstrated understanding of instructions, follow-up care. 22:21 Patient left the ED. ll3 Signatures: Alina Orozco, LITIGATION SERVICES MANAGER-C LITIGATION SERVICES MANAGER-Zulema Magallanes Heather, RN RN Nahun Leone RN RN ll3
--- NOTE | 2022-05-09 22:12 | EDPHYS ---
Physician Documentation [facility] Name: Balwinder Cox Age: 77 yrs Sex: Male : 1945 Arrival Date: 05/09/2022 Time: 20:00 Bed DIS1 Private MD: Jesse Church ED Physician Nikhil Eubanks HPI: 05/09 22:22 This 77 yrs old Male presents to ER via Ambulatory with complaints of Problem With kb Feeding Tube. 22:22 Pt states he got tape stuck around his peg tube so he tried to cut it off and kb accidentally cut the tube itself. Onset: The symptoms/episode began/occurred just prior to arrival. Severity of symptoms: At their worst the symptoms were mild in the emergency department the symptoms are unchanged. The patient has not experienced similar symptoms in the past. The patient has not recently seen a physician. Historical: - Allergies: 20:08 No Known Allergies; hb ROS: 22:21 Constitutional: Negative for fever, chills, and weight loss. kb 22:21 All other systems are negative. Exam: 22:21 Constitutional: This is a well developed, well nourished patient who is awake, alert, kb and in no acute distress. Head/Face: Normocephalic, atraumatic. ENT: Moist Mucous membranes Chest/axilla: Normal chest wall appearance and motion. Cardiovascular: Regular rate and rhythm with a normal S1 and S2. No gallops, murmurs, or rubs. No pulse deficits. Respiratory: Respirations even and unlabored. No increased work of breathing. Talking in full sentences Skin: Warm, dry with normal turgor. Normal color. MS/ Extremity: Pulses equal, no cyanosis. Neurovascular intact. Full, normal range of motion. Neuro: Awake and alert, GCS 15, oriented to person, place, time, and situation. Moves all extremities. Normal gait. Psych: Awake, alert, with orientation to person, place and time. Behavior, mood, and affect are within normal limits. 22:21 Abdomen/GI: Inspection: PEG tube in place with small hole cut in side. Vital Signs: 20:07 BP 199 / 78; Pulse 83; Resp 16; Temp 98.1; Pulse Ox 100% on R/A; Weight 90.72 kg; hb Height 6 ft. 2 in. (187.96 cm); Pain 0/10; 20:07 Body Mass Index 25.68 (90.72 kg, 187.96 cm) MDM: 20:04 Patient medically screened. kb 22:10 Data reviewed: vital signs, nurses notes. Data interpreted: Pulse oximetry: on room air kb is 100 %. Interpretation: normal. Counseling: I had a detailed discussion with the patient and/or guardian regarding: the historical points, exam findings, and any diagnostic results supporting the discharge/admit diagnosis, the need for outpatient follow up, a general surgeon, to return to the emergency department if symptoms worsen or persist or if there are any questions or concerns that arise at home. ED course: Tube cut below the level of the hole pt made and stopper placed back on tube. . 22:23 ED course: Dr Eubanks evaluated tube as well. suggested to cut tube before hole that pt kb had made and move stopper. . 05/09 20:35 Order name: Misc. Order; Complete Time: 21:21 kb Administered Medications: No medications were administered Disposition: 05/10 05:14 Co-signature as Attending Physician, Nikhil Eubanks DO I was immediately available onsite ms3 in the emergency department for consultation in the care of the patient. Disposition Summary: 05/09/22 22:12 Discharge Ordered Location: Home kb Condition: Stable kb Diagnosis - Encounter for PEG tube repair kb Followup: kb - With: Emergency Department - When: As needed - Reason: Worsening of condition Followup: kb - With: Private Physician - When: 2 - 3 days - Reason: Recheck today's complaints, Continuance of care, Re-evaluation by your physician Discharge Instructions: - Discharge Summary Sheet kb - PEG Tube Home Guide, [id number] kb Forms: - Medication Reconciliation Form kb - Thank You Letter kb - Antibiotic Education kb - Prescription Opioid Use kb Signatures: Alina Orozco FNP-C FNP-Aria Holder, RN RN Nikhil Katz DO DO ms3
[2022-05-09 22:26] VITALS: BP 199/78; TEMP 98.1; O2SAT 100
== END 2022-05-09 22:21 | disposition home or self-care (01) ==
LOC: ER 19:58
DX: K94.29 Other complications of gastrostomy (principal)
CPT/HCPCS: 99281

== ENCOUNTER 2022-07-16 10:49 | Emergency (ER) | payer OTHER ==
--- OUTSIDE RECORDS SUMMARY | 2022-07-16 10:53 | XMS REPORT | Continuity of Care Document ---
:1945 Author Organization [facility] t Address [address] [place] [address] Care Team Providers Name Role Phone FRANCESCA MCMAHON Primary Care Physician Unavailable MERCEDES HARRISON Attending Clinician Unavailable ELSI FELIX Attending Clinician Unavailable YOHAN PRABHAKAR Attending Clinician Unavailable ANGELINA QUINTANILLA Attending Clinician Unavailable LAB90 Attending Clinician Unavailable ZHANNA NUNES Attending Clinician Unavailable DAGO CODY Attending Clinician Unavailable Elsi Felix DO Attending Clinician Ghassan Attending Clinician Unavailable FRANCESCA MCMAHON Attending Clinician Unavailable Ghassan Admitting Clinician Unavailable FRANCESCA MCMAHON Admitting Clinician Unavailable Payers Payer Name Policy Type Policy Number Effective Date Expiration Date S tone [place]ET[place] 5 [id number] 2021 00:00:00 [employer] (MEDICARE [id number] 2019 REPLACEMENT PPO) 00:00:00 Problems Condition Condition Condition Status Onset Resolution Last Treating Co mments Source Name Details Category Date Date Treatment Clinician Date Snoring Snoring Disease Active 2021-07 Nilsa 2-19 Seybold 00:00: - 00 Externa l Immunodefi Immunodefi Disease Active 2021-07 Fiona merino ciency due ciency due 2-05 Se ybold to to 00:00: - conditions conditions 00 Ex terna classified classified l elsewhere elsewhere Other Other Disease Active 2021-07 Nilsa headache headache 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 00:00: - 00 Externa l Well adult Well adult Disease Active Fiona merino exam exam 03-17 Seybold 00:00: - 00 Externa l Bilateral Bilateral Disease Active Manoj mccartney impacted impacted 03-17 Seybol d cerumen cerumen 00:00: - 00 Externa l Hypercoagu Hypercoagu Disease Active Fiona merino lable lable 18 Seybold state due state due 00:00: - to chronic to chronic 00 Ex terna atrial atrial l fibrillati fibrillati on on Benign Benign Disease Active Nilsa prostatic prostatic 7-12 Seyb old hyperplasi hyperplasi 00:00: - a without a without 00 Exte rna lower lower l urinary urinary tract tract symptoms symptoms Anemia due Anemia due Disease Active Fiona merino to to 7-12 Seybold antineopla antineopla 00:00: - stic stic 00 Externa chemothera chemothera l py py 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 Seybold persistent persistent 00:00: - atrial atrial 00 Externa fibrillati fibrillati l on on Mixed Mixed Disease Active Nilsa hyperlipid hyperlipid 6-16 Se ybold emia emia 00:00: - 00 Externa l Orthostati Orthostati Disease Active Fiona mareskate c c 6-16 Seybold hypotensio hypotensio 00:00: - n n 00 Externa l Primary Primary Disease Active Nilsa hypertensi hypertensi 6-16 Se ybold on on 00:00: - 00 Externa l Throat Throat Disease Active Nilsa cancer cancer 6-16 Seybold 00:00: - 00 Externa l Tongue Tongue Disease Active Nilsa cancer cancer 6-16 Seybold 00:00: - 00 Externa l Left foot Left foot Disease Active Manoj sherrill drop drop 01-08 Seybold 00:00: - 00 Externa l Uses Uses Disease Active Nilsa feeding feeding 01-08 Seybold tube tube 00:00: - 00 Externa l Chronic Chronic Disease Active Nilsa anticoagul anticoagul 01-08 Se ybold ation ation 00:00: - 00 Externa l COPD COPD Disease Active Nilsa (chronic (chronic 01-08 Seybol d obstructiv obstructiv 00:00: - e e 00 Externa pulmonary pulmonary l disease) disease) Hyperlipid Hyperlipid Problem Active [facility] Deep Deep Problem Active [facility] venous 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 Social History Social Habit Start Date Stop Date Quantity Comments Source Alcohol intake 2022-07-14 2022-07-14 Ex-drinker Nilsa Sherrill bold - 00:00:00 00:00:00 (finding) External Tobacco use and 2022-03-17 2022-03-17 Smokeless tobacco Ke lsmaryam Seybold - exposure 00:00:00 00:00:00 non-user External Education 2022-01-08 2022-01-08 12 Nilsa Canchola - 00:00:00 00:00:00 External [birth year] Nilsasherrill rodriguez - 00:00:00 00:00:00 External Smoking Status Start Date Stop Date Source Ex-smoker 2022-03-17 00:00:00 2022-03-17 00:00:00 Nilsa jon - External Medications Ordered Filled Start Stop Current Ordering Indication Dosage Frequency Signature Comments Components Source Medication Medication Date Date Medication? Clinician (SIG) Name Name Nitroglycer 2021-07 Yes Nitrostat K elsey in 0.4 MG 2-20 0.4 mg Seybold sublingual 09:08: sublingual - SL Tab 21 tablet Externa l Nitroglycer 2021-07 Yes Nitrostat K elsey in 0.4 MG 2-19 0.4 mg Seybold sublingual 15:14: sublingual - SL Tab 51 tablet Externa l Amlodipine 2021-07 Yes [id number] 5mg Take 1 K elsey Besylate 2-16 tablet (5 Seybol d (Norvasc) 5 00:00: mg total) - MG oral 00 by mouth Externa Tablet daily l Amlodipine 2021-07 Yes [id number] 5mg Take 1 K elsey Besylate 2-16 tablet (5 Seybol d (Norvasc) 5 00:00: mg total) - MG oral 00 by mouth Externa Tablet daily l Captopril 2021-07 Yes [id number] 25mg Take 1 Ke lsey 25 MG oral 2-07 tablet (25 Sey bold Tablet 00:00: mg total) - 00 by mouth 2 Externa times l daily TAKE 1 TABLET(25 MG) BY MOUTH AT BEDTIME Captopril 2021-07 Yes [id number] 25mg Take 1 Ke lsey 25 MG oral 2-07 tablet (25 Sey bold Tablet 00:00: mg total) - 00 by mouth 2 Externa times l daily TAKE 1 TABLET(25 MG) BY MOUTH AT BEDTIME Nitroglycer 2021-07 Yes Nitrostat K elsey in 0.4 MG 1-29 0.4 mg Seybold sublingual 14:39: sublingual - SL Tab 11 tablet Externa l Multiple 2021-07 Yes [id number] 1{each} Take 1 Nilsa Vitamins-Ir 1-29 9109 each by Seybo ld on 00:00: mouth - (Multivitam 00 daily Externa in Plus l Iron Adult) oral Tablet Multiple 2021-07 Yes [id number] 1{each} Take 1 Nilsa Vitamins-Ir 1-29 9109 each by Seybo ld on 00:00: mouth - (Multivitam 00 daily Externa in Plus l Iron Adult) oral Tablet Multiple 2021-07 Yes [id number] 1{each} Take 1 Nilsa Vitamins-Ir 1-29 9109 each by Seybo ld on 00:00: mouth - (Multivitam 00 daily Externa in Plus l Iron Adult) oral Tablet Nitroglycer 2021-07 Yes Nitrostat K elsey in 0.4 MG 1-23 0.4 mg Seybold sublingual 14:55: sublingual - SL Tab 24 tablet Externa l Fluconazole 2021-07 Yes 150mg Take 150 K elsey 150 MG oral 1-16 mg by Seybold Tablet 00:00: mouth - 00 daily Externa l Fluconazole 2021-07 Yes 150mg Take 150 K elsey 150 MG oral 1-16 mg by Seybold Tablet 00:00: mouth - 00 daily Externa l Fluconazole 2021-07 Yes 150mg Take 150 K elsey 150 MG oral 1-16 mg by Seybold Tablet 00:00: mouth - 00 daily Externa l Fluconazole 2021-07 Yes 150mg Take 150 K elsey 150 MG oral 1-16 mg by Seybold Tablet 00:00: mouth - 00 daily Externa l Wound 2021-07 Yes Nilsa Cleansers 0-04 DIRECTED Seybol d (Vashe 00:00: EXTERNALLY - Wound 00 EVERY DAY Externa Therapy) FOR 14 l apply DAYS externally Solution Wound 2021-07 Yes Nilsa Cleansers 0-04 DIRECTED Seybol d (Vashe 00:00: EXTERNALLY - Wound 00 EVERY DAY Externa Therapy) FOR 14 l apply DAYS externally Solution Wound 2021-07 Yes Nilsa Cleansers 0-04 DIRECTED Seybol d (Vashe 00:00: EXTERNALLY - Wound 00 EVERY DAY Externa Therapy) FOR 14 l apply DAYS externally Solution Wound 2021-07 Yes Nilsa Cleansers 0-04 DIRECTED Seybol d (Vashe 00:00: EXTERNALLY - Wound 00 EVERY DAY Externa Therapy) FOR 14 l apply DAYS externally Solution Digoxin 250 2021-07 Yes [id number] 250ug Take 1 Nilsa MCG oral 0-03 tablet Seybold Tablet 00:00: (250 mcg - 00 total) by Externa mouth l daily Captopril 2021-07 Yes [id number] TAKE 1 Ke lsey 25 MG oral 0-03 TABLET(25 Seyb old Tablet 00:00: MG) BY - 00 MOUTH AT Externa BEDTIME l Fludrocorti 2021-07 Yes [id number] TAKE 1 Nilsa sone 0-03 TABLET VIA Seybold Acetate 0.1 00:00: FEEDING - MG oral 00 TUBE EVERY Mixing Supervisor a Tablet DAY l Sodium 2021-07 Yes [id number] 1g Take 1 Kelse y Chloride 1 0-03 tablet (1 Seyb old g oral 00:00: g total) - Tablet 00 by mouth Externa daily l Apixaban 2021-07 Yes [id number] 2.5mg Take 1 K elsey (Eliquis) 0-03 tablet Seybold 2.5 MG oral 00:00: (2.5 mg - Tablet 00 total) by Externa mouth 2 l times daily Digoxin 250 2021-07 Yes [id number] 250ug Take 1 Nilsa MCG oral 0-03 tablet Seybold Tablet 00:00: (250 mcg - 00 total) by Externa mouth l daily Fludrocorti 2021-07 Yes [id number] TAKE 1 Nilsa sone 0-03 TABLET VIA Seybold Acetate 0.1 00:00: FEEDING - MG oral 00 TUBE EVERY Mixing Supervisor a Tablet DAY l Sodium 2021-07 Yes [id number] 1g Take 1 Kelse y Chloride 1 0-03 tablet (1 Seyb old g oral 00:00: g total) - Tablet 00 by mouth Externa daily l Apixaban 2021-07 Yes [id number] 2.5mg Take 1 K elsey (Eliquis) 0-03 tablet Seybold 2.5 MG oral 00:00: (2.5 mg - Tablet 00 total) by Externa mouth 2 l times daily Digoxin 250 2021-07 Yes [id number] 250ug Take 1 Nilsa MCG oral 0-03 tablet Seybold Tablet 00:00: (250 mcg - 00 total) by Externa mouth l daily Fludrocorti 2021-07 Yes [id number] TAKE 1 Nilsa sone 0-03 TABLET VIA Seybold Acetate 0.1 00:00: FEEDING - MG oral 00 TUBE EVERY Mixing Supervisor a Tablet DAY l Sodium 2021-07 Yes [id number] 1g Take 1 Kelse y Chloride 1 0-03 tablet (1 Seyb old g oral 00:00: g total) - Tablet 00 by mouth Externa daily l Apixaban 2021-07 Yes [id number] 2.5mg Take 1 K elsey (Eliquis) 0-03 tablet Seybold 2.5 MG oral 00:00: (2.5 mg - Tablet 00 total) by Externa mouth 2 l times daily Digoxin 250 2021-07 Yes [id number] 250ug Take 1 Nilsa MCG oral 0-03 tablet Seybold Tablet 00:00: (250 mcg - 00 total) by Externa mouth l daily Captopril 2021-07 Yes [id number] TAKE 1 Ke lsey 25 MG oral 0-03 TABLET(25 Seyb old Tablet 00:00: MG) BY - 00 MOUTH AT Externa BEDTIME l Fludrocorti 2021-07 Yes [id number] TAKE 1 Nilsa sone 0-03 TABLET VIA Seybold Acetate 0.1 00:00: FEEDING - MG oral 00 TUBE EVERY Mixing Supervisor a Tablet DAY l Sodium 2021-07 Yes [id number] 1g Take 1 Kelse y Chloride 1 0-03 tablet (1 Seyb old g oral 00:00: g total) - Tablet 00 by mouth Externa daily l Apixaban 2021-07 Yes [id number] 2.5mg Take 1 K elsey (Eliquis) 0-03 tablet Seybold 2.5 MG oral 00:00: (2.5 mg - Tablet 00 total) by Externa mouth 2 l times daily Santyl 250 Yes Nilsa UNIT/GM 9-22 Seybold apply 00:00: - externally 00 Externa Ointment l Santyl 250 0 Yes Nilsa UNIT/GM 9-22 Seybold apply 00:00: - externally 00 Externa Ointment l Santyl 250 0 Yes Nilsa UNIT/GM 9-22 Seybold apply 00:00: - externally 00 Externa Ointment l Santyl 250 0 Yes Nilsa UNIT/GM 9-22 Seybold apply 00:00: - externally 00 Externa Ointment l Midodrine 0 Yes [id number] One pill Nilsa HCl 10 MG 8-23 daily. Seybold oral Tablet 00:00: HOLD if BP - 00 greater Externa than l 140/90 Famotidine Yes [id number] 20mg Take 1 Nilsa (PEPCID) 20 8-23 tablet (20 Se ybold MG oral 00:00: mg total) - tablet 00 by mouth Externa every l night at bedtime Atorvastati 0 Yes [id number] 20mg Take 1 Nilsa n Calcium 8-23 tablet (20 Seyb old 20 MG oral 00:00: mg total) - Tablet 00 by mouth Externa every l other day Atorvastati 0 Yes [id number] 20mg Take 1 Nilsa n Calcium 8-23 tablet (20 Seyb old 20 MG oral 00:00: mg total) - Tablet 00 by mouth Externa every l other day Atorvastati Yes [id number] 20mg Take 1 Nilsa n Calcium 8-23 tablet (20 Seyb old 20 MG oral 00:00: mg total) - Tablet 00 by mouth Externa every l other day Midodrine 0 Yes [id number] One pill Nilsa HCl 10 MG 8-23 daily. Seybold oral Tablet 00:00: HOLD if BP - 00 greater Externa than l 140/90 Famotidine Yes [id number] 20mg Take 1 Nilsa (PEPCID) 20 8-23 tablet (20 Se ybold MG oral 00:00: mg total) - tablet 00 by mouth Externa every l night at bedtime Atorvastati Yes [id number] 20mg Take 1 Nilsa n Calcium 8-23 tablet (20 Seyb old 20 MG oral 00:00: mg total) - Tablet 00 by mouth Externa every l other day Nystatin Yes SWISH 5 ML Manoj sey (Nystatin) 8-17 AROUND THE Sey bold [id number] 00:00: MOUTH FOR - UNIT/ML 00 2 MINUTES Externa mouth/throa AND l t SWALLOW. Suspension DO THIS FOUR TIMES DAILY Nystatin Yes SWISH 5 ML Manoj sey (Nystatin) 8-17 AROUND THE Sey bold [id number] 00:00: MOUTH FOR - UNIT/ML 00 2 MINUTES Externa mouth/throa AND l t SWALLOW. Suspension DO THIS FOUR TIMES DAILY Nystatin Yes SWISH 5 ML Manoj sey (Nystatin) 8-17 AROUND THE Sey bold [id number] 00:00: MOUTH FOR - UNIT/ML 00 2 MINUTES Externa mouth/throa AND l t SWALLOW. Suspension DO THIS FOUR TIMES DAILY Nystatin Yes SWISH 5 ML Manoj sey (Nystatin) 8-17 AROUND THE Sey bold [id number] 00:00: MOUTH FOR - UNIT/ML 00 2 MINUTES Externa mouth/throa AND l t SWALLOW. Suspension DO THIS FOUR TIMES DAILY Tamsulosin Yes [id number] .4mg Take 1 Nilsa HCl 0.4 MG 7-25 capsule Seybol d oral 00:00: (0.4 mg - Capsule 00 total) by Externa mouth l every night at bedtime Tamsulosin 2021-0 Yes [id number] .4mg Take 1 Nilsa HCl 0.4 MG 7-25 capsule Seybol d oral 00:00: (0.4 mg - Capsule 00 total) by Externa mouth l every night at bedtime Tamsulosin 2021-0 Yes [id number] .4mg Take 1 Nilsa HCl 0.4 MG 7-25 capsule Seybol d oral 00:00: (0.4 mg - Capsule 00 total) by Externa mouth l every night at bedtime Tamsulosin 2021-0 Yes [id number] .4mg Take 1 Nilsa HCl 0.4 MG 7-25 capsule Seybol d oral 00:00: (0.4 mg - Capsule 00 total) by Externa mouth l every night at bedtime Cranberry 2021-0 Yes [id number] Twice Ke lsey Fruit 405 7-07 daily Seybold MG oral 00:00: - Capsule 00 Externa l Cranberry 2021-0 Yes [id number] Twice Ke lsey Fruit 405 7-07 daily Seybold MG oral 00:00: - Capsule 00 Externa l Cranberry 2021-0 Yes [id number] Twice Ke lsey Fruit 405 7-07 daily Seybold MG oral 00:00: - Capsule 00 Externa l Cranberry 2021-0 Yes [id number] Twice Ke lsey Fruit 405 7-07 daily Seybold MG oral 00:00: - Capsule 00 Externa l Nutritional 2021-0 Yes 237mL Take 237 K elsey Supplements 6-17 mL by Seybold (Jevity 1.5 00:00: mouth 5 - Cj) oral 00 times Externa Liquid daily l Melatonin 2021-0 Yes Take by Kelse y 10 MG oral 6-17 mouth Seybold Capsule 00:00: - 00 Externa l Nutritional 2021-0 Yes 237mL Take 237 K elsey Supplements 6-17 mL by Seybold (Jevity 1.5 00:00: mouth 5 - Cj) oral 00 times Externa Liquid daily l Melatonin 2021-0 Yes Take by Kelse y 10 MG oral 6-17 mouth Seybold Capsule 00:00: - 00 Externa l Nutritional 2-0 Yes 237mL Take 237 K elsey Supplements 6-17 mL by Seybold (Jevity 1.5 00:00: mouth 5 - Cj) oral 00 times Externa Liquid daily l Magnesium Yes Take by Kelse y Hydroxide 6-17 mouth Seybold (Milk of 00:00: every 12 - Magnesia) 00 hours as Mixing Supervisor a 400 MG/5ML needed l oral (constipat Suspension ion) Melatonin Yes Take by Kelse y 10 MG oral 6-17 mouth Seybold Capsule 00:00: - 00 Externa l Nutritional 2021-0 Yes 237mL Take 237 K elsey Supplements 6-17 mL by Seybold (Jevity 1.5 00:00: mouth 5 - Cj) oral 00 times Externa Liquid daily l Magnesium Yes Take by Kelse y Hydroxide 6-17 mouth Seybold (Milk of 00:00: every 12 - Magnesia) 00 hours as Mixing Supervisor a 400 MG/5ML needed l oral (constipat Suspension ion) Melatonin Yes Take by Kelse y 10 MG oral 6-17 mouth Seybold Capsule 00:00: - 00 Externa l Ondansetron Yes DISSOLVE Jason lsey (ZOFRAN) 4 6-07 ONE TABLET Sey bold MG oral 00:00: BY MOUTH - TABLET 00 EVERY 6 Externa DISPERSIBLE HOURS l NEEDED FOR NAUSEA AND VOMITING Ondansetron 0 Yes DISSOLVE Ke lsey (ZOFRAN) 4 6-07 ONE TABLET Sey bold MG oral 00:00: BY MOUTH - TABLET 00 EVERY 6 Externa DISPERSIBLE HOURS l NEEDED FOR NAUSEA AND VOMITING Acetaminoph 2021-0 Yes 1{tbl} Take 1 Ke lsey en-Codeine 4-01 tablet by Seyb old #3 300-30 00:00: mouth - MG oral 00 every 6 Externa Tablet (six) l hours Acetaminoph 2021-0 Yes 1{tbl} Take 1 Ke lsey en-Codeine 4-01 tablet by Seyb old #3 300-30 00:00: mouth - MG oral 00 every 6 Externa Tablet (six) l hours Acetaminoph 2021-0 Yes 1{tbl} Take 1 Ke lsey en-Codeine 4-01 tablet by Seyb old #3 300-30 00:00: mouth - MG oral 00 every 6 Externa Tablet (six) l hours Acetaminoph 2021-0 Yes 1{tbl} Take 1 Ke lsey en-Codeine 4-01 tablet by Wenceslao old #3 300-30 00:00: mouth - MG oral 00 every 6 Externa Tablet (six) l hours atorvastati atorvastati No atorvastat [place] [facility] 40 [...] Name Observation Time Observation Value Comments Source Body weight 2022-07-14 15:07:00 89.812 kg Nilsa S eybold - External BMI 2022-07-14 15:07:00 25.42 kg/m2 Nilsa S eybold - External Systolic blood 2022-07-13 21:12:00 138 mm[Hg] Nilsa Seybold - pressure External Diastolic blood 2022-07-13 21:12:00 56 mm[Hg] Manojse y Seybold - pressure External Heart rate 2022-07-13 21:12:00 69 /min Nilsa S eybold - External Body temperature 2022-07-13 21:12:00 36.17 Michelle Monika ey Seybold - External Respiratory rate 2022-07-13 21:12:00 16 /min Monika ey Seybold - External Body height 2022-07-13 21:12:00 188 cm Nilsa S eybold - External Body weight 2022-07-13 21:12:00 89.812 kg Nilsa S eybold - External BMI 2022-07-13 21:12:00 25.42 kg/m2 Nilsa S eybold - External Systolic blood 2022-06-23 20:50:00 120 mm[Hg] Nilsa Seybold - pressure External Diastolic blood 2022-06-23 20:50:00 50 mm[Hg] Manojse y Seybold - pressure External Heart rate 2022-06-23 20:33:00 77 /min Nilsa S eybold - External Body temperature 2022-06-23 20:33:00 35.17 Michelle Monika ey Seybold - External Respiratory rate 2022-06-23 20:33:00 16 /min Monika ey Seybold - External Body height 2022-06-23 20:33:00 188 cm Nilsa S eybold - External Body weight 2022-06-23 20:33:00 87.998 kg Nilsa S eybold - External BMI 2022-06-23 20:33:00 24.91 kg/m2 Nilsa S eybold - External Systolic blood 2022-06-17 20:51:00 148 mm[Hg] Nilsa Seybold - pressure External Diastolic blood 2022-06-17 20:51:00 66 mm[Hg] Kelse y Seybold - pressure External Heart rate 2022-06-17 20:51:00 72 /min Nilsa franciscobonathalia - External Body temperature 2022-06-17 20:51:00 36.67 Michelle Monika [place] - External Respiratory rate 2022-06-17 20:51:00 16 /min Monika [place] - External Body height 2022-06-17 20:51:00 188 cm Nilsa franciscobonathalia - External Body weight 2022-06-17 20:51:00 89.359 kg Nilsa franciscobonathalia - External BMI 2022-06-17 20:51:00 25.29 kg/m2 Nilsa franciscobonathalia - External BP Diastolic 2019-08-07 00:00:00 79 mm[Hg] [facility] Height 2019-08-07 00:00:00 74 [in_i] [facility] BMI (Body Mass 2019-08-07 00:00:00 34.8 kg/m2 [facility] BP Systolic 2019-08-07 00:00:00 162 mm[Hg] [facility] Body Weight 2019-08-07 00:00:00 271.4 [lb_av] [facility] Procedures Procedure Date / Time Performed Performing Clinician Sourc e TYMPANOMETRY 2019-08-07 00:00:00 [facility] K[facility] Tonsillectomy [facility] Plan of Care Planned Activity Planned Date Details Comments Source Instructions [facility] Encounters Start End Encounter Admission Attending Care Care Encounter Source Date/Time Date/Time Type Type Clinicians Facility Department ID 2023-01-12 2023-01-12 Outpatient NILSA HARRISON [id number] Nilsa 13:30:00 13:30:00 MERCEDES Silverman ld 2022-09-17 2022-09-17 Outpatient NILSA FELIX [id number] Nilsa 15:15:00 15:15:00 ELSI Billyol bekah 2022-08-10 2022-08-10 Outpatient NILSA FELIX [id number] Nilsa 13:30:00 13:30:00 ELSI Wenceslaool d 2022-07-16 2022-07-16 Outpatient NILSA FELIXSEY [id number] Nilsa 10:00:00 10:00:00 ELSI Seybol d 2022-07-16 2022-07-16 Outpatient PRABHAKAR, NILSA OBRIEN [id number] Nilsa 00:00:00 00:00:00 YOHAN Seybol d 2022-07-16 2022-07-16 Outpatient PREZAS, NILSA OBRIEN [id number] [place]a 00:00:00 00:00:00 ELSI Seybol d 2022-07-15 2022-07-15 Outpatient PREZAS, NILSA OBRIEN [id number] Nilsa 00:00:00 00:00:00 ELSI Seybol d 2022-07-14 2022-07-14 Outpatient HUNTER, NILSA OBRIEN [id number] Nilsa 09:00:00 09:00:00 MERCEDES Seybo ld 2022-07-14 2022-07-14 Outpatient HU, NILSA OBRIEN [id number] Nilsa 00:00:00 00:00:00 ANGELINA Seybo ld 2022-07-13 2022-07-13 Outpatient PREZAS, NILSA OBRIEN [id number] Nilsa 15:15:00 15:15:00 ELSI Seybol d 2022-07-10 2022-07-10 Outpatient PREZAS, NILSA OBRIEN [id number] Nilsa 00:00:00 00:00:00 ELSI Seybol d 2022-07-10 2022-07-10 Outpatient PREZAS, NILSA OBRIEN [id number] Nilsa 00:00:00 00:00:00 ELSI Seybol d 2022-07-01 2022-07-01 Outpatient PREZAS, NILSA OBRIEN [id number] Nilsa 00:00:00 00:00:00 ELSI Seybol d 2022-07-01 2022-07-01 Outpatient PREZAS, NILSA OBRIEN [id number] Nilsa 00:00:00 00:00:00 ELSI Seybol d 2022-06-30 2022-06-30 Outpatient PREZAS, NILSA OBRIEN [id number] Nilsa 00:00:00 00:00:00 ELSI Seybol d 2022-06-23 2022-06-23 Outpatient PREZAJuan, NILSA OBRIEN [id number] Nilsa 14:45:00 14:45:00 ELSI Seybol d 2022-06-22 2022-06-22 Outpatient LAB90 NILSA OBRIEN [id number] Nilsa 09:20:00 09:20:00 Seybol d 2022-06-17 2022-06-17 Outpatient LAB90 NILSA OBRIEN [id number] Nilsa 15:30:00 15:30:00 Seybol d 2022-06-17 2022-06-17 Outpatient PRENILSA MOSS [id number] Nilsa 15:00:00 15:00:00 ELSI Seybol d 2022-06-02 2022-06-02 Outpatient ZHANNA NUNES [id number] Nilsa 14:00:00 14:00:00 Seybol d 2022-05-25 2022-05-25 Outpatient JULIET, NILSA OBRIEN [id number] Nilsa 00:00:00 00:00:00 ELSI Seybol d 2022-04-27 2022-04-27 Outpatient PREZAS, NILSA OBRIEN [id number] N[place]a 00:00:00 00:00:00 ELSI Seybol d 2022-03-31 2022-03-31 Outpatient DAGO CODY [id number] Nilsa 14:30:00 14:30:00 Seybol d 2022-03-31 2022-03-31 Outpatient PREZANILSA Martinez [id number] Nilsa 00:00:00 00:00:00 ELSI Seybol d 2022-03-31 2022-03-31 Outpatient PREZAS, NILSA OBRIEN [id number] Nilsa 00:00:00 00:00:00 ELSI Seybol d 2022-03-17 2022-03-17 Office Dago Felix [id number] Nilsa 15:45:00 16:30:00 Visit Elsi Orozco [id number] Se ybold [id number] 2022-03-16 2022-03-16 Outpatient LAB90 NILSA SILVASEY [id number] Nilsa 13:45:00 13:45:00 Seybol d 2022-02-16 2022-02-16 Outpatient PREZANILSA Martinez NILSA [id number] Nilsa 00:00:00 00:00:00 ELSI Seybol d 2022-02-03 2022-02-03 Office PreDago moss [id number] Nilsa 15:45:00 16:15:00 Visit Elsi Orozco [id number] Se ybold [id number] 2022-02-02 2022-02-02 Outpatient PRETONY NILSA OBRIEN [id number] Nilsa 00:00:00 00:00:00 ELSI Seybol d 2022-01-30 2022-01-30 Outpatient LAB90 NILSA OBRIEN [id number] N[place] 15:20:00 15:20:00 Seybol d 2022-01-30 2022-01-30 Outpatient PREZAS, NILSA NILSA [id number] N[place]a 00:00:00 00:00:00 ELSI Seybol d 2022-01-30 2022-01-30 Outpatient PREZAS, NILSA OBRIEN [id number] Nilsa 00:00:00 00:00:00 ELSI Seybol d 2022-01-09 2022-01-09 Outpatient PREZAS NILSA NILSA [id number] Nilsa 00:00:00 00:00:00 ELSI Seybol d 2022-01-08 2022-01-08 Office PreDago moss [id number] Nilsa 16:00:00 16:30:00 Visit Elsi Orozco [id number] Se ybold [id number] 2020-06-12 2020-06-12 Outpatient [facility] [id number] [place] 02:20:00 02:20:00 [id number] 2019-11-03 2019-11-03 Outpatient [facility] [id number] [place] 01:25:00 01:25:00 [facility] 2019-09-29 2019-09-29 Outpatient [facility] [id number] [place] 10:37:00 10:37:00 0306 [facility] 2019-08-25 2019-08-25 Outpatient [facility] [id number] [place] 12:05:00 12:05:00 0131 [facility] 2019-08-09 2019-08-09 Outpatient [facility] [id number] [place] 04:06:00 04:06:00 0115 [facility] 2019-08-07 2019-08-07 Outpatient Brown_R [facility] [id number] [place] 05:25:00 05:25:00 0113 [facility] 2019-08-07 2019-08-07 Paliv[facility] [place] - [id number] [place] 00:00:00 00:00:00 MD Venancio: [address] - [address], Otolaryngol [facility] [id number] , Ph. Results Test Description Test Time Test Comments Results Result Comments Source tympanogram 2019-08-07 14:41:31 Test Item Value Reference Range Interpretation Comme nts Right (test code = Right) Type C Peak [facility] Disease [id number] 13:43:00 Test Item Value Reference Range Interpretation Comments HLA-B27 Negative HLA-B*27 Negati veB27 allele (test code = interpretation for all loci based [id number]) on IMGT/HLAdata base version 3.25This test w as developed and its performance characteristics determined by [facility]. It has not been cleared or approvedby [facility] Food and Drug Administration. HLA Lab CLIA ID Number [id number] test was performed using PCR (Polymerase Chain Reaction) /SSOP(Sequence Specific Oligon ucleotide Probes) technique. SBT (SequenceBased Typing) and/or SSP (Sequence Specific Primer s) may be used assupplemental methods when necessary. Plea se contact [facility] [employer] at if you have any questions. Director of [facility] Dr Francesca Reza, PhD Sed Rate ESR ([place])2017-04-30 19:13:00 Test Item Value Reference Range Interpretation Comments ESR (test code = HESR) 20 mm/Hr 0-9 H Lipid [id number] 18:59:00 Test Item Value Reference Range Interpretation Comments Cholesterol (test 239 mg/dL 0-200 H code = CHOL) Triglycerides (test 80 mg/dL 9-200 N code = TRIG) HDL (test code = 48 mg/dL 40-60 N HDL) Chol/HDL (test code 5.0 Ratio 0.0-5.0 N = CHOLPHDL) LDL, Calculated 175 mg/dL 0-130 H (NOTE)RISK O F HEART (test code = LDLC) DISEASEPu blished by [place] Heart AssociationAnal yte Optimal Boderli ne Increased RiskC HOL <200 200-239 >240TRI G <150 150-199 >200HDL Male: >60 <40HDL Fema le: >60 <50LDL < 100 130-159 >160LDL NEAR OPTIMAL IS 100- 129 VLDL (test code = 16 mg/dL 5-40 N VLDL) LDL/HDL (test code = 4 LDLPHDL) Comprehensive Metabolic [id number] 18:59:00 Test Item Value Reference Range Interpretation [...] by the National Kidney Foundation,http ://nkd ep.nih.gov [id number] 18:59:00 Test Item Value Reference Range Interpretation Comments NT ProBnp (test code = PBNP) 454 pg/mL 0-124 H CBC with [id number] 18:04:00 Test Item Value Reference Range Interpretation [...] code = ALYMPH) 1.3 K/cumm 0.5-4.6 N [place] Abs (test code = AMONO) 0.4 K/cumm 0.0-1.2 N Eos Abs (test code = AEOS) 0.20 K/cumm 0.00-0.74 N Baso Abs (test code = ABASO) 0.0 K/cumm 0.00-0.21 N
[2022-07-16 11:25] LABS: Absolute Lymphocytes (CBC) 0.4 K/uL (0.7-4.9); Hematocrit 31.9 % (39.6-49.0); Lymphocytes % 7.7 % (15.3-44.8); MCV 94.7 fL (80-100); MPV 8.1 fL (7.6-11.3); RBC Red Blood Cell Count 3.37 M/uL (4.33-5.43)
[2022-07-16 11:28] LABS: Protime INR 1.25
--- NOTE | 2022-07-16 11:34 | RAD REPORT ---
EXAM DESCRIPTION: RAD - Chest Single View - 07/16/2022 11:19 am CLINICAL HISTORY: SOB Chest pain. COMPARISON: Chest Single View dated 12/22/2021; Ct Skull/Thigh dated 11/06/2021 FINDINGS: Portable technique limits examination quality. Moderate right pleural effusion is suspected. Mild atelectasis is present in the right lung base. Vag ue areas of nodularity are seen in both lungs. The heart is prominent. IMPRESSION: Moderate right pleural effusion is present vague areas of nodularity seen both lungs. Re commend CT chest for further evaluation.
[2022-07-16 11:42] LABS: Potassium 4.4 mmol/L (3.5-5.1); Troponin High Sensitivity 16.2 pg/mL (<58.9)
[2022-07-16 12:24] LABS: SARS-COV-2 RT PCR NEGATIVE (NEGATIVE)
--- NOTE | 2022-07-16 12:58 | RAD REPORT ---
EXAM DESCRIPTION: CT - Chest For Pe Angio - 07/16/2022 12:44 pm CLINICAL HISTORY: sob COMPARISON: THORAX WO CONTRAST dated 04/11/2007; Soft Tissue Neck W/Contr dated 07/15/2022 TECHNIQUE: Dynamically enhanced axial 3 mm thick images of the chest were obtained during administra tion of <100> mL Isovue 370 IV contrast. Coronal and oblique reconstruction images were generated and reviewed. Exam utilizes a protocol for optimal evaluation of pulmonary arterial tree. Maximum intensity projections 3D imaging was utilized All CT scans are performed using dose optimization technique as appropriate and may include automated exposure control or mA/KV adjustment according to patient size. FINDINGS: Chest Wall: No suspicious thyroid nodules or pathologic lymphadenopathy. Lungs: Atelectasis as a result of the pleural effusion. Bilateral pulmonary nodules are identified wh ich almost certainly represent metastatic disease. For example, there is a right upper lobe nodule me asuring 17 millimeters. In the left lung, a left upper lobe nodule measures 2.2 cm. Pleura: Moderate right pleural effusion. Mediastinum/jacqueline: No pathologic lymphadenopathy. Pulmonary arteries/Aorta: No filling defect identified. No aortic aneurysm. Heart: No significant pericardial effusion. Normal heart size. Upper abdomen: No acute abnormality.Gastrostomy tube. Question left renal cyst. Bones: No acute abnormality. IMPRESSION: Negative for pulmonary embolism. Moderate right pleural effusion which may be malignant. Underlying atelectasis is present. Bilateral pulmonary nodules consistent with metastatic disease.
--- NOTE | 2022-07-16 13:18 | EDPHYS ---
Physician Documentation [facility] Name: Balwinder Cox Age: 77 yrs Sex: Male : 1945 Arrival Date: 07/16/2022 Time: 10:51 Bed 15 Private MD: Lanre Felix ED Physician Jose Guadalupe Amin HPI: 07/16 10:59 This 77 yrs old Male presents to ER via Wheelchair with complaints of Shortness Of jmm Breath. 10:59 The patient has shortness of breath with light activity. Onset: The symptoms/episode jmm began/occurred gradually, 1 week(s) ago. Duration: The symptoms are continuous. This is a 77-year-old male with a history of atrial fibrillation, hyperlipidemia, orthostatic hypotension, hypertension that presents emerged department with complaints of shortness of breath worsening on exertion. Symptoms began approximately week ago. Patient denies fever. Denies chest pain. Patient was sent by his PCP for further evaluation. Historical: - Allergies: 11:07 No Known Allergies; ss - PMHx: 11:07 Atrial fibrillation; hyperlipidemia; orthostatic hypotension; Hypertension; ss 11:10 Throat CA; Tongue CA; ss - PSHx: 11:10 Hernia repair; Knee replacement; ss - Immunization history:: Client reports having NOT received the Covid vaccine. - Social history:: Smoking status: Patient/guardian denies using tobacco, the patient reports quitting approximately 30 years ago. ROS: 10:59 Constitutional: Negative for fever, chills, and weight loss, Cardiovascular: Negative jmm for chest pain, palpitations, and edema. 10:59 Respiratory: Positive for shortness of breath. 10:59 All other systems are negative. Exam: 10:59 Constitutional: This is a well developed, well nourished patient who is awake, alert, jmm and in no acute distress. Head/Face: atraumatic. Eyes: EOMI, no conjunctival erythema appreciated ENT: Moist Mucus Membranes Neck: Trachea midline, Supple Chest/axilla: Normal chest wall appearance and motion. Cardiovascular: Regular rate and rhythm. No edema appreciated Respiratory: Normal respirations, no respiratory distress appreciated Abdomen/GI: Non distended Back: Normal ROM Skin: General appearance color normal MS/ Extremity: Moves all extremities, no obvious deformities appreciated, no edema noted to the lower extremities Neuro: Awake and alert Psych: Behavior is normal, Mood is normal, Patient is cooperative and pleasant Vital Signs: 11:00 BP 124 / 57; Pulse 67; Resp 18; Pulse Ox 99% on R/A; db 11:00 BP 136 / 66; Pulse 72; Resp 16; Pulse Ox 99% on R/A; db 11:05 BP 137 / 72; Pulse 73; Resp 17; Temp 98.4(O); Pulse Ox 99% on R/A; Weight 86.18 kg; ss Height 6 ft. 2 in. (187.96 cm); Pain 0/10; 12:00 BP 109 / 48; Pulse 71; Resp 18; Pulse Ox 98% on R/A; db 11:05 Body Mass Index 24.39 (86.18 kg, 187.96 cm) ss MDM: 10:59 Patient medically screened. [facility] 13:17 Data reviewed: vital signs, nurses notes. Counseling: I had a detailed discussion with [facility] the patient and/or guardian regarding: the historical points, exam findings, and any diagnostic results supporting the discharge/admit diagnosis, the need for outpatient follow up, to return to the emergency department if symptoms worsen or persist or if there are any questions or concerns that arise at home. 13:17 ED course: I discussed the patient with pulmonology and recommended outpatient [facility] follow-up. Patient otherwise given strict return precautions. Patient understood and agrees plan of care.. 07/16 10:59 Order name: Basic Metabolic Panel; Complete Time: 11:47 [facility] 07/16 10:59 Order name: CBC with Diff; Complete Time: 11:37 [facility] 07/16 10:59 Order name: NT PRO-BNP; Complete Time: 11:47 [facility] 07/16 10:59 Order name: PT-INR; Complete Time: 11:37 [facility] 07/16 10:59 Order name: Troponin HS; Complete Time: 11:47 [facility] 07/16 11:01 Order name: COVID-19/FLU A+B; Complete Time: 12:25 [facility] 07/16 10:59 Order name: XRAY Chest (1 view); Complete Time: 11:37 [facility] 07/16 10:59 Order name: EKG; Complete Time: 11:00 [facility] 07/16 10:59 Order name: Cardiac monitoring; Complete Time: 11:12 [facility] 07/16 10:59 Order name: EKG - Nurse/Tech; Complete Time: 11:12 [facility] 07/16 10:59 Order name: IV Saline Lock; Complete Time: 11: [facility] 07/16 10:59 Order name: Labs collected and sent; Complete Time: 11:12 [facility] 07/16 12:25 Order name: CT Chest For PE Angio; Complete Time: 13:03 [facility] 07/16 10:59 Order name: O2 Per Protocol; Complete Time: 11: [facility] 07/16 10:59 Order name: O2 Sat Monitoring; Complete Time: 11:12 [facility] Administered Medications: 12:15 Drug: Tylenol 1000 mg {Note: given via gtube.} Route: PO; 13:42 Follow up: Response: No adverse reaction db Disposition Summary: 07/16/22 13:17 Discharge Ordered Location: Home [facility] Condition: Stable jmm Diagnosis - Pleural effusion, not elsewhere classified jmm Followup: [facility] - With: Jason Matthews MD - When: 1 - 2 days - Reason: Recheck today's complaints, Continuance of care, Re-evaluation by your physician Discharge Instructions: - Discharge Summary Sheet [facility] - Pleural Effusion [facility] Forms: - Medication Reconciliation Form [facility] - Thank You Letter [facility] - Antibiotic Education [facility] - Prescription Opioid Use [facility] Signatures: Dispatcher [employer] Mayo Beasley PA PA jmm Smirch, Shelby, BREANNA RN Jennifer Pineda RN db
--- NOTE | 2022-07-16 13:18 | ER ---
Nurse's Notes [facility] Name: Balwinder Cox Age: 77 yrs Sex: Male : 1945 Arrival Date: 07/16/2022 Time: 10:51 Bed 15 Private MD: Lanre Felix Diagnosis: Pleural effusion, not elsewhere classified Presentation: 07/16 11:05 Chief complaint: Patient states: shortness of breath upon exertion that began a week ss ago. Coronavirus screen: Client denies travel out of the [place] in the last 14 days. Ebola Screen: Patient denies exposure to infectious person. Patient denies travel to an Ebola-affected area in the 21 days before illness onset. Initial Sepsis Screen: Does the patient meet any 2 criteria? No. Patient's initial sepsis screen is negative. Does the patient have a suspected source of infection? No. Patient's initial sepsis screen is negative. Risk Assessment: Do you want to hurt yourself or someone else? Patient reports no desire to harm self or others. Onset of symptoms was July 09, 2022. 11:05 Method Of Arrival: Wheelchair ss 11:05 Acuity: MARIPOSA 3 ss Triage Assessment: 13:41 General: Appears in no apparent distress. Behavior is calm, cooperative, appropriate db for age, quiet. Respiratory: Onset: The symptoms/episode began/occurred gradually, the patient has moderate shortness of breath. Historical: - Allergies: 11:07 No Known Allergies; ss - PMHx: 11:07 Atrial fibrillation; hyperlipidemia; orthostatic hypotension; Hypertension; ss 11:10 Throat CA; Tongue CA; ss - PSHx: 11:10 Hernia repair; Knee replacement; ss - Immunization history:: Client reports having NOT received the Covid vaccine. - Social history:: Smoking status: Patient/guardian denies using tobacco, the patient reports quitting approximately 30 years ago. Screenin:00 [facility] ED Fall Risk Assessment (Adult) History of falling in the last 3 months, db including since admission No falls in past 3 months (0 pts). Abuse screen: Denies threats or abuse. Denies injuries from another. Nutritional screening: No deficits noted. Tuberculosis screening: No symptoms or risk factors identified. 12:00 [facility] ED Fall Risk Assessment (Adult) Confusion or Disorientation No (0 pts) db Intoxicated or Sedated No (0 pts) Impaired Gait Yes (1 pt) Mobility Assist Device Used Yes (1 pt) Altered Elimination No (0 pt) Score/Fall Risk Level 0 - 2 = Low Risk Oriented to surroundings. Assessment: 11:15 Reassessment: Patient appears in no apparent distress at this time. Patient is alert, db oriented x 3, equal unlabored respirations, skin warm/dry/pink. shortness of breath. G tube. General: Appears in no apparent distress. comfortable, Behavior is calm, cooperative, appropriate for age. Pain: Denies pain. Neuro: No deficits noted. Level of Consciousness is awake, alert, obeys commands, Oriented to person, place, time, situation, Appropriate for age. Cardiovascular: Rhythm is regular. Respiratory: Reports shortness of breath Airway is patent Respiratory effort is even, unlabored, Respiratory pattern is regular, symmetrical, Breath sounds are clear bilaterally. Vital Signs: 11:00 BP 124 / 57; Pulse 67; Resp 18; Pulse Ox 99% on R/A; db 11:00 BP 136 / 66; Pulse 72; Resp 16; Pulse Ox 99% on R/A; db 11:05 BP 137 / 72; Pulse 73; Resp 17; Temp 98.4(O); Pulse Ox 99% on R/A; Weight 86.18 kg; ss Height 6 ft. 2 in. (187.96 cm); Pain 0/10; 12:00 BP 109 / 48; Pulse 71; Resp 18; Pulse Ox 98% on R/A; db 11:05 Body Mass Index 24.39 (86.18 kg, 187.96 cm) ED Course: 10:51 Patient arrived in ED. rg4 10:51 Lanre Felix DO is Private Physician. rg4 10:53 Mayo Rayo PA is PHCP. m 10:53 Jose Guadalupe Amin MD is Attending Physician. m 10:59 Initial lab(s) drawn, by sc, sent to lab. EKG done, by ED staff, reviewed by Jose Guadalupe Amin MD. Inserted saline lock: 20 gauge in left antecubital area, using aseptic technique. Blood collected. 11:07 Triage completed. ss 11:08 Jennifer Sandoval, RN is Primary Nurse. db 11:10 Arm band placed on right wrist. ss 11:21 XRAY Chest (1 view) In Process Unspecified. EDMS 12:00 Patient has correct armband on for positive identification. Bed in low position. Call db light in reach. Side rails up X 1. 12:46 CT Chest For PE Angio In Process Unspecified. EDMS 13:17 Jason Matthews MD is Referral Physician. adalberto 13:41 No provider procedures requiring assistance completed. IV discontinued, intact, db bleeding controlled. Administered Medications: 12:15 Drug: Tylenol 1000 mg {Note: given via gtube.} Route: PO; ss 13:42 Follow up: Response: No adverse reaction db Medication: 12:00 VIS not applicable for this client. db Outcome: 13:17 Discharge ordered by MD. jmm 13:41 Discharged to home via wheelchair, with family. db 13:41 Condition: stable 13:41 Discharge instructions given to patient, significant other, Instructed on discharge instructions, follow up and referral plans. 13:42 Patient left the ED. db Signatures: Dispatcher [employer] EDMS Mayo Rayo PA PA jmm Smirch, Shelby, RN RN Indu Yepez rg4 Autumn Orozco kj1 Jennifer Sandoval, RN RN db
[2022-07-16 13:48] VITALS: TEMP 98.4
[2022-07-16 13:49] VITALS: BP 109/48; O2SAT 98
--- NOTE | 2022-07-18 17:27 | EKG ---
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
== END 2022-07-16 13:42 | disposition home or self-care (01) ==
LOC: ER 10:49
DX: J90 Pleural effusion, not elsewhere classified (principal); Z20.822 Contact with and (suspected) exposure to COVID-19; I10 Essential (primary) hypertension; I48.91 Unspecified atrial fibrillation
CPT/HCPCS: 93005; 85025; 80048; 36415; 85610; 84484; 83880; 0240U; 71275; 71045; 99284; Q9967

== ENCOUNTER 2022-07-19 10:19 | Inpatient (IN) | payer OTHER ==
--- OUTSIDE RECORDS SUMMARY | 2022-07-19 10:23 | XMS REPORT | Continuity of Care Document ---
:1945 Author Organization [facility] t Address [address] [place] [address] Care Team Providers Name Role Phone FRANCESCA MCMAHON Primary Care Physician Unavailable MERCEDES HARRISON Attending Clinician Unavailable ELSI FELIX Attending Clinician Unavailable BE ROJO Attending Clinician Unavailable YOHAN PRABHAKAR Attending Clinician [...] Effective Date Expiration Date S tone [place] 5 [id number] 2021 00:00:00 [employer] (MEDICARE [id number] 2019 REPLACEMENT PPO) 00:00:00 Problems Condition Condition Condition Status Onset Resolution Last Treating Co mments Source Name Details Category Date Date Treatment Clinician Date Dyspnea on Dyspnea on Disease Active 2021-07 Fiona merino exertion exertion 2-22 Seybol d 00:00: - 00 Externa l Snoring Snoring Disease Active 2021-07 Nilsa 2-19 Seybold 00:00: - 00 Externa l 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 due 2-05 Se ybold to to 00:00: - conditions conditions 00 Ex terna classified classified l elsewhere elsewhere Other Other Disease Active 2021-07 Nilsa headache headache 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 00:00: - 00 Externa l Well adult Well adult Disease Active Fiona mareskate exam exam 03-17 Seybold 00:00: - 00 Externa l Bilateral Bilateral Disease Active Manoj rdzkate impacted impacted 03-17 Seybol d cerumen cerumen [...] Anemia due Anemia due Disease Active Fiona mareskate to to 7-12 Seybold antineopla antineopla 00:00: - stic stic 00 Externa chemothera chemothera l py py 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 Seybold persistent persistent 00:00: - atrial atrial 00 Externa fibrillati fibrillati l on on Mixed Mixed Disease Active Nilsa hyperlipid hyperlipid 6-16 Se ybold emia emia 00:00: - 00 Externa l Orthostati Orthostati Disease Active Fiona merino c c 6-16 Seybold hypotensio hypotensio 00:00: - n n 00 Externa l Primary Primary Disease Active Nilsa hypertensi hypertensi 6-16 Se ybold on on 00:00: - 00 Externa l Throat Throat Disease Active Nilsa cancer cancer 6-16 Seybold 00:00: - 00 Externa l Tongue Tongue Disease Active Nilsa cancer cancer 16 Seybold 00:00: - 00 Externa l Left foot Left foot Disease Active Manoj mccartney drop drop 01-08 Seybold 00:00: - 00 [...] Stop Date Quantity Comments Source Alcohol intake 2022-07-16 2022-07-16 Ex-drinker Nilsasherrill Mccartney karina - 00:00:00 00:00:00 (finding) External Tobacco use and 2022-03-17 2022-03-17 Smokeless tobacco Ke juan Seybold - exposure 00:00:00 00:00:00 non-user External Education 2022-01-08 2022-01-08 12 Nilsasherrill Canchola - 00:00:00 00:00:00 External [birth year] Nilsa rodriguez - 00:00:00 00:00:00 External Smoking Status Start Date Stop Date Source Ex-smoker 2022-03-17 00:00:00 2022-03-17 00:00:00 Nilsa jon - External Medications Ordered Filled Start Stop Current Ordering Indication Dosage Frequency Signature Comments Components Source Medication Medication Date Date Medication? Clinician (SIG) Name Name Nitroglycer 2021-07 Yes Nitrostat K elsey in 0.4 MG 2-22 0.4 mg Seybold sublingual 10:14: sublingual - SL Tab 43 tablet Externa l Nitroglycer 2021-07 Yes Nitrostat K elsey in 0.4 MG 2-20 0.4 mg Seybold sublingual 09:08: sublingual - SL Tab 21 tablet Externa l Nitroglycer 2021-07 Yes Nitrostat K elsey in 0.4 MG 2-19 0.4 mg Seybold sublingual 15:14: sublingual - SL Tab 51 tablet Externa l Amlodipine 2021-07 Yes [id number] 5mg Take 1 K elsey Besylate 2-16 tablet (5 Seybol d (Norvasc) 5 00:00: mg total) - MG oral 00 by mouth Externa Tablet daily l Amlodipine 2021-07 Yes [id number] 5mg Take 1 K elsey Besylate 2-16 tablet (5 Seybol d (Norvasc) 5 00:00: mg total) - MG oral 00 by mouth Externa Tablet daily l Amlodipine 2021-07 Yes [id number] 5mg Take 1 K elsey Besylate 2-16 tablet (5 Seybol d (Norvasc) 5 00:00: mg total) - MG oral 00 by mouth Externa Tablet daily l Captopril 2021-07 Yes [id number] 25mg Take 1 Ke lsey 25 MG oral 2-07 tablet (25 Sey bold Tablet 00:00: mg total) - 00 by mouth 2 Externa times l daily TAKE 1 TABLET(25 MG) BY MOUTH AT BEDTIME Captopril 2021-07 Yes [id number] 25mg Take 1 Ke lsey 25 MG oral 2-07 tablet (25 Sey bold Tablet 00:00: mg total) - 00 by mouth 2 Externa times l daily TAKE 1 TABLET(25 MG) BY MOUTH AT BEDTIME Captopril 2021-07 Yes [id number] 25mg Take 1 Ke lsey 25 MG oral 2-07 tablet (25 Sey bold Tablet 00:00: mg total) - 00 by mouth 2 Externa times l daily TAKE 1 TABLET(25 MG) BY MOUTH AT BEDTIME Nitroglycer 2021-07 Yes Nitrostat K elsey in 0.4 MG -29 0.4 mg Seybold sublingual 14:39: sublingual - SL Tab 11 tablet Externa l Multiple 2021-07 Yes [id number] 1{each} Take 1 Nilsa Vitamins-Ir 08-23 9109 each by Seybo ld on 00:00: mouth - (Multivitam 00 daily Externa in Plus l Iron Adult) oral Tablet Multiple 2021-07 Yes [id number] 1{each} Take 1 Nilsa Vitamins-Ir 08-23 9109 each by Seybo ld on 00:00: mouth - (Multivitam 00 daily Externa in Plus l Iron Adult) oral Tablet Multiple 2021-07 Yes [id number] 1{each} Take 1 Nilsa Vitamins-Ir 08-23 9109 each by Seybo ld on 00:00: mouth - (Multivitam 00 daily Externa in Plus l Iron Adult) oral Tablet Multiple 2021-07 Yes [id number] 1{each} Take 1 Nilsa Vitamins-Ir 08-23 9109 each by Seybo ld on 00:00: [...] DAYS externally Solution Digoxin 250 2021-07 Yes [id number] 250ug Take 1 Nilsa MCG oral 0-03 tablet Seybold Tablet 00:00: (250 mcg - 00 total) by Externa mouth l daily Captopril 2021-07 Yes [id number] TAKE 1 Ke lsey 25 MG oral 0-03 TABLET(25 Seyb old Tablet 00:00: MG) BY - 00 MOUTH AT Externa BEDTIME l Fludrocorti 2021-07 Yes [id number] TAKE 1 Nilsa sone 0-03 TABLET VIA Seybold Acetate 0.1 00:00: FEEDING - MG oral 00 TUBE EVERY Director Of Blood a Tablet DAY l Sodium 2021-07 Yes [id number] 1g Take 1 Kelse y Chloride 1 0-03 tablet (1 Seyb old g oral 00:00: g total) - Tablet 00 by mouth Externa daily l Apixaban 2021-07 Yes [id number] 2.5mg Take 1 K elsey (Eliquis) 0-03 tablet Seybold 2.5 MG oral 00:00: (2.5 mg - Tablet 00 total) by Externa mouth 2 l times daily Digoxin 250 2021-07 Yes [id number] 250ug Take 1 Nilsa MCG oral 0-03 tablet Seybold Tablet 00:00: (250 mcg - 00 total) by Externa mouth l daily Fludrocorti 2021-07 Yes [id number] TAKE 1 Nilsa sone 0-03 TABLET VIA Seybold Acetate 0.1 00:00: FEEDING - MG oral 00 TUBE EVERY Director Of Blood a Tablet DAY l Sodium 2021-07 Yes [id number] 1g Take 1 Kelse y Chloride 1 0-03 tablet (1 Seyb old g oral 00:00: g total) - Tablet 00 by mouth Externa daily l Apixaban 2021-07 Yes [id number] 2.5mg Take 1 K elsey (Eliquis) 0-03 tablet Seybold 2.5 MG oral 00:00: (2.5 mg - Tablet 00 total) by Externa mouth 2 l times daily Digoxin 250 2021-07 Yes [id number] 250ug Take 1 Nilsa MCG oral 0-03 tablet Seybold Tablet 00:00: (250 mcg - 00 total) by Externa mouth l daily Fludrocorti 2021-07 Yes [id number] TAKE 1 Nilsa sone 0-03 TABLET VIA Seybold Acetate 0.1 00:00: FEEDING - MG oral 00 TUBE EVERY Director Of Blood a Tablet DAY l Sodium 2021-07 Yes [id number] 1g Take 1 Kelse y Chloride 1 0-03 tablet (1 Seyb old g oral 00:00: g total) - Tablet 00 by mouth Externa daily l Apixaban 2021-07 Yes [id number] 2.5mg Take 1 K elsey (Eliquis) 0-03 tablet Seybold 2.5 MG oral 00:00: (2.5 mg - Tablet 00 total) by Externa mouth 2 l times daily Digoxin 250 2021-07 Yes [id number] 250ug Take 1 Nilsa MCG oral 0-03 tablet Seybold Tablet 00:00: (250 mcg - 00 total) by Externa mouth l daily Fludrocorti 2021-07 Yes [id number] TAKE 1 Nilsa sone 0-03 TABLET VIA Seybold Acetate 0.1 00:00: FEEDING - MG oral 00 TUBE EVERY Director Of Blood a Tablet DAY l Sodium 2021-07 Yes [id number] 1g Take 1 Kelse y Chloride 1 0-03 tablet (1 Seyb old g oral 00:00: g total) - Tablet 00 by mouth Externa daily l Apixaban 2021-07 Yes [id number] 2.5mg Take 1 K elsey (Eliquis) 0-03 tablet Seybold 2.5 MG oral 00:00: (2.5 mg - Tablet 00 total) by Externa mouth 2 l times daily Digoxin 250 2021-07 Yes [id number] 250ug Take 1 Nilsa MCG oral 0-03 tablet Seybold Tablet 00:00: (250 mcg - 00 total) by Externa mouth l daily Captopril 2021-07 Yes [id number] TAKE 1 Ke lsey 25 MG oral 0-03 TABLET(25 Seyb old Tablet 00:00: MG) BY - 00 MOUTH AT Externa BEDTIME l Fludrocorti 2021-07 Yes [id number] TAKE 1 Nilsa sone 0-03 TABLET VIA Seybold Acetate 0.1 00:00: FEEDING - MG oral 00 TUBE EVERY Director Of Blood a Tablet DAY l Sodium 2021-07 Yes [id number] 1g Take 1 Kelse y Chloride 1 0-03 tablet (1 Seyb old g oral 00:00: g total) - Tablet 00 by mouth Externa daily l Apixaban 2021-07 Yes [id number] 2.5mg Take 1 K elsey (Eliquis) 0-03 tablet Seybold 2.5 MG oral 00:00: (2.5 mg - Tablet 00 total) by Externa mouth 2 l times daily Santyl 250 Yes Nilsa UNIT/GM 9-22 Seybold apply 00:00: - externally 00 Externa Ointment l Santyl 250 Yes Nilsa UNIT/GM 9-22 Seybold apply 00:00: - externally 00 Externa Ointment l Santyl 250 0 Yes Nilsa UNIT/GM 9-22 Seybold apply 00:00: - externally 00 Externa Ointment l Santyl 250 Yes Nilsa UNIT/GM 9-22 Seybold apply 00:00: - externally 00 Externa Ointment l Santyl 250 0 Yes Nilsa UNIT/GM 9-22 Seybold apply 00:00: - externally 00 Externa Ointment l Midodrine Yes [id number] One pill Nilsa HCl 10 MG 8-23 daily. Seybold oral Tablet 00:00: HOLD if BP - 00 greater Externa than l 140/90 Famotidine Yes [id number] 20mg Take 1 Nilsa (PEPCID) 20 8-23 tablet (20 Se ybold MG oral 00:00: mg total) - tablet 00 by mouth Externa every l night at bedtime Atorvastati Yes [id number] 20mg Take 1 Nilsa n Calcium 8-23 tablet (20 Seyb old 20 MG oral 00:00: mg total) - Tablet 00 by mouth Externa every l other day Atorvastati 0 Yes [id number] 20mg Take 1 Nilsa n Calcium 8-23 tablet (20 Seyb old 20 MG oral 00:00: mg total) - Tablet 00 by mouth Externa every l other day Atorvastati 0 Yes [id number] 20mg Take 1 Nilsa n Calcium 8-23 tablet (20 Seyb old 20 MG oral 00:00: mg total) - Tablet 00 by mouth Externa every l other day Atorvastati 0 Yes [id number] 20mg Take 1 Nilsa n Calcium 8-23 tablet (20 Seyb old 20 MG oral 00:00: mg total) - Tablet 00 by mouth Externa every l other day Midodrine Yes [id number] One pill Nilsa HCl 10 MG 8-23 daily. Seybold oral Tablet 00:00: HOLD if BP - 00 greater Externa than l 140/90 Famotidine 0 Yes [id number] 20mg Take 1 Nilsa (PEPCID) 20 8-23 tablet (20 Se ybold MG oral 00:00: mg total) - tablet 00 by mouth Externa every l night at bedtime Atorvastati 0 Yes [id number] 20mg Take 1 Nilsa n Calcium 8-23 tablet (20 Seyb old 20 MG oral 00:00: mg total) - Tablet 00 by mouth Externa every l other day Nystatin Yes SWISH 5 ML Manoj sey (Nystatin) 8-17 AROUND THE Sey bold [id number] 00:00: MOUTH FOR - UNIT/ML 00 2 MINUTES Externa mouth/throa AND l t SWALLOW. Suspension DO THIS FOUR TIMES DAILY Nystatin Yes SWISH 5 ML Manoj sey (Nystatin) 8-17 AROUND THE Sey bold [id number] 00:00: MOUTH FOR - UNIT/ML 00 2 MINUTES Externa mouth/throa AND l t SWALLOW. Suspension DO THIS FOUR TIMES DAILY Nystatin Yes SWISH 5 ML Manoj sey (Nystatin) 8-17 AROUND THE Sey bold [id number] 00:00: MOUTH FOR - UNIT/ML 00 2 MINUTES Externa mouth/throa AND l t SWALLOW. Suspension DO THIS FOUR TIMES DAILY Nystatin 2022-0 Yes SWISH 5 ML Manoj sey (Nystatin) 8-17 AROUND THE Sey bold 00:00: MOUTH FOR - UNIT/ML 00 2 MINUTES Externa mouth/throa AND l t SWALLOW. Suspension DO THIS FOUR TIMES DAILY Nystatin 0 Yes SWISH 5 ML Manoj sey (Nystatin) 8-17 AROUND THE Sey bold 00:00: MOUTH FOR - UNIT/ML 00 2 MINUTES Externa mouth/throa AND l t SWALLOW. Suspension DO THIS FOUR TIMES DAILY Tamsulosin 2021-0 Yes [id number] .4mg Take 1 Nlisa HCl 0.4 MG 7-25 capsule Seybol d oral 00:00: (0.4 mg - Capsule 00 total) by Externa mouth l every night at bedtime Tamsulosin 2021-0 Yes [id number] .4mg Take 1 Nilsa HCl 0.4 MG 7-25 capsule Seybol d oral 00:00: (0.4 mg - Capsule 00 total) by Externa mouth l every night at bedtime Tamsulosin 2021-0 Yes [id number] .4mg Take 1 Nilsa HCl 0.4 MG 7-25 capsule Seybol d oral 00:00: (0.4 mg - Capsule 00 total) by Externa mouth l every night at bedtime Tamsulosin 2021-0 Yes [id number] .4mg Take 1 Nilsa HCl 0.4 MG 7-25 capsule Seybol d oral 00:00: (0.4 mg - Capsule 00 total) by Externa mouth l every night at bedtime Tamsulosin 2021-0 Yes [id number] .4mg Take 1 Nilsa HCl 0.4 MG 7-25 capsule Seybol d oral 00:00: (0.4 mg - Capsule 00 total) by Externa mouth l every night at bedtime Cranberry 2021-0 Yes [id number] Twice Ke lsey Fruit 405 7-07 daily Seybold MG oral 00:00: - Capsule 00 Externa l Cranberry 2021-0 Yes [id number] Twice Ke lsey Fruit 405 7-07 daily Seybold MG oral 00:00: - Capsule 00 Externa l Cranberry 2021-0 Yes [id number] Twice Ke lsey Fruit 405 7-07 daily Seybold MG oral 00:00: - Capsule 00 Externa l Cranberry 2-0 Yes [id number] Twice Ke lsey Fruit 405 7-07 daily Seybold MG oral 00:00: - Capsule 00 Externa l Cranberry 2-0 Yes [id number] Twice Ke lsey Fruit 405 7-07 daily Seybold MG oral 00:00: - Capsule 00 Externa l Nutritional 2-0 Yes 237mL [...] 00 times Externa Liquid daily l Melatonin 2-0 Yes Take by Kelse y 10 MG oral 6-17 mouth Seybold Capsule 00:00: - 00 Externa l Nutritional 2021-0 Yes 237mL Take 237 K elsey Supplements 6-17 mL by Seybold (Jevity 1.5 00:00: mouth 5 - Cj) oral 00 times Externa Liquid daily l Magnesium 2021-0 Yes Take by Kelse y Hydroxide 6-17 mouth Seybold (Milk of 00:00: every 12 - Magnesia) 00 hours as Director Of Blood a 400 MG/5ML needed l oral (constipat Suspension ion) Melatonin 2021-0 Yes Take by Kelse y 10 MG oral 6-17 mouth Seybold Capsule 00:00: - 00 Externa l Nutritional 2-0 Yes 237mL Take 237 K elsey Supplements 6-17 mL by Seybold (Jevity 1.5 00:00: mouth 5 - Cj) oral 00 times Externa Liquid daily l Magnesium 2021-0 Yes Take by Kelse y Hydroxide 6-17 mouth Seybold (Milk of 00:00: every 12 - Magnesia) 00 hours as Director Of Blood a 400 MG/5ML needed l oral (constipat Suspension ion) Melatonin Yes Take by Ricardo y 10 MG oral -17 mouth Seybold Capsule 00:00: - 00 Externa l Ondansetron Yes DISSOLVE Ke lsey (ZOFRAN) 4 -07 ONE TABLET Sey bold MG oral 00:00: BY MOUTH - TABLET 00 EVERY 6 Externa DISPERSIBLE HOURS l NEEDED FOR NAUSEA AND VOMITING Ondansetron Yes DISSOLVE Ke lsey (ZOFRAN) 4 07 ONE TABLET Sey bold MG oral 00:00: BY MOUTH - TABLET 00 EVERY 6 Externa DISPERSIBLE HOURS l NEEDED FOR NAUSEA AND VOMITING Acetaminoph 0 Yes 1{tbl} Take 1 Ke lsey en-Codeine 4-01 tablet by yb old #3 300-30 00:00: mouth - MG oral 00 every 6 Externa Tablet (six) l hours Acetaminoph 2021-0 Yes 1{tbl} Take 1 Ke lsey en-Codeine 4-01 tablet by Seyb old #3 300-30 00:00: mouth - MG oral 00 every 6 Externa Tablet (six) l hours Acetaminoph 2022-0 Yes 1{tbl} Take 1 Ke lsey en-Codeine 4-01 tablet by Seyb old #3 300-30 00:00: mouth - MG oral 00 every 6 Externa Tablet (six) l hours Acetaminoph 2022-0 Yes 1{tbl} Take 1 Ke lsey en-Codeine 4-01 tablet by Seyb old #3 300-30 00:00: mouth - MG oral 00 every 6 Externa Tablet (six) l hours Acetaminoph 2022-0 Yes 1{tbl} Take 1 Ke lsey en-Codeine 4-01 tablet by WISeKeyyb old #3 300-30 00:00: mouth - MG [...] Name Observation Time Observation Value Comments Source Systolic blood 2022-07-16 16:11:00 130 mm[Hg] Nilsa Canchola - pressure External Diastolic blood 2022-07-16 16:11:00 56 mm[Hg] Ricardo Canchola - pressure External Heart rate 2022-07-16 16:11:00 74 /min Nilsa franciscobold - External Body temperature 2022-07-16 16:11:00 35.89 Michelle Monika ey Seybold - External Respiratory rate 2022-07-16 16:11:00 15 /min Monika ey Seybold - External Body height 2022-07-16 16:11:00 188 cm Nilsa S eybold - External Body weight 2022-07-16 16:11:00 89.812 kg Nilsa S eybold - External BMI 2022-07-16 16:11:00 25.42 kg/m2 Nilsa S eybold - External Oxygen saturation in 2022-07-16 16:11:00 95 /min Nilsa Seybold - Arterial blood by External Pulse oximetry Body weight 2022-07-14 15:07:00 89.812 kg Nilsa [...] External Diastolic blood 2022-06-23 20:50:00 50 mm[Hg] Kelse y Seybold - pressure External Heart rate 2022-06-23 20:33:00 77 /min Nilsa S eybold - External Body temperature 2022-06-23 20:33:00 35.17 Michelle Monika ey Seybold - External Respiratory rate 2022-06-23 20:33:00 16 /min Monika ey Seybold - External Body height 2022-06-23 20:33:00 188 cm Nilsa Martinez eybold - External Body weight 2022-06-23 20:33:00 87.998 kg Nilsa Martinze eybold - External BMI 2022-06-23 20:33:00 24.91 kg/m2 Nilsa Martinez eybold - External Systolic blood 2022-06-17 20:51:00 148 mm[Hg] Nilsa Seybold - pressure External Diastolic blood 2022-06-17 20:51:00 66 mm[Hg] Ricardo y Seybold - pressure External Heart rate 2022-06-17 20:51:00 72 /min Nilsa Martinez eybold - External Body temperature 2022-06-17 20:51:00 36.67 Michelle Monika ey Seybold - External Respiratory rate 2022-06-17 20:51:00 16 /min Monika francisco Seybold - External Body height 2022-06-17 20:51:00 188 cm Nilsa Martinez eybold - External Body weight 2022-06-17 20:51:00 89.359 kg Nilsa Martinez eybold - External BMI 2022-06-17 20:51:00 25.29 kg/m2 Nilsa Martinez eybold - External BP Diastolic 2019-08-07 00:00:00 79 mm[Hg] [facility] Height 2019-08-07 00:00:00 74 [in_i] [facility] BMI (Body Mass 2019-08-07 00:00:00 34.8 kg/m2 [facility] BP Systolic 2019-08-07 00:00:00 162 mm[Hg] [facility] Body Weight 2019-08-07 00:00:00 271.4 [lb_av] [facility] Procedures Procedure Date / Time Performed Performing Clinician Sourc e TYMPANOMETRY 2019-08-07 00:00:00 [facility] K[facility] Tonsillectomy [facility] Plan of Care Planned Activity Planned Date Details Comments Source Instructions [facility] Encounters Start End Encounter Admission Attending Care Care Encounter Source Date/Time Date/Time Type Type Clinicians Facility Department ID 2023-01-12 2023-01-12 Outpatient NILSA HARRISON [id number] Nilsa 13:30:00 13:30:00 MERCEDES Seybo ld 2022-09-17 2022-09-17 Outpatient PREZAS, NILSA OBRIEN [id number] Nilsa 15:15:00 15:15:00 ELSI Seybol d 2022-08-10 2022-08-10 Outpatient PREZAS, NILSA OBRIEN [id number] Nilsa 13:30:00 13:30:00 ELSI Seybol d 2022-07-19 2022-07-19 Outpatient BONE-CLARK, NILSA OBRIEN [id number] Nilsa 00:00:00 00:00:00 BE Seybol d 2022-07-16 2022-07-16 Outpatient PREZAS, NILSA OBRIEN [id number] [place]a 10:00:00 10:00:00 ELSI Seybol d 2022-07-16 2022-07-16 Outpatient PRABHAKAR, NILSA OBRIEN [id number] [place]ilsa 00:00:00 00:00:00 YOHAN Seybol d 2022-07-16 2022-07-16 Outpatient PREZAS, NILSA OBRIEN [id number] N[place]a 00:00:00 00:00:00 ELSI Seybol d 2022-07-16 2022-07-16 Outpatient PREZAS, NILSA OBRIEN [id number] [place]a 00:00:00 00:00:00 ELSI Seybol d 2022-07-16 2022-07-16 Outpatient HUNTERNILSA VILLEGAS [id number] Nilsa 00:00:00 00:00:00 MERCEDES Seybo ld 2022-07-15 2022-07-15 Outpatient PREZASNILSA [id number] Nilsa 00:00:00 00:00:00 ELSI Seybol d 2022-07-14 2022-07-14 Outpatient NILSA HARRISON [id number] Nilsa 09:00:00 09:00:00 MERCEDES Seybo ld 2022-07-14 2022-07-14 Outpatient HUNILSA [id number] Nilsa 00:00:00 00:00:00 ANGELINA Seybo ld 2022-07-13 2022-07-13 Outpatient PREZAS, NILSA OBRIEN [id number] N[place]a 15:15:00 15:15:00 ELSI Seybol d 2022-07-10 2022-07-10 Outpatient PREZAS, NILSA OBRIEN [id number] N[place]a 00:00:00 00:00:00 ELSI Seybol d 2022-07-10 2022-07-10 Outpatient PREZAS, NILSA OBRIEN [id number] Nilsa 00:00:00 00:00:00 ELSI Seybol d 2022-07-01 2022-07-01 Outpatient PREZAS, NILSA OBRIEN [id number] N[place]a 00:00:00 00:00:00 ELSI Seybol d 2022-07-01 2022-07-01 Outpatient PREZAS, NILSA OBRIEN [id number] N[place]a 00:00:00 00:00:00 ELSI Seybol d 2022-06-30 2022-06-30 Outpatient PREZAS, NILSA OBRIEN [id number] N[place]a 00:00:00 00:00:00 ELSI Seybol d 2022-06-23 2022-06-23 Outpatient PREZAS, NILSA OBRIEN [id number] Nilsa 14:45:00 14:45:00 ELSI Seybol d 2022-06-22 2022-06-22 Outpatient LAB90 NILSA OBRIEN [id number] Nilsa 09:20:00 09:20:00 Seybol d 2022-06-17 2022-06-17 Outpatient LAB90 NILSA OBRIEN [id number] N[place]a 15:30:00 15:30:00 Seybol d 2022-06-17 2022-06-17 Outpatient PREZAS, NILSA OBRIEN [id number] [place] 15:00:00 15:00:00 ELSI Seybol d 2022-06-02 2022-06-02 Outpatient ZHANNA NUNES [id number] Nilsa 14:00:00 14:00:00 Seybol d 2022-05-25 2022-05-25 Outpatient PREZAS, NILSA OBRIEN [id number] N[place]a 00:00:00 00:00:00 ELSI Seybol d 2022-04-27 2022-04-27 Outpatient PREZAJose, NILSA OBRIEN [id number] [place] 00:00:00 00:00:00 ELSI Seybol d 2022-03-31 2022-03-31 Outpatient ESCOBARDAGO NILSA [id number] Nilsa 14:30:00 14:30:00 Seybol d 2022-03-31 2022-03-31 Outpatient PREZAS, NILSA OBRIEN [id number] N[place]a 00:00:00 00:00:00 ELSI Seybol d 2022-03-31 2022-03-31 Outpatient PREZAS, NILSA OBRIEN [id number] N[place]a 00:00:00 00:00:00 ELSI Seybol d 2022-03-17 2022-03-17 Office Dago Felix [id number] Nilsa 15:45:00 16:30:00 Visit Elsipilar Orozco [id number] Se old [id number] 2022-03-16 2022-03-16 Outpatient LAB90 NILSA OBRIEN [id number] N[place]a 13:45:00 13:45:00 Seybol d 2022-02-16 2022-02-16 Outpatient JULIET NILSA OBRIEN [id number] Nilsa 00:00:00 00:00:00 ELSI Seybol d 2022-02-03 2022-02-03 Office CaraDago moss [id number] Nilsa 15:45:00 16:15:00 Visit Elsi Orozco [id number] Se ybold [id number] 2022-02-02 2022-02-02 Outpatient PREZAJose, NILSA OBRIEN [id number] Nilsa 00:00:00 00:00:00 ELSI Seybol d 2022-01-30 2022-01-30 Outpatient LAB90 NILSA OBRIEN [id number] N[place]a 15:20:00 15:20:00 Seybol d 2022-01-30 2022-01-30 Outpatient PRENILSA MOSS [id number] Nilsa 00:00:00 00:00:00 ELSI Seybol d 2022-01-30 2022-01-30 Outpatient NILSA FELIX [id number] N[place]a 00:00:00 00:00:00 ELSI Seybol d 2022-01-09 2022-01-09 Outpatient NILSA FELIX [id number] [place] 00:00:00 00:00:00 ELSI Seybol d 2022-01-08 2022-01-08 Office Dago Felix [id number] Nilsa 16:00:00 16:30:00 Visit Elsi Orozco [id number] Se rodriguez [id number] 2020-06-12 2020-06-12 Outpatient Brown_R MMG MMG [id number] [place] 02:20:00 02:20:00 1118 [facility] 2019-11-03 2019-11-03 Outpatient Brown_R MMG MMG [id number] [place] 01:25:00 01:25:00 0410 [facility] 2019-09-29 2019-09-29 Outpatient Brown_R MMG MMG [id number] [place] 10:37:00 10:37:00 0306 [facility] 2019-08-25 2019-08-25 Outpatient Brown_R MMG MMG [id number] [place] 12:05:00 12:05:00 0131 [facility] 2019-08-09 2019-08-09 Outpatient Brown_R MMG MMG [id number] [place] 04:06:00 04:06:00 0115 [facility] 2019-08-07 2019-08-07 Outpatient Brown_R MMG MMG [id number] [place] 05:25:00 05:25:00 0113 [facility] 2019-08-07 2019-08-07 Palivela MM [place] - [id number] [place] 00:00:00 00:00:00 MD Venancio: [address], [place] - [address], Otolaryngol [facility] [id number] , Ph. Results Test Description Test Time Test Comments Results Result Comments Source tympanogram 2019-08-07 14:41:31 Test Item Value Reference Range Interpretation Comme nts Right (test code = Right) Type C Peak [facility] Disease [id number] 13:43:00 Test Item Value Reference Range Interpretation Comments HLA-B27 Negative HLA-B*27 Negati veB27 allele (test code = interpretation for all loci based [id number]) on IMGT/HLAdata base version 3.25This test w as developed and its performance characteristics determined by [facility]. It has not been cleared or approvedby [facility] Food and Drug Administration. HLA [facility] CLIA ID Number [id number] test was performed using PCR (Polymerase [...] = HESR) 20 mm/Hr 0-9 H Lipid [id number] 18:59:00 Test Item Value Reference Range Interpretation Comments Cholesterol (test 239 mg/dL 0-200 H code = CHOL) Triglycerides (test 80 mg/dL 9-200 N code = TRIG) HDL (test code = 48 mg/dL 40-60 N HDL) Chol/HDL (test code 5.0 Ratio 0.0-5.0 N = CHOLPHDL) LDL, Calculated 175 mg/dL 0-130 H (NOTE)RISK O F HEART (test code = LDLC) DISEASEPu blished by [place] Heart AssociationAnal yte Optimal Boderli ne Increased RiskC HOL <200 200-239 >240TRI G <150 150-199 >200HDL Male: >60 <40HDL Fema le: >60 <50LDL <100 130 -159 >160LDL NEAR OP TIMAL IS 100-129 VLDL (test code = 16 mg/dL 5-40 N VLDL) LDL/HDL (test code = 4 LDLPHDL) Comprehensive Metabolic [id number] 18:59:00 Test Item Value Reference Range Interpretation [...] validated by th e MDRD study and earl godfrey be interpretedwith caution.eGFR Re sult Interpretation: eGFR > or = 60 is in t he Normal RangeeGF R < 60 may mean kidney diseaseeGFR < 1 5 may mean kidney failureRange s recommended by the National Kid[employer] Foundation,http ://nkd ep.nih.gov [id number] 18:59:00 Test Item Value Reference Range Interpretation Comments NT ProBnp (test code = PBNP) 454 pg/mL 0-124 H CBC with [id number] 18:04:00 Test Item Value Reference Range Interpretation [...] code = ALYMPH) 1.3 K/cumm 0.5-4.6 N Nash Abs (test code = AMONO) 0.4 K/cumm 0.0-1.2 N Eos Abs (test code = AEOS) 0.20 K/cumm 0.00-0.74 N Baso Abs (test code = ABASO) 0.0 K/cumm 0.00-0.21 N
[2022-07-19] MEDS ORDERED: NA CHLORIDE 0.9% 1,000 ML ONE (10:36)
[2022-07-19 11:12] LABS: Protime INR 1.22
[2022-07-19 11:14] LABS: Absolute Lymphocytes (CBC) 0.4 K/uL (0.7-4.9); Hematocrit 31.6 % (39.6-49.0); MCV 94.6 fL (80-100); MPV 8.4 fL (7.6-11.3); RBC Red Blood Cell Count 3.34 M/uL (4.33-5.43)
--- NOTE | 2022-07-19 11:25 | RAD REPORT ---
EXAM DESCRIPTION: RAD - Chest Single View - 07/19/2022 11:02 am CLINICAL HISTORY: Cough Chest pain. COMPARISON: Chest Single View dated 07/16/2022; Chest Single View dated 12/22/2021 FINDINGS: Portable technique limits examination quality. Moderate right pleural effusion is noted. Bilateral areas of pulmonary nodules again seen, mildly pro gressive. The heart is mildly enlarged in size. No displaced fractures.
[2022-07-19 11:34] LABS: Albumin 2.7 g/dL (3.4-5.0); Bilirubin Direct 0.2 mg/dL (0-0.2); Bilirubin Total 0.5 mg/dL (0.2-1.0); Magnesium 2.1 mg/dL (1.6-2.4); Potassium 4.3 mmol/L (3.5-5.1); Protein, Total 6.9 g/dL (6.4-8.2)
[2022-07-19 11:37] LABS: Troponin High Sensitivity 17.5 pg/mL (<58.9)
--- NOTE | 2022-07-19 11:46 | RAD REPORT ---
EXAM DESCRIPTION: CT - Head Brain Wo Cont - 07/19/2022 11:37 am CLINICAL HISTORY: Headache, new or worsening Headache, drowsiness COMPARISON: Head Brain Wo Cont dated 06/23/2022; Rad Therapy Fld [facility] Head dated 11/11/2021 TECHNIQUE: All CT scans are performed using dose optimization technique as appropriate and may inclu de automated exposure control or mA/KV adjustment according to patient size. FINDINGS: No intracranial hemorrhage, hydrocephalus or extra-axial fluid collection.Mild generalized brain atrophy is present with mild periventricular and deep white matter chronic microvascular ische my changes.No areas of brain edema or evidence of midline shift. The paranasal sinuses and mastoids are clear. The calvarium is intact. IMPRESSION: No acute intracranial abnormality.
[2022-07-19 11:53] LABS: SARS-COV-2 RT PCR NEGATIVE (NEGATIVE)
[2022-07-19 11:55] LABS: Urine Blood Negative (Negative); Urine Glucose Negative (Negative); Urine Protein Negative (Negative); Urine pH 7.5 (5.0-7.0)
[2022-07-19] MEDS ORDERED: CEFTRIAXONE 1000 MG/VIAL ONE (11:59)
[2022-07-19] MEDS ORDERED: FENTANYL CITR 100 MCG/2 ML ONE ×2 (12:03→14:38)
[2022-07-19] MEDS ORDERED: ONDANSETRON 4 MG/2 ML VIAL ONE (12:03)
[2022-07-19] MEDS ORDERED: ONDANSETRON 4 MG/2 ML VIAL IV PRN (12:16)
--- NOTE | 2022-07-19 12:40 | ER ---
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 Pt reports cough and headache. 10:35 Coronavirus screen: cough unrelated to allergies, headache. Ebola Screen: Patient aa5 denies travel to an Ebola-affected area in the 21 days before illness onset. Initial Sepsis Screen: Does the patient meet any 2 criteria? No. Patient's initial sepsis screen is negative. Does the patient have a suspected source of infection? No. Patient's initial sepsis screen is negative. Risk Assessment: Do you want to hurt yourself or someone else? Patient reports no desire to harm self or others. Onset of symptoms was June 2022. 10:35 Acuity: MARIPOSA 3 aa5 10:35 Method Of Arrival: Wheelchair aa5 Historical: - Allergies: 10:21 No Known Allergies; aa5 - Home Meds: 12:14 amlodipine 5 mg tab 1 tab once daily [Active]; sodium chloride 1 gram oral tab daily hb [Active]; fludrocortisone 0.1 mg oral tab 1 tab once daily [Active]; digoxin 250 mcg (0.25 mg) Oral tab [Active]; captopril 25 mg Oral tab 1 tab 2 times per day [Active]; Eliquis 2.5 mg oral tab 2 times per day [Active]; tamsulosin 0.4 mg oral cap 1 cap once daily [Active]; atorvastatin 40 mg oral tab 1 tab once daily [Active]; melatonin 5 mg Oral tab [Active]; Hydrocodone-Acetaminophen Oral as needed [Active]; - PMHx: 10:21 Atrial fibrillation; Hyperlipidemia; Hypertension; Orthostatic hypotension; THROAT CA; aa5 Tongue CA; Chemotherapy and Radiation; - PSHx: 10:21 hernia repair; knee replacement; PEG tube; aa5 - Immunization history:: Adult Immunizations unknown. - Social history:: Smoking status: Patient/guardian denies using tobacco, the patient reports quitting approximately 34 years ago. Screenin:02 [facility] ED Fall Risk Assessment (Adult) Score/Fall Risk Level 0 - 2 = Low Risk hb Oriented to surroundings, Maintained a safe environment. Abuse screen: Denies threats or abuse. Denies injuries from another. Nutritional screening: No deficits noted. Tuberculosis screening: No symptoms or risk factors identified. Assessment: 11:03 General: Appears in no apparent distress. Behavior is calm, cooperative. Pain: Pain hb currently is 5 out of 10 on a pain scale. Neuro: Level of Consciousness is awake, alert, obeys commands, Oriented to person, place, time, situation. Cardiovascular: Patient's skin is warm and dry. Respiratory: Reports shortness of breath at rest on exertion Respiratory effort is even, unlabored, Respiratory pattern is regular, symmetrical. GI: No signs and/or symptoms were reported involving the gastrointestinal system. PEG tube in place, clamped. : No signs and/or symptoms were reported regarding the genitourinary system. EENT: No signs and/or symptoms were reported regarding the EENT system. Derm: Skin is pink, warm \T\ dry. Musculoskeletal: No signs and/or symptoms reported regarding the musculoskeletal system. 12:00 Reassessment: Patient appears in no apparent distress at this time. Patient and/or hb family updated on plan of care and expected duration. Pain level reassessed. Patient is alert, oriented x 3, equal unlabored respirations, skin warm/dry/pink. 13:00 Reassessment: Patient appears in no apparent distress at this time. Patient and/or eh3 family updated on plan of care and expected duration. Pain level reassessed. Patient is alert, oriented x 3, equal unlabored respirations, skin warm/dry/pink. 14:00 Reassessment: Patient appears in no apparent distress at this time. Patient and/or eh3 family updated on plan of care and expected duration. Pain level reassessed. Patient is alert, oriented x 3, equal unlabored respirations, skin warm/dry/pink. 14:30 Reassessment: Patient appears in no apparent distress at this time. Patient is alert, eh3 oriented x 3, equal unlabored respirations, skin warm/dry/pink. Pt states is pain is coming back and requests more pain medication. Vital Signs: 10:30 BP 143 / 71; Pulse 75; Resp 15; Pulse Ox 96% on R/A; hb 10:35 BP 153 / 77; Pulse 76; Resp 16 S; Temp 98.3(O); Pulse Ox 99% on R/A; Weight 89.36 kg aa5 (R); Height 6 ft. 2 in. (187.96 cm) (R); 12:07 BP 137 / 66; Pulse 73; Resp 17; Pulse Ox 96% on R/A; Pain 5/10; hb 13:00 BP 131 / 63; Pulse 70; Resp 18; Pulse Ox 95% on R/A; eh3 14:00 BP 140 / 62; Pulse 77; Resp 22; Pulse Ox 100% on R/A; eh3 10:35 Body Mass Index 25.29 (89.36 kg, 187.96 cm) aa5 ED Course: 10:20 Patient arrived in ED. as 10:20 Lanre Felix DO is Private Physician. as 10:21 Arm band placed on Patient placed in an exam room, on a stretcher. aa5 10:22 Oli Cabrales MD is Attending Physician. orin 10:36 Triage completed. aa5 10:53 Inserted saline lock: 20 gauge in left antecubital area, using aseptic technique. Blood hb collected. 11:02 Patient has correct armband on for positive identification. hb 11:02 Basic Metabolic Panel Sent. hb 11:02 CBC with Diff Sent. hb 11:02 LFT's Sent. hb 11:02 Magnesium Sent. hb 11:02 NT PRO-BNP Sent. hb 11:02 PT-INR Sent. hb 11:02 Troponin HS Sent. hb 11:04 XRAY Chest (1 view) In Process Unspecified. EDMS 11:38 Head Brain Wo Cont In Process Unspecified. EDMS 11:47 Aria Steiner, RN is Primary Nurse. hb 12:37 Jason Matthews MD is Hospitalizing Provider. orin 14:49 No provider procedures requiring assistance completed. Patient admitted, IV remains in eh3 place. Administered Medications: 11:02 Drug: NS 0.9% 1000 ml Route: IV; Rate: 125 ml/hr; Site: left antecubital; hb 14:47 Follow up: IV Status: Infusion continued upon admission; IV Intake: 500ml eh3 11:59 Drug: Rocephin (cefTRIAXone) 1 grams Route: IV; Rate: per protocol; Site: left tw5 antecubital; 12:00 Follow up: Response: No adverse reaction; IV Status: Completed infusion; IV Intake: [id number] 12:07 Drug: fentaNYL (PF) 25 mcg Route: IVP; Site: left antecubital; hb 13:00 Follow up: Response: Pain is decreased eh3 12:07 Drug: Zofran (Ondansetron) 4 mg Route: IVP; Site: left antecubital; hb 13:00 Follow up: Response: No adverse reaction eh3 12:50 Drug: Solu-CORTEF (hyrdoCORTISONE) 100 mg Route: IVP; Site: left antecubital; eh3 13:30 Follow up: Response: Marked relief of symptoms eh3 12:50 Drug: Xopenex (levalbuterol) 2.5 mg Route: Inhalation; eh3 12:50 Drug: AtroVENT (ipratropium) Aerosol 0.5 mg Route: Inhalation; eh3 14:40 Drug: fentaNYL (PF) 25 mcg Route: IVP; Site: left antecubital; eh3 14:48 Follow up: Response: Medication administered at discharge. 3 Medication: 14:49 VIS not applicable for this client. eh3 Intake: 12:00 IV: 20ml; Total: 20ml. eh3 14:47 IV: 500ml; Total: 520ml. 3 Outcome: 12:40 Decision to Hospitalize by Provider. orin 14:51 Admitted to Tele accompanied by [facility], via wheelchair, room 406, with chart, Report eh3 called to Radha 14:51 Condition: stable 14:51 Instructed on the need for admit. 14:52 Patient left the ED. 3 Signatures: Dispatcher [employer] EDMS Oli Cabrales MD MD cha Martinez, Amelia as Calderon, Audri RN RN aa5 Aria Steiner RN RN hb Wood, Tiffany 5 Mary Bowman RN RN 3 Corrections: (The following items were deleted from the chart) 10:36 10:21 Chief complaint: aa5 aa5
--- NOTE | 2022-07-19 12:40 | EDPHYS ---
Physician Documentation [facility] Name: Balwinder Cox Age: 77 yrs Sex: Male : 1945 Arrival Date: 07/19/2022 Time: 10:20 Bed 15 Private MD: Lanre Felix ED Physician Oli Cabrales HPI: 07/19 12:29 This 77 yrs old Male presents to ER via Wheelchair with complaints of orin Shortness Of Breath. 12:29 The patient has shortness of breath at rest, with light activity. Onset: The orin symptoms/episode began/occurred 10 day(s) ago. Duration: The symptoms are continuous, and are steadily getting worse. The patient's shortness of breath is aggravated by coughing, is alleviated by rest, sitting up, application of supplemental oxygen. Associated signs and symptoms: Pertinent positives: non-productive cough. Severity of symptoms: At their worst the symptoms were mild moderate in the emergency department the symptoms have improved mildly. The patient has experienced similar episodes in the past, several times. Historical: - Allergies: 10:21 No Known Allergies; aa5 - Home Meds: 12:14 amlodipine 5 mg tab 1 tab once daily [Active]; sodium chloride 1 gram oral tab daily hb [Active]; fludrocortisone 0.1 mg oral tab 1 tab once daily [Active]; digoxin 250 mcg (0.25 mg) Oral tab [Active]; captopril 25 mg Oral tab 1 tab 2 times per day [Active]; Eliquis 2.5 mg oral tab 2 times per day [Active]; tamsulosin 0.4 mg oral cap 1 cap once daily [Active]; atorvastatin 40 mg oral tab 1 tab once daily [Active]; melatonin 5 mg Oral tab [Active]; Hydrocodone-Acetaminophen Oral as needed [Active]; - PMHx: 10:21 Atrial fibrillation; Hyperlipidemia; Hypertension; Orthostatic hypotension; THROAT CA; aa5 Tongue CA; Chemotherapy and Radiation; - PSHx: 10:21 hernia repair; knee replacement; PEG tube; aa5 - Immunization history:: Adult Immunizations unknown. - Social history:: Smoking status: Patient/guardian denies using tobacco, the patient reports quitting approximately 34 years ago. ROS: 12:30 Constitutional: Negative for fever, chills, and weight loss, Eyes: Negative for injury, orin pain, redness, and discharge, ENT: Negative for injury, pain, and discharge, Neck: Negative for injury, pain, and swelling, Cardiovascular: Negative for chest pain, palpitations, and edema, Abdomen/GI: Negative for abdominal pain, nausea, vomiting, diarrhea, and constipation, Back: Negative for injury and pain, : Negative for injury, bleeding, discharge, and swelling, MS/Extremity: Negative for injury and deformity, Skin: Negative for injury, rash, and discoloration, Psych: Negative for depression, anxiety, suicide ideation, homicidal ideation, and hallucinations, Allergy/Immunology: Negative for hives, rash, and allergies, Endocrine: Negative for neck swelling, polydipsia, polyuria, polyphagia, and marked weight changes, Hematologic/Lymphatic: Negative for swollen nodes, abnormal bleeding, and unusual bruising. 12:30 Respiratory: Positive for cough, shortness of breath, wheezing, expiratory, decreased bs right. Exam: 12:30 Constitutional: This is a well developed, well nourished patient who is awake, alert, orin and in no acute distress. Head/Face: Normocephalic, atraumatic. Eyes: Pupils equal round and reactive to light, extra-ocular motions intact. Lids and lashes normal. Conjunctiva and sclera are non-icteric and not injected. Cornea within normal limits. Periorbital areas with no swelling, redness, or edema. ENT: Nares patent. No nasal discharge, no septal abnormalities noted. Tympanic membranes are normal and external auditory canals are clear. Oropharynx with no redness, swelling, or masses, exudates, or evidence of obstruction, uvula midline. Mucous membranes moist. Neck: Trachea midline, no thyromegaly or masses palpated, and no cervical lymphadenopathy. Supple, full range of motion without nuchal rigidity, or vertebral point tenderness. No Meningismus. Chest/axilla: Normal chest wall appearance and motion. Nontender with no deformity. No lesions are appreciated. Cardiovascular: Regular rate and rhythm with a normal S1 and S2. No gallops, murmurs, or rubs. Normal PMI, no JVD. No pulse deficits. Abdomen/GI: Soft, non-tender, with normal bowel sounds. No distension or tympany. No guarding or rebound. No evidence of tenderness throughout. Back: No spinal tenderness. No costovertebral tenderness. Full range of motion. Male : Normal genitalia with no discharge or lesions. Skin: Warm, dry with normal turgor. Normal color with no rashes, no lesions, and no evidence of cellulitis. MS/ Extremity: Pulses equal, no cyanosis. Neurovascular intact. Full, normal range of motion. Neuro: Awake and alert, GCS 15, oriented to person, place, time, and situation. Cranial nerves II-XII grossly intact. Motor strength 5/5 in all extremities. Sensory grossly intact. Cerebellar exam normal. Normal gait. Psych: Awake, alert, with orientation to person, place and time. Behavior, mood, and affect are within normal limits. 12:30 ECG was reviewed by the Attending Physician. 12:30 Respiratory: the patient does not display signs of respiratory distress, Respirations: normal, no acute changes, that is mild is noted, Breath sounds: decreased breath sounds, that are moderate, are heard in the right middle lobe, right lower lobe, right posterior upper lobe, right posterior middle lobe and right posterior lower lobe. Vital Signs: 10:30 BP 143 / 71; Pulse 75; Resp 15; Pulse Ox 96% on R/A; hb 10:35 BP 153 / 77; Pulse 76; Resp 16 S; Temp 98.3(O); Pulse Ox 99% on R/A; Weight 89.36 kg aa5 (R); Height 6 ft. 2 in. (187.96 cm) (R); 12:07 BP 137 / 66; Pulse 73; Resp 17; Pulse Ox 96% on R/A; Pain 5/10; hb 13:00 BP 131 / 63; Pulse 70; Resp 18; Pulse Ox 95% on R/A; eh3 14:00 BP 140 / 62; Pulse 77; Resp 22; Pulse Ox 100% on R/A; eh3 10:35 Body Mass Index 25.29 (89.36 kg, 187.96 cm) aa5 MDM: 10:22 Patient medically screened. orin 12:35 Differential diagnosis: Anemia Bronchitis CHF exacerbation, Chronic Obstructive orin Pulmonary Disease pneumonia, Pneumothorax reactive airway disease, Unstable Angina. Antibiotic administration: Rocephin and Zithromax given. The patient's Wells Deep Vein Thrombosis Score was calculated as follows: Malignancy Total Score: 0-2 Pts- Low Risk. Differential Diagnosis: Bronchitis Influenza Upper Respiratory Infection Asthma Exacerbation Viral Syndrome Pneumonia. The patient's pulmonary embolism risk score was calculated as follows: malignancy Total Score: 0-2 points. This patient was found to be at low risk for a pulmonary embolism by using the Well's assessment criteria. Immunization status: Pneumococcal vaccine: Influenza vaccine: Data reviewed: vital signs, nurses notes, lab test result(s), EKG, radiologic studies, CT scan, doppler, plain films. Data interpreted: telemetry monitor: rate is 73 beats/min, rhythm is regular, Pulse oximetry: on room air is 96 %. Test interpretation: by ED physician or midlevel provider: ECG, plain radiologic studies. Counseling: I had a detailed discussion with the patient and/or guardian regarding: the historical points, exam findings, and any diagnostic results supporting the discharge/admit diagnosis, lab results, radiology results, the need for further work-up and treatment in the hospital. 07/19 10:26 Order name: Basic Metabolic Panel; Complete Time: 11:57 [facility] 07/19 10:26 Order name: CBC with Diff; Complete Time: 11:57 [facility] 07/19 10:26 Order name: LFT's; Complete Time: 11:57 [facility] 07/19 10:26 Order name: Magnesium; Complete Time: 11:57 [facility] 07/19 10:26 Order name: NT PRO-BNP; Complete Time: 11:57 [facility] 07/19 10:26 Order name: PT-INR; Complete Time: 11:57 [facility] 07/19 10:26 Order name: Troponin HS; Complete Time: 11:57 [facility] 07/19 10:26 Order name: Blood Culture Adult (2) [facility] 07/19 10:26 Order name: Lactate w/ 2H reflex if indic.; Complete Time: 11:57 [facility] 07/19 10:26 Order name: Urine Culture [facility] 07/19 10:26 Order name: COVID-19/FLU A+B; Complete Time: 11:57 [facility] 07/19 11:55 Order name: Urine Dipstick-Ancillary; Complete Time: 11:57 [facility] 07/19 12:20 Order name: CBC with Automated Diff [facility] 07/19 12:20 Order name: CBC with Automated Diff [facility] 07/19 10:26 Order name: XRAY Chest (1 view); Complete Time: 11:57 [facility] 07/19 11:16 Order name: CT Head Brain wo Cont [facility] 07/19 11:20 Order name: Head Brain Wo Cont; Complete Time: 11:57 [facility] 07/19 12:20 Order name: Comprehensive Metabolic Panel [facility] 07/19 12:20 Order name: Comprehensive Metabolic Panel [facility] 07/19 12:22 Order name: Thoracentesis w/ US Guide [facility] 07/19 12:25 Order name: Chest Lateral Decubitus [facility] 07/19 12:29 Order name: Digoxin [facility] 07/19 12:58 Order name: Digoxin Level [facility] 07/19 10:26 Order name: EKG; Complete Time: 10:26 [facility] 07/19 10:26 Order name: Cardiac monitoring; Complete Time: 10:35 [facility] 07/19 10:26 Order name: EKG - Nurse/Tech; Complete Time: 10:55 [facility] 07/19 10:26 Order name: IV Saline Lock; Complete Time: 11:02 [facility] 07/19 10:26 Order name: Labs collected and sent; Complete Time: 11:02 [facility] 07/19 10:26 Order name: O2 Per Protocol; Complete Time: 11:02 [facility] 07/19 10:26 Order name: O2 Sat Monitoring; Complete Time: 11:02 [facility] 07/19 10:26 Order name: Urine Dipstick-Ancillary (obtain specimen); Complete Time: 11:58 [facility] 07/19 12:20 Order name: Regular [facility] EC:30 Rate is 72 beats/min. Rhythm is regular. QRS [place] is Normal. QT interval is normal. T orin waves are Normal. No ST changes noted. Clinical impression: NSR w/ Non-specific ST/T Changes and No evidence of ischemia. Interpreted by me. Reviewed by me. Administered Medications: 11:02 Drug: NS 0.9% 1000 ml Route: IV; Rate: 125 ml/hr; Site: left antecubital; hb 14:47 Follow up: IV Status: Infusion continued upon admission; IV Intake: 500ml eh3 11:59 Drug: Rocephin (cefTRIAXone) 1 grams Route: IV; Rate: per protocol; Site: left tw5 antecubital; 12:00 Follow up: Response: No adverse reaction; IV Status: Completed infusion; IV Intake: [id number] 12:07 Drug: fentaNYL (PF) 25 mcg Route: IVP; Site: left antecubital; hb 13:00 Follow up: Response: Pain is decreased eh3 12:07 Drug: Zofran (Ondansetron) 4 mg Route: IVP; Site: left antecubital; 13:00 Follow up: Response: No adverse reaction eh3 12:50 Drug: Solu-CORTEF (hyrdoCORTISONE) 100 mg Route: IVP; Site: left antecubital; 3 13:30 Follow up: Response: Marked relief of symptoms eh3 12:50 Drug: Xopenex (levalbuterol) 2.5 mg Route: Inhalation; eh3 12:50 Drug: AtroVENT (ipratropium) Aerosol 0.5 mg Route: Inhalation; eh3 14:40 Drug: fentaNYL (PF) 25 mcg Route: IVP; Site: left antecubital; 3 14:48 Follow up: Response: Medication administered at discharge. 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
[2022-07-19] MEDS ORDERED: LEVALBUTEROL 1.25 MG/3 ML NEB ONE (12:53)
[2022-07-19] MEDS ORDERED: HYDROCORTISONE SUC 100 MG INJ ONE (12:53)
[2022-07-19] MEDS ORDERED: IPRATROPIUM BROM 0.5MG/2.5ML ONE (12:54)
[2022-07-19] MEDS: Ringers Lactate 1,000 ML IV SCH (15:11)
[2022-07-19] MEDS: Oxycodone HCl/Acetaminophen 1 TAB TAB PO SCH ×2 (15:14→20:14)
[2022-07-19 15:50] VITALS: BMI 25.2
--- NOTE | 2022-07-19 15:58 | P.HP ---
Certification for Inpatient With expected LOS: >2 Midnights Practitioner: I am a practitioner with admitting privileges, knowledge of patient current condition, hospital course, and medical plan of care. Services: Services provided to patient in accordance with Admission requirements found in Title 42 Section 412.3 of the Code of Federal Regulations Patient History Date of Service: 07/19/22 Reason for admission: Chest pain sided pleural effusion History of Present Illness: Patient is 77 years of age treated for head and neck metastatic cancer symptoms began about 10 days ago started complaining of worsening shortness of breath right-sided chest pain denies any fever or chills nonproductive cough came here to the emergency room CT angiogram was done and was discharged home unable to cope at home back in the emergency room is feeling very weak and does have a PEG tube Allergies No Known Allergies Allergy (Verified 04/24/22 08:21) Home Medications: Atorvastatin Calcium [Lipitor] 40 mg PO SEECOM 10/21/21 Tamsulosin HCl [Flomax] 0.4 mg FT DAILY 10/21/21 Acetaminophen [Tylenol Extra Strength] 500 mg FT Q6H PRN MDD max 4gm/24hrs 12/21/21 Digoxin [Lanoxin*] 0.25 mg FT DAILY 12/21/21 Hydrocodone 5/APAP 325 [[place] 5/325*] 1 tab FT Q6H PRN 12/21/21 Melatonin 10 mg FT BEDTIME PRN 12/21/21 Sodium Chloride 1 gm FT DAILY 12/21/21 Cranberry Fruit Extract 400 mg FT BID #60 cap 12/29/21 Fludrocortisone [Florinef *] 0.1 mg FT DAILY #30 tab 12/29/21 Apixaban [Eliquis *] 2.5 mg FT BID 04/01/22 Amlodipine Besylate 5 mg FT DAILY 07/19/22 Jevity 1.5 Cj Liquid 237 ml FT 6XD 07/19/22 captopriL [Capoten*] 25 mg FT BEDTIME 07/19/22 - Past Medical/Surgical History Has patient received pneumonia vaccine in the past: No Diabetic: No -: BPH with LUTS -: Hyponatremia -: Malnutrition -: Atrial fibrillation, hyperlipidemia hypertension -: Ear nose and throat cancer -: Hernia repair -: Knee replacement -: PEG tube - Social History Smoking Status: Former smoker Alcohol use: No CD- Drugs: Yes Caffeine use: No Place of Residence: Home Review of Systems General: Weakness Respiratory: Shortness of Breath, Pleuritic Pain Cardiovascular: Chest Pain Neurological: Weakness Physical Examination - Vital Signs Temperature: 97.7 F Blood Pressure: 163/75 Pulse: 86 Respirations: 16 Pulse Ox (%): 94 - Physical Exam General: Alert, In no apparent distress, Moderate distress Neck: Supple Respiratory: Clear to auscultation bilaterally, Diminished (The right side) Cardiovascular: No edema, Regular rate/rhythm, Normal S1 S2 Gastrointestinal: Normal bowel sounds, Soft and benign Musculoskeletal: No clubbing, No swelling Integumentary: No rashes, No breakdown - Studies Laboratory Data (last 24 hrs) 07/19/22 10:52: PT 13.4 H, INR 1.22 07/19/22 10:52: WBC 5.90, Hgb 10.5 L, Hct 31.6 L, Plt Count 176 07/19/22 10:52: Sodium 133 L, Potassium 4.3, BUN 22 H, Creatinine 0.69 L, Glucose 108 H, Magnesium 2.1, Total Bilirubin 0.5, AST 11 L, ALT 19, Alkaline Phosphatase 58 Assessment and Plan - Problems (Diagnosis) (1) Pleural effusion Current Visit: Yes Status: Acute Plan: Patient is 77 years of age with metastatic head and neck cancer aunts with shortness of breath right-sided pleural effusion which is recently in the emergency room on July 16 that was negative for PE bilateral nodules consistent with metastatic disease patient is in a lot of discomfort and to admit the patient for pain relief scheduled for thoracentesis in 2 days he is on Eliquis patient is mildly anemic labs reviewed chest x-ray CT scan all reviewed cussed with the family members - Advance Directives Does patient have a Living Will: No Does patient have a Durable POA for Healthcare: No
[2022-07-19] MEDS ORDERED: JEVITY 1.5 CAL LIQUID 1,000 ML BOT FT SCH (16:00)
[2022-07-19] MEDS: JEVITY 1.5 CAL LIQUID 1,000 ML BOT FT SCH ×3 (16:00→23:06)
--- NOTE | 2022-07-19 17:47 | RAD REPORT ---
EXAM DESCRIPTION: RAD - Chest Lateral Decubitus - 07/19/2022 5:21 pm CLINICAL HISTORY: R effusion Pleural effusion COMPARISON: Chest Single View dated 07/19/2022 FINDINGS: The [id number] decubitus view shows layering pleural effusion measuring 7 cm in maxim um depth. The [id number] decubitus view shows no significant layering fluid.
[2022-07-19] MEDS: MELATONIN 5 MG TABLET PO PRN (20:14)
[2022-07-19] MEDS: CAPTOPRIL 25 MG TABLET FT SCH (20:14)
[2022-07-19] MEDS: ATORVASTATIN 40 MG TAB PO SCH (20:14)
[2022-07-19] MEDS: MAGNESIUM HYDROXIDE 8% 30 ML FT PRN (23:05)
[2022-07-19] MEDS: MORPHINE 2 MG/ML SYR IV PRN (23:13)
[2022-07-20] MEDS: Ringers Lactate 1,000 ML IV SCH ×2 (02:00→09:00)
[2022-07-20] MEDS: Oxycodone HCl/Acetaminophen 1 TAB TAB PO SCH ×3 (05:54→20:33)
[2022-07-20 06:48] LABS: Absolute Lymphocytes (CBC) 0.5 K/uL (0.7-4.9); Hematocrit 30.8 % (39.6-49.0); Lymphocytes % 7.4 % (15.3-44.8); MCV 94.8 fL (80-100); MPV 8.6 fL (7.6-11.3); RBC Red Blood Cell Count 3.25 M/uL (4.33-5.43)
[2022-07-20 07:14] LABS: Albumin 2.5 g/dL (3.4-5.0); Bilirubin Total 0.3 mg/dL (0.2-1.0); Protein, Total 6.5 g/dL (6.4-8.2)
[2022-07-20] MEDS: JEVITY 1.5 CAL LIQUID 1,000 ML BOT FT SCH ×6 (07:45→23:25)
[2022-07-20] MEDS: DIGOXIN 0.25 MG TABLET FT SCH (08:01)
[2022-07-20] MEDS: TAMSULOSIN 0.4 MG SR CAP FT SCH (08:01)
[2022-07-20] MEDS: FLUDROCORTISONE 0.1 MG TAB FT SCH (08:01)
[2022-07-20] MEDS: MORPHINE 2 MG/ML SYR IV PRN ×4 (08:14→23:25)
[2022-07-20] MEDS ORDERED: AMLODIPINE 5 MG TAB FT SCH (09:00)
--- NOTE | 2022-07-20 10:53 | P.PN ---
Subjective Date of Service: 07/20/22 Chief Complaint: Chest pain sided pleural effusion Subjective: Improving (Patient is improving doing well chest pain has improved feels better) Review of Systems General: Weakness Respiratory: Cough, Pleuritic Pain Physical Examination - Vital Signs Temperature: 97.8 F Blood Pressure: 179/79 Pulse: 71 Respirations: 18 Pulse Ox (%): 92 - Physical Exam General: Alert, In no apparent distress, Oriented x3 Respiratory: Clear to auscultation bilaterally, Diminished (Right side) Cardiovascular: No edema, Regular rate/rhythm - Studies Laboratory Data (last 24 hrs) 07/19/22 10:52: PT 13.4 H, INR 1.22 07/19/22 10:52: WBC 5.90, Hgb 10.5 L, Hct 31.6 L, Plt Count 176 07/19/22 10:52: Sodium 133 L, Potassium 4.3, BUN 22 H, Creatinine 0.69 L, Glucose 108 H, Magnesium 2.1, Total Bilirubin 0.5, AST 11 L, ALT 19, Alkaline Phosphatase 58 Assessment And Plan - Current Problems (Diagnosis) (1) Pleural effusion Current Visit: Yes Status: Acute Plan: She has a pleural effusion most likely from metastases and multiple pulmonary metastases from his head and neck cancer cussed with Dr. Juan hoffmann he is to follow-up with an oncologist after discharge tomorrow chemistries lab work reviewed n.p.o. after midnight discussed with t the patient regarding the right- sided thoracentesis been complications include bleeding infection lung collapse patient's Eliquis has been stopped patient has a feeding tube in place
[2022-07-20] MEDS: ATORVASTATIN 40 MG TAB PO SCH (20:33)
[2022-07-20] MEDS: MAGNESIUM HYDROXIDE 8% 30 ML FT PRN (20:33)
[2022-07-20] MEDS: CAPTOPRIL 25 MG TABLET FT SCH (20:34)
[2022-07-21 03:43] LABS: Protime INR 1.11
[2022-07-21] MEDS: MORPHINE 2 MG/ML SYR IV PRN ×4 (04:23→22:44)
[2022-07-21] MEDS: Oxycodone HCl/Acetaminophen 1 TAB TAB PO SCH ×3 (06:18→20:08)
[2022-07-21] MEDS: JEVITY 1.5 CAL LIQUID 1,000 ML BOT FT SCH ×6 (06:37→22:43)
[2022-07-21] MEDS: FLUDROCORTISONE 0.1 MG TAB FT SCH (10:12)
[2022-07-21] MEDS: TAMSULOSIN 0.4 MG SR CAP FT SCH (10:12)
[2022-07-21] MEDS: AMLODIPINE 10 MG TAB FT SCH (10:12)
[2022-07-21] MEDS: DIGOXIN 0.25 MG TABLET FT SCH (10:12)
--- NOTE | 2022-07-21 10:24 | RAD REPORT ---
EXAM DESCRIPTION: US - Thoracentesis w/ US Guide - 07/21/2022 10:15 am CLINICAL HISTORY: Pleural effusion. R effusion COMPARISON: No comparisons FINDINGS: Preoperative diagnosis: Right pleural effusion Post operative diagnosis: Same Conscious Sedation: None. Estimated blood loss: Minimal Specimens:A small volume of fluid was sent for requested lab studies. The patient was placed in the upright recumbent position and the right posterior back was prepped and draped in the usual sterile fashion. 1% Lidocaine was infiltrated into the soft tissues for local a nesthesia. Under sonographic guidance, a thoracentesis needle and 6 [place] catheter was advanced int o the right pleural space. Approximately 1800 cc bloody fluid was aspirated. Samples were sent to [facility] for requested analysis. The patient tolerated the procedure without immediate complication and transferred to the floor in stable condition. IMPRESSION: Successful ultrasound-guided thoracentesis as detailed. Fluid obtained was bloody.
[2022-07-21 11:05] LABS: Body Fluid WBC 491 /mm^3
[2022-07-21 11:17] LABS: Appearance TURBID (CLEAR); Color of fluid Red (COLORLESS)
--- NOTE | 2022-07-21 12:33 | RAD REPORT ---
EXAM DESCRIPTION: RAD - Chest Single View - 07/21/2022 12:09 pm CLINICAL HISTORY: Status Post Thorocentesis Chest pain. COMPARISON: Chest Single View dated 07/19/2022; Chest Single View dated 07/16/2022; Chest Single Vie w dated 12/22/2021 FINDINGS: Portable technique limits examination quality. There has been a decrease in the size of the right pleural effusion. No postprocedure pneumothorax. B ilateral nodules in the lungs again seen compatible with metastases.Heart size is mildly enlarged. IMPRESSION: No postprocedure pneumothorax seen.
[2022-07-21 12:54] LABS: Body Fluid Source PLEURAL
[2022-07-21] MEDS: MAGNESIUM HYDROXIDE 8% 30 ML FT PRN (13:20)
--- NOTE | 2022-07-21 13:44 | EKG ---
Test Date: 2022-07-19 Test Time: 10:50:10 Bankruptcy Legal Assistant: REG MEASUREMENT RESULTS: Intervals: Rate: 73 UT: 220 QRSD: 102 QT: 358 QTc: 394 [place]: P: 18 UT: 220 QRS: -3 T: 14 INTERPRETIVE STATEMENTS: Sinus rhythm with 1st degree AV block T wave abnormality, consider anterior ischemia Abnormal ECG Compared to ECG 07/16/2022 11:05:18 First degree AV block now present T-wave abnormality now present Possible ischemia now present Myocardial infarct finding no longer present Electronically Signed On 07-21-22 13:39:34 JIG BORING MACHINE OPERATOR FOR METAL by Mukund Sifuentes
--- NOTE | 2022-07-21 16:35 | P.PN ---
Subjective Date of Service: 07/21/22 Chief Complaint: Chest pain sided pleural effusion Patient is complaining of headache of 3 weeks duration. Status post thoracentesis about 1800 ml of bloody pleural fluid drained. He states his shortness of breath has significantly improved. His oxygen saturation is 98% on room air. Physical Examination - Vital Signs Temperature: 97 F Blood Pressure: 135/63 Pulse: 72 Respirations: 16 Pulse Ox (%): 94 - Physical Exam General: Alert, In no apparent distress, Oriented x3 HEENT: Mucous membr. moist/pink Neck: JVD not distended Respiratory: Clear to auscultation bilaterally, Normal air movement Cardiovascular: No edema, Regular rate/rhythm, Normal S1 S2 Gastrointestinal: Soft and benign, Non-distended, No tenderness Musculoskeletal: No swelling, No tenderness Integumentary: No rashes, No cyanosis Neurological: Normal strength at 5/5 x4 extr Assessment And Plan - Current Problems (Diagnosis) (1) Pulmonary nodules Current Visit: Yes Status: Acute (2) History of head and neck cancer Current Visit: Yes Status: Acute (3) Headache Current Visit: Yes Status: Acute - Plan Status post thoracentesis. Follow-up pleural fluid cell count and cytology. Highly suspicious for malignant pleural effusion. Pulmonary nodule highly suspicious for metastatic disease. Noted patient completed radiation therapy in January 2022, currently not on any cancer treatment. Multiple head CTs done to evaluate his headache have been negative. Obtain MRI of the brain, need to rule out brain metastasis. Activity as tolerated. Monitor overnight. Possible discharge in the a.m. Resume Eliquis.
--- NOTE | 2022-07-21 20:04 | RAD REPORT ---
EXAM DESCRIPTION: MRI - Brain W/Wo Cont - 07/21/2022 7:40 pm CLINICAL HISTORY: Headache COMPARISON: No comparisons TECHNIQUE: Sagittal T1-weighted images were obtained along with PD/heavily T2-weighted and T2-FLAIR images. Axial DWI and ADC mapping sequences were also obtained along with coronal heavily T2-weighted images were obtained. Post contrast enhanced images were obtained. FINDINGS: No intracranial hemorrhage, mass or acute infarction. No edema or shift of midline structu res. No extra-axial fluid collections. Signal voids are seen as a normal finding in the major intracr anial vessels. Mild T2/FLAIR hyperintense foci throughout the centrum semiovale and green radiata. D iffuse pachymeningeal enhancement enhancement. No mastoid effusion.Paranasal sinuses are clear. IMPRESSION: Diffuse pachymeningeal enhancement of uncertain etiology. The differential is broad and could include neoplastic as well as other etiologies. Lumbar puncture and fluid analysis may be able to better evaluate.
[2022-07-21] MEDS: MELATONIN 5 MG TABLET PO PRN (20:08)
[2022-07-21] MEDS: CAPTOPRIL 25 MG TABLET FT SCH (20:09)
[2022-07-21] MEDS: APIXABAN 2.5 MG TABLET FT SCH (20:09)
[2022-07-22 03:50] LABS: Absolute Lymphocytes (CBC) 0.4 K/uL (0.7-4.9); Hematocrit 27.7 % (39.6-49.0); Lymphocytes % 8.5 % (15.3-44.8); MCV 92.6 fL (80-100); MPV 8.2 fL (7.6-11.3); RBC Red Blood Cell Count 2.99 M/uL (4.33-5.43)
[2022-07-22 04:06] LABS: Potassium 4.4 mmol/L (3.5-5.1)
[2022-07-22] MEDS: Oxycodone HCl/Acetaminophen 1 TAB TAB PO SCH ×2 (04:32→12:21)
[2022-07-22] MEDS: JEVITY 1.5 CAL LIQUID 1,000 ML BOT FT SCH ×3 (07:33→12:22)
[2022-07-22] MEDS: TAMSULOSIN 0.4 MG SR CAP FT SCH (09:04)
[2022-07-22] MEDS: APIXABAN 2.5 MG TABLET FT SCH (09:04)
[2022-07-22] MEDS: AMLODIPINE 10 MG TAB FT SCH (09:04)
[2022-07-22] MEDS: DIGOXIN 0.25 MG TABLET FT SCH (09:05)
[2022-07-22] MEDS: FLUDROCORTISONE 0.1 MG TAB FT SCH (09:05)
--- NOTE | 2022-07-22 09:54 | RAD REPORT ---
EXAM DESCRIPTION: RAD - Chest Single View - 07/22/2022 9:34 am CLINICAL HISTORY: Follow up pleural effusion COMPARISON: Chest Single View dated 07/21/2022; Chest Single View dated 07/19/2022; Chest Single Vie w dated 07/16/2022; Chest Single View dated 12/22/2021; Thoracentesis w/ US Guide dated 07/21/2022; Ch est For Pe Angio dated 07/16/2022 FINDINGS: Lines: None. Lungs: Pulmonary nodules again noted bilaterally. Pleural: Moderate right pleural effusion Cardiac: Similar size configuration. Mediastinum: Within normal limits. Bones: No acute fractures. Other: None IMPRESSION: Moderate right pleural effusion without significant interval change compared with the po st procedural radiograph from 07/21/2022. Pulmonary nodules bilaterally again noted.
[2022-07-22] MEDS: MORPHINE 2 MG/ML SYR IV PRN (10:26)
[2022-07-22 12:11] VITALS: TEMP 97.8
[2022-07-22 12:12] VITALS: BP 156/70
--- NOTE | 2022-07-22 13:48 | P.DS ---
Admission Date: 07/19/22 Discharge Date: 07/22/22 Disposition: ROUTINE DISCHARGE Discharge Condition: FAIR Reason for Admission: Chest pain sided pleural effusion - Problems (1) Pulmonary nodules Status: Acute (2) History of head and neck cancer Status: Acute (3) Headache Status: Acute (4) Pleural effusion Status: Acute Brief History of Present Illness: 77 years man with a history of head and neck metastatic cancer, status post radiation therapy, last treatment January 2022, presented to the emergency department on 07/16/22 with a complaint of shortness of breath and right-sided chest pain and cough. CT angiogram was done which was negative for PE, right pleural effusion, and demonstrated metastatic lung disease. Patient was discharged but returned to the emergency department again for worsening symptoms and feeling weak. Repeat chest x-ray showed pleural effusion and bilateral progression of disease. Patient was hospitalized for further management. Hospital Course: Patient admitted to the medical floor, and US guided thoracentesis performed. Patient's respiratory symptoms markedly improved with the thoracentesis. Pleural fluid cell count demonstrated numerous RBC, pleural fluid was bloody and highly suspicious for malignant pleural effusion. Pulmonary nodule highly suspicious for metastatic disease. He was complaining of headache that has been present for about 1 month. Multiple head CTs done to evaluate his headache have been negative. MRI of the brain done during this hospitalization showed diffuse pachymeningeal enhancement of uncertain etiology. 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 Dr. Clancy contacted who recommended Topamax for headache, which may also be prophylactic for seizures. I am told Dr. Romo, patient's radiation oncologist is arranging for PET scan as outpatient to further evaluate for LMD. Patient clinical condition has improved, vitals are stable. He is deemed stable for discharge to continue further work-up and treatment for LMD and head and neck cancer with pulmonary metastasis. Eliquis resumed. Vital Signs/Physical Exam: Temp Pulse Resp BP Pulse Ox 97.8 F 71 16 156/70 H 93 07/22/22 12:00 07/22/22 12:00 07/22/22 12:21 07/22/22 12:00 07/22/22 12:21 General: Alert, In no apparent distress, Oriented x3 HEENT: Mucous membr. moist/pink Neck: JVD not distended Respiratory: Clear to auscultation bilaterally, Normal air movement Cardiovascular: No edema, Regular rate/rhythm, Normal S1 S2 Gastrointestinal: Soft and benign, Non-distended, No tenderness Musculoskeletal: No swelling Integumentary: No cyanosis Neurological: Normal strength at 5/5 x4 extr Laboratory Data at Discharge: WBC 4.90 K/uL (4.3-10.9) 07/22/22 03:03 Hgb 9.6 g/dL (13.6-17.9) L 07/22/22 03:03 Hct 27.7 % (39.6-49.0) L 07/22/22 03:03 Plt Count 166 K/uL (152-406) 07/22/22 03:03 PT 12.2 SECONDS (9.5-12.5) 07/21/22 02:58 INR 1.11 07/21/22 02:58 Sodium 133 mmol/L (136-145) L 07/22/22 03:03 Potassium 4.4 mmol/L (3.5-5.1) 07/22/22 03:03 BUN 20 mg/dL (7-18) H 07/22/22 03:03 Creatinine 0.62 mg/dL (0.70-1.30) L 07/22/22 03:03 Glucose 103 mg/dL (74-106) 07/22/22 03:03 Magnesium 2.1 mg/dL (1.6-2.4) 07/19/22 10:52 Total Bilirubin 0.3 mg/dL (0.2-1.0) 07/20/22 06:23 AST 10 U/L (15-37) L 07/20/22 06:23 ALT 20 U/L (16-61) 07/20/22 06:23 Alkaline Phosphatase 54 U/L (45-117) 07/20/22 06:23 Cholesterol Cancelled 07/21/22 10:48 Home Medications: Atorvastatin Calcium [Lipitor] 40 mg PO SEECOM 10/21/21 Tamsulosin HCl [Flomax] 0.4 mg FT DAILY 10/21/21 Acetaminophen [Tylenol Extra Strength] 500 mg FT Q6H PRN MDD max 4gm/24hrs 12/21/21 Digoxin [Lanoxin*] 0.25 mg FT DAILY 12/21/21 Melatonin 10 mg FT BEDTIME PRN 12/21/21 Sodium Chloride 1 gm FT DAILY 12/21/21 Cranberry Fruit Extract 400 mg FT BID #60 cap 12/29/21 Fludrocortisone [Florinef *] 0.1 mg FT DAILY #30 tab 12/29/21 Apixaban [Eliquis *] 2.5 mg FT BID 04/01/22 Amlodipine Besylate 5 mg FT DAILY 07/19/22 Jevity 1.5 Cj Liquid 237 ml FT 6XD 07/19/22 Mag Hydroxide 8% [Milk Of Magnesia*] 30 ml FT DAILY PRN 07/19/22 captopriL [Capoten*] 25 mg FT BEDTIME 07/19/22 Oxycodone HCl/Acetaminophen [Percocet 5/325 Tab*] 1 tab PO Q8H #12 tab 07/22/22 Topiramate [Topamax] 25 mg PO BID #60 tab 07/22/22 New Medications: Oxycodone HCl/Acetaminophen [Percocet 5/325 Tab*] 1 tab PO Q8H #12 tab Topiramate [Topamax] 25 mg PO BID #60 tab Diet: AHA Activity: Ad adrshan Followup: Isaac Winter MD [ASSOCIATE-ACTIVE - CAN ADMIT] - 1 Week (call to schedule an appointment) Lanre Felix DO [Primary Care Provider] - 1-2 Weeks (call to schedule an appointment) Time spent managing pt's care (in minutes): 35
[2022-07-22 14:43] VITALS: O2SAT 93
--- NOTE | 2022-07-23 17:55 | EKG ---
Test Date: 2022-07-19 Test Time: 10:51:16 Unstacker: REG MEASUREMENT RESULTS: Intervals: Rate: 72 MD: 224 QRSD: 104 QT: 360 QTc: 394 [place]: P: -6 MD: 224 QRS: -7 T: 16 INTERPRETIVE STATEMENTS: Sinus rhythm with 1st degree AV block T wave abnormality, consider anterior ischemia Abnormal ECG Compared to ECG 07/19/2022 10:50:10 No significant changes Electronically Signed On 07-23-22 17:47:57 CRIMINOLOGY TEACHER by Mukund Sifuentes
[2022-07-24 19:46] LABS: TOTAL PROTEIN, PLEURAL FLUID 4.4 g/dL
== END 2022-07-22 15:26 | disposition home or self-care (01) | DRG 147 ==
LOC: ER 10:19 → ERHOLD 12:17 → 4TH 13:58
PROVIDERS: ADMIT Internal Medicine Sleep Medicine; ATTEND Internal Medicine
PROC: 0W993ZZ Drainage of Right Pleural Cavity, Percutaneous Approach (ICD-10-PCS; principal; 2022-07-21)
DX: C76.0 Malignant neoplasm of head, face and neck (principal); C78.00 Secondary malignant neoplasm of unspecified lung; C80.0 Disseminated malignant neoplasm, unspecified; J91.0 Malignant pleural effusion; E78.5 Hyperlipidemia, unspecified; I10 Essential (primary) hypertension; R51.9 Headache, unspecified; R56.9 Unspecified convulsions; Z92.21 Personal history of antineoplastic chemotherapy; Z79.01 Long term (current) use of anticoagulants; Z87.891 Personal history of nicotine dependence; Z79.899 Other long term (current) drug therapy; Z96.659 Presence of unspecified artificial knee joint; Z20.822 Contact with and (suspected) exposure to COVID-19
CPT/HCPCS: 0240U; 32555; 36415; 70450; 70553; 71045; 71046; 80048; 80053; 80076; 80162; 81003; 82945; 82947; 83605; 83615; 83735; 83880; 84157; 84311; 84484; 85025; 85610; 87040; 87086; 87088; 87102; 87205; 88108; 88305; 89050; 93005; 96361; 96374; 96375; 99285; A9577; J1720; J2270; J2405; J3010; J7030; J7120; J7614; J7644